=== PATIENT | female | born 1970 | race Caucasian/White ===

== ENCOUNTER 2019-07-22 19:54 | Emergency (ER) | payer MEDICARE, SELFPAY ==
[2019-07-22 20:17] VITALS: BP 103/64; PULSE 67; RESP 16; TEMP 36.4; O2SAT 98; BMI 27.3
--- NOTE | 2019-07-22 21:44 | ED_ITS ---
HPI - Back Pain/Injury General Chief Complaint: Back Pain/Injury Stated Complaint: delaney horse in butt x2 1/2 days Time Seen by Provider: 07/22/19 20:21 Source: patient Mode of arrival: Ambulatory Limitations: no limitations History of Present Illness HPI Narrative: 49-year-old female smoker with history of renal disease presents with a chief complaint of left buttock pain and some radiation down the back of her leg for the past few days. 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 She denies any trouble controlling bowel or bladder. She has no fever or chills. She denies any foot drop or lower extremity weakness, numbness or tingling. Her pain is better with rest and worse with motion or palpation MD Complaint: back pain Onset (ago): day(s) Duration: constant Similar Symptoms Previously: Yes Location: lumbar spine and left lower back Severity: moderate Quality: stabbing and aching Radiation: left leg Relieving factors: immobilization Exacerbating factors: movement and walking Associated symptoms: denies other symptoms Treatments prior to arrival: acetaminophen Related Data Previous Rx's Medication Instructions Recorded ketorolac 10 mg PO Q6H PRN #10 tab 07/22/19 lidocaine 1 patch TOP DAILY #15 each 07/22/19 Allergies Allergy/AdvReac Type Severity Reaction Status Date / Time No Known Drug Allergies Allergy Verified 07/22/19 22:51 Review of Systems Constitutional Constitutional: Denies chills, Denies fatigue, Denies fever(s), Denies frequent falls, Denies lethargy and Denies weakness Eyes Eyes: Denies change in vision, Denies eye discharge, Denies irritation and Denies loss of vision ENT Ears, Nose, Mouth, and Throat: Denies change in voice, Denies dizziness, Denies neck pain, Denies sore throat and Denies throat swelling Cardiovascular Cardiovascular: Denies chest pain, Denies irregular heart rhythm, Denies lightheadedness, Denies palpitations, Denies dyspnea, Denies dyspnea on exertion and Denies orthopnea Respiratory Respiratory: Denies cough, Denies dyspnea, Denies dyspnea on exertion and Denies wheezing Gastrointestinal Gastrointestinal: Denies abdominal pain, Denies change in bowel habits, Denies diarrhea, Denies nausea and Denies vomiting Genitourinary Genitourinary: Denies hematuria, Denies flank pain, Denies urinary incontinence and Denies urinary urgency Musculoskeletal Musculoskeletal: Reports back pain, Denies muscle weakness, Denies neck pain, Denies numbness and Denies tingling Integumentary/Breasts Skin/Breast: Denies pruritus, Denies erythema, Denies rash and Denies wounds Neurologic Neurologic: Denies behavioral changes, Denies confusion, Denies dizziness, Denies frequent falls, Denies loss of vision, Denies numbness, Denies tingling and Denies weakness Psychiatric Psychiatric: Denies anxiety, Denies behavioral changes, Denies confusion, Denies depression, Denies homicidal ideation and Denies suicidal ideation Endocrine Endocrine: Denies fatigue, Denies flushing and Denies palpitations Hematologic/Lymphatic Hematologic/Lymphatic: Denies easy bruising Allergic/Immunologic Allergic/Immunologic: Denies urticaria, Denies throat swelling and Denies wheezing PFSH Social History Smoking Status: Current every day smoker Social History Smoking Status: Current every day smoker Exam Narrative Exam Narrative: GENERAL: [49] year old patient appears stated age. Well- nourished, well-developed patient, in mild distress, rubbing her left lower back and buttock HEAD: Atraumatic. Normocephalic. EYES: Pupils equal round and reactive. Extraocular motions intact. No scleral icterus. No injection or drainage. ENT: Nose without bleeding, purulent drainage. Throat without erythema, tonsillar hypertrophy or exudate. Airway patent. NECK: Trachea midline. Non tender CARDIOVASCULAR: Regular rate and rhythm without murmurs, gallops, or rubs. RESPIRATORY: Clear to auscultation. Breath sounds equal bilaterally. No wheezes, rales, or rhonchi. GASTROINTESTINAL: Abdomen soft, non-tender, nondistended. EXTREMITIES: No edema or joint tenderness. BACK: Spasm noted in left upper buttock, full but painful range of motion noted. Lower extremity reflexes (patellar) are intact, sensation intact, no saddle anesthesia. NEURO: AOx3. SKIN: No rash or erythema of visible areas Initial Vital Signs Initial Vital Signs: Vital Signs Temperature 97.5 F L 07/22/19 20:17 Pulse Rate 67 07/22/19 20:17 Respiratory Rate 16 07/22/19 20:17 Blood Pressure 103/64 07/22/19 20:17 Pulse Oximetry 98 07/22/19 20:17 Course Orders Ordered: Discontinued Medications Ketorolac Tromethamine (Toradol) 60 mg IM NOW ONE Stop: 07/22/19 22:23 Last Admin: 07/22/19 22:39 Dose: 60 mg Documented by: JULITO Lidocaine (Lidoderm) 1 each TOP NOW ONE Stop: 07/22/19 22:23 Last Admin: 07/22/19 22:40 Dose: 1 each Documented by: JULITO Vital Signs Vital signs: Vital Signs - 8 hr 07/22/19 20:17 07/22/19 23:07 Temperature 97.5 F L Pulse Rate 67 86 Respiratory Rate 16 14 Blood Pressure 103/64 122/74 Pulse Oximetry 98 96 Discharge Plan Departure Patient Disposition: Home Clinical Impression: Strain of lumbar region Qualifiers: Encounter type: initial encounter Qualified Code(s): S39.012A - Strain of muscle, fascia and tendon of lower back, initial encounter Discharge Date/Time: 07/22/19 23:08 Instructions: DI for Low Back Pain Activity Restrictions/Additional Instructions: *You have been diagnosed with [ left lumbar pain ] *What to do: *Take medications as directed *Follow up with your primary care provider in 2-3 days, call for an appointment. Let them know you were seen in the Emergency Department and that we ask that you be seen in follow up *Return to ER if you should have any new, worsening or concerning symptoms Prescriptions: New lidocaine 5 % adhesive patch,medicated 1 patch TOP DAILY Qty: 15 RF: 0 ketorolac 10 mg tablet 10 mg PO Q6H PRN (Reason: pain) Qty: 10 RF: 0 Referrals: Jorge Wolfe MD [Primary Care Provider] -
[2019-07-22] MEDS: KETOROLAC 60 MG/2 ML VIAL IM (22:39)
[2019-07-22] MEDS: LIDOCAINE PATCH 1 EACH ADH..PATCH TOP (22:40)
[2019-07-22 23:07] VITALS: BP 122/74; PULSE 86; RESP 14; O2SAT 96
== END 2019-07-22 23:08 | disposition home or self-care (01) ==
PROVIDERS: Emergency Provider Emergency Medicine; PCP Internal Medicine
DX: S39.012A Strain of muscle, fascia and tendon of lower back, initial encounter (principal)
CPT/HCPCS: 96372; 99282; 99283; J1885

== ENCOUNTER → 2021-02-26 14:26 | Outpatient (CLI) | payer MEDICARE, SELFPAY | PROVIDERS: PCP Otolaryngology; Referring Provider Otolaryngology; Visit Provider Nurse Practitioner Family | DX: E11.621 Type 2 diabetes mellitus with foot ulcer (principal); L97.511 Non-pressure chronic ulcer of other part of right foot limited to breakdown of skin; L97.421 Non-pressure chronic ulcer of left heel and midfoot limited to breakdown of skin | CPT/HCPCS: 99203; 99214 ==

== ENCOUNTER → 2021-03-10 13:40 | Outpatient (CLI) | payer MEDICARE, SELFPAY ==
--- NOTE | 2021-03-10 | DI.MRI.S_ITS ---
PROCEDURE: MR BRAIN (IAC) WWO CON INDICATIONS: Sudden idiopathic hearing loss, right ear TECHNIQUE: Noncontrast sagittal T1 spin echo, axial FLAIR, axial gradient echo, axial diffusion and ADC through the brain. Axial thin-slice 3D CISS, coronal TruFISP, axial T1 spin echo with fat saturation through the internal auditory canals. After the administration of contrast, thin slice axial and coronal T1 spin echo with fat saturation through the internal auditory canals, and axial T1 spin echo with fat saturation through the brain. COMPARISON: None. FINDINGS: Image quality: Diagnostic, with note made of motion artifact. Cerebellopontine angles: No cerebellopontine angle masses. Inner ear structures appear normally formed. No suspicious enhancement in the internal auditory canal or along the course of the 7th cranial nerve. CSF spaces: Ventricles are normal in size and shape. No extra-axial fluid collections. Basal cisterns are patent. Brain: No intracranial bleeds or mass effects. Law-white matter interface is intact. No abnormal intracranial enhancement. Diffusion weighted images demonstrate no acute ischemic insults. Brainstem appears normal. Normal intravascular flow voids are present. Skull and face: Calvarial marrow signal is normal. Orbits appear normal. Sinuses: Sinuses and mastoids are clear. IMPRESSION: No significant abnormality is seen. Specifically, no masses or abnormal enhancement are seen within the cerebellopontine angle cisterns or within the internal auditory canals. Dictated by: Brendan Holt M.D. on 03/10/2021 at 14:17 Approved by: Brendan Holt M.D. on 03/10/2021 at 14:19
== END ==
PROVIDERS: PCP Otolaryngology; Referring Provider Otolaryngology; Visit Provider Otolaryngology
DX: H91.21 Sudden idiopathic hearing loss, right ear (principal); R42 Dizziness and giddiness; H83.01 Labyrinthitis, right ear; N18.6 End stage renal disease; E11.69 Type 2 diabetes mellitus with other specified complication
CPT/HCPCS: 70553

== ENCOUNTER → 2021-03-20 10:25 | Outpatient (CLI) | payer MEDICARE, SELFPAY | PROVIDERS: PCP Otolaryngology; Referring Provider Otolaryngology; Visit Provider Nurse Practitioner Family | DX: E11.621 Type 2 diabetes mellitus with foot ulcer (principal); L97.511 Non-pressure chronic ulcer of other part of right foot limited to breakdown of skin; L97.428 Non-pressure chronic ulcer of left heel and midfoot with other specified severity; L97.521 Non-pressure chronic ulcer of other part of left foot limited to breakdown of skin; E11.22 Type 2 diabetes mellitus with diabetic chronic kidney disease; Z99.2 Dependence on renal dialysis; N18.9 Chronic kidney disease, unspecified | CPT/HCPCS: 99212; 99215 ==

== ENCOUNTER 2021-03-20 11:08 | Emergency (ER) | payer MEDICARE, MEDICAID, SELFPAY ==
[2021-03-20 11:11] VITALS: BP 124/55; PULSE 83; RESP 15; TEMP 36.8; O2SAT 94; BMI 39.0
--- NOTE | 2021-03-20 11:54 | DI.RAD.S_ITS ---
PROCEDURE: XR FOOT LT MIN 3V INDICATIONS: wound outer aspect of 5th metatarsal. ? osteo TECHNIQUE: 3 views of the foot were acquired. COMPARISON: None. FINDINGS: Bones: No fractures or dislocations. No suspicious bony lesions. Soft tissues: No tibiotalar joint effusion. Achilles tendon appears normal. Note is made of cutaneous irregularity over the lateral aspect of the 5th metatarsal head, consistent with reported wound in that area. IMPRESSION: No underlying osteomyelitis at the 5th metatarsal head area. Cutaneous irregularity is consistent with ulceration. Dictated by: Teofilo Cabello M.D. on 03/20/2021 at 12:47 Approved by: Teofilo Cabello M.D. on 03/20/2021 at 12:49
[2021-03-20 12:40] VITALS: PULSE 70
--- NOTE | 2021-03-20 12:41 | PC.NURSE ---
area at base of right 5th metatarsal is white w/ black center. warmth around it. Pt has baseline neuropathy.
[2021-03-20 12:43] VITALS: PULSE 78; RESP 24; TEMP 37.1; O2SAT 90
[2021-03-20 12:53] LABS: Add Manual Diff / Slide Review NO; Basophils Absolute Auto 100 /uL (0-100); Eosinophils Absolute Auto 200 /uL (0-450); Eosinophils Percent Auto 1.9 % (2-4); Hematocrit 35.2 % (36-46); Hemoglobin 11.9 g/dL (12.0-16.0); Lymphocytes Absolute Auto 1000 /uL (1100-4500); Mean Corpuscular HGB Conc 33.7 % (30-36); Mean Corpuscular Hemoglobin 34.5 PG (26-34); Mean Corpuscular Volume 102.4 fL (80-100); Monocytes Absolute Auto 700 /uL (0-900); Monocytes Percent Auto 8.4 % (3-14); Neutrophils Absolute Auto 6700 /uL (1500-7000); Neutrophils Percent Auto 76.7 % (50-75); Platelet Count 277 X10^3/uL (150-400); Red Blood Cell Count 3.44 X10^6/uL (4.0-5.2); Red Cell Distribution Width 14.5 % (11.6-14.8); White Blood Cell Count 8.7 X10^3/uL (4.5-11.0)
[2021-03-20 12:58] LABS: Prothrombin Time 11.6 SECONDS (10.1-12.7)
[2021-03-20 13:01] LABS: PTT Partial Thromboplastin Tim 34 SECONDS (26.4-36.2)
[2021-03-20 13:02] LABS: Alanine Aminotransferase 11 IU/L (<35); Albumin 3.7 g/dL (3.5-5.0); Albumin Globulin Ratio 1.2 (1.0-2.8); Alkaline Phosphatase 125 U/L (38-126); Aspartate Aminotransferase 20 IU/L (14-36); BUN Creatinine Ratio 5.6 (6-22); Bilirubin Total 0.3 mg/dL (0.2-1.3); Blood Urea Nitrogen 29 mg/dL (7-17); Calcium 9.1 mg/dL (8.4-10.2); Carbon Dioxide 29 mmol/L (22-32); Chloride 97 mmol/L (98-107); Estimated Glomerular Filt Rate 8.8 mL/min (>60); Globulin 3.1 g/dL (1.7-4.1); Glucose 190 mg/dL (70-100); HEMOLYSIS < 15 (0-50); Lipase 377 U/L (23-300); Potassium 3.6 mmol/L (3.4-5.1); Sodium 136 mmol/L (137-145); Total Protein 6.8 g/dL (6.3-8.2)
[2021-03-20 13:03] LABS: Lactate (Lactic Acid) 1.1 mmol/L (0.7-2.1)
[2021-03-20 13:06] LABS: C-Reactive Protein Quant 4.1 mg/dL (<1.0)
[2021-03-20 13:19] LABS: Procalcitonin 0.24 ng/mL (<0.5)
[2021-03-20 13:26] LABS: Erythrocyte Sedimentation Rate 41 MM/HR (0-20)
--- NOTE | 2021-03-20 14:49 | ED_ITS ---
HPI - Extremity Problem General Chief complaint: Extremity Problem,Nontraumatic Stated complaint: sent from wound care, left foot infection Time Seen by Provider: 03/20/21 14:43 Source: patient Mode of arrival: Wheelchair Limitations: no limitations History of Present Illness HPI Narrative: 51-year-old female comes emergency department sent from Wound Care for an infection in her left foot. Patient has a chronic ulcer over the distal 5th metatarsal which patient describes as a bunion. Patient states he has been there for a long period of time she states there has been a wound there for a long period of time. She has noted some increasing redness and swelling adjacent. She has increasing pain she does have some neuropathy but states she has pretty good sensation in her feet. She denies fevers or chills she denies any other new symptoms. Patient states that she takes medication for hypertension, dyslipidemia. She does take Plavix and has a history of heart attack. Patient denies any allergies to medications. Related Data Previous Rx's Medication Instructions Recorded ketorolac 10 mg PO Q6H PRN #10 tab 07/22/19 lidocaine 1 patch TOP DAILY #15 each 07/22/19 doxycycline hyclate 100 mg PO BID #20 tab 03/20/21 Allergies Allergy/AdvReac Type Severity Reaction Status Date / Time No Known Drug Allergies Allergy Verified 03/20/21 11:19 Review of Systems Review of Systems ROS Unobtainable: All systems reviewed & are unremarkable except as noted in HPI and below Patient History Social History Smoking Status: Current every day smoker Smoking Status: Current every day smoker alcohol intake frequency: other Substance Use Type: marijuana Exam Narrative Exam Narrative: GENERAL: Alert and oriented x three, well-nourished woman sitting on the rolling stool in the HEENT: Head normocephalic, atraumatic, EOMI, pupils reactive, face symmetric, moist mucous membranes NECK: Supple, full range of motion CARDIOVASCULAR: Regular rate and rhythm without murmurs, rubs or gallops. RESPIRATORY: Breath sounds equal bilaterally, no wheezes rales or rhonchi. ABDOMEN: Soft, nontender. Normoactive bowel sounds all 4 quadrants. No guarding or rebound, rigidity, no mass EXTREMITIES: Normal range of motion, no clubbing. Patient has what is appears to be a chronic ulcer over the distal 5th metatarsal on her left foot. There is a surrounding area about a cm of erythema with swelling. Patient is tender feldman rrounding. There is no drainage from the site. The wound itself appears dry and has a dark scabbed over center. Patient has no other bony tenderness. She has normal movement throughout her foot. She has sensation to light touch in all 5 toes. Patient does have cap refill less than 2 seconds in all 5 toes. With a palpable pulse. NEUROLOGICAL: Cranial nerves II through XII grossly intact. Moving all extremities SKIN: Warm, dry, no petechiae, no rashes or lesions other than noted above. Initial Vital Signs Initial Vital Signs: Vital Signs Temperature 98.3 F 03/20/21 11:11 Pulse Rate 83 03/20/21 11:11 Respiratory Rate 15 03/20/21 11:11 Blood Pressure 124/55 L 03/20/21 11:11 Pulse Oximetry 94 03/20/21 11:11 Course Orders Ordered: ED Orders 03/20/21 11:54 XR foot LT min 3V Stat 03/20/21 12:35 CRP [C-Reactive Protein Quant] Stat Complete Blood Count AUTO DIFF Stat Comprehensive Metabolic Panel Stat Erythrocyte Sedimentation Rate Stat Lactate (Lactic Acid) Stat Lipase Stat Partial Thromboplastin Time Stat Procalcitonin Stat Prothrombin Time INR Stat 03/20/21 13:06 Blood Culture Stat Discontinued Medications Sodium Chloride (Normal Saline 0.9%) 1,000 mls @ 1,000 mls/hr IV BOLUS ONE Stop: 03/20/21 13:08 Last Admin: 03/20/21 12:38 Dose: Not Given Documented by: RAND Vital Signs Vital signs: Vital Signs - 8 hr 03/20/21 11:11 03/20/21 12:40 03/20/21 12:43 Temperature 98.3 F 98.8 F Pulse Rate 83 78 Pulse Rate [Bilateral Dorsalis Pedis] 70 Respiratory Rate 15 24 Blood Pressure 124/55 L Pulse Oximetry 94 90 L 03/20/21 15:08 Temperature Pulse Rate 86 Pulse Rate [Bilateral Dorsalis Pedis] Respiratory Rate 18 Blood Pressure 135/87 Pulse Oximetry 93 MDM - Extremity (Nontraumatic) Lab Data Result diagrams: 03/20/21 12:35 03/20/21 12:35 Labs: Lab Results 05/03/20/21 03/20/21 Range/Units 12:35 12:35 12:35 WBC 8.7 (4.5-11.0) X10^3/uL RBC 3.44 L (4.0-5.2) X10^6/uL Hgb 11.9 L (12.0-16.0) g/dL Hct 35.2 L (36-46) % MCV 102.4 H (80-100) fL MCH 34.5 H (26-34) PG MCHC 33.7 (30-36) % RDW 14.5 (11.6-14.8) % Plt Count 277 (150-400) X10^3/uL Neut % (Auto) 76.7 H (50-75) % Lymph % (Auto) 12.0 L (25-40) % Pickens % (Auto) 8.4 (3-14) % Eos % (Auto) 1.9 L (2-4) % Baso % (Auto) 1.0 (0-2) % Neut # (Auto) 6700 (3576-8140) /uL Lymph # (Auto) 1000 L (5330-4743) /uL Pickens # (Auto) 700 (0-900) /uL Eos # (Auto) 200 (0-450) /uL Baso # (Auto) 100 (0-100) /uL ESR (0-20) MM/HR PT 11.6 (10.1-12.7) SECONDS INR 1.0 (0.9-1.3) APTT 34 (26.4-36.2) SECONDS Sodium 136 L (137-145) mmol/L Potassium 3.6 (3.4-5.1) mmol/L Chloride 97 L (98-107) mmol/L Carbon Dioxide 29 (22-32) mmol/L BUN 29 H (7-17) mg/dL Creatinine 5.17 H (0.52-1.04) mg/dL Estimated GFR 8.8 L (>60) mL/min BUN/Creatinine Ratio 5.6 L (6-22) Glucose 190 H (70-100) mg/dL Lactate (0.7-2.1) mmol/L Calcium 9.1 (8.4-10.2) mg/dL Total Bilirubin 0.3 (0.2-1.3) mg/dL AST 20 (14-36) IU/L ALT 11 (<35) IU/L Alkaline Phosphatase 125 (38-126) U/L C-Reactive Protein (<1.0) mg/dL Total Protein 6.8 (6.3-8.2) g/dL Albumin 3.7 (3.5-5.0) g/dL Globulin 3.1 (1.7-4.1) g/dL Albumin/Globulin Ratio 1.2 (1.0-2.8) Lipase 377 H (23-300) U/L Procalcitonin 0.24 (<0.5) ng/mL 03/20/21 03/20/21 03/20/21 Range/Units 12:35 12:35 12:35 WBC (4.5-11.0) X10^3/uL RBC (4.0-5.2) X10^6/uL Hgb (12.0-16.0) g/dL Hct (36-46) % MCV (80-100) fL MCH (26-34) PG MCHC (30-36) % RDW (11.6-14.8) % Plt Count (150-400) X10^3/uL Neut % (Auto) (50-75) % Lymph % (Auto) (25-40) % Pickens % (Auto) (3-14) % Eos % (Auto) (2-4) % Baso % (Auto) (0-2) % Neut # (Auto) (6738-5652) /uL Lymph # (Auto) (5552-6577) /uL Pickens # (Auto) (0-900) /uL Eos # (Auto) (0-450) /uL Baso # (Auto) (0-100) /uL ESR 41 H (0-20) MM/HR PT (10.1-12.7) SECONDS INR (0.9-1.3) APTT (26.4-36.2) SECONDS Sodium (137-145) mmol/L Potassium (3.4-5.1) mmol/L Chloride (98-107) mmol/L Carbon Dioxide (22-32) mmol/L BUN (7-17) mg/dL Creatinine (0.52-1.04) mg/dL Estimated GFR (>60) mL/min BUN/Creatinine Ratio (6-22) Glucose (70-100) mg/dL Lactate 1.1 (0.7-2.1) mmol/L Calcium (8.4-10.2) mg/dL Total Bilirubin (0.2-1.3) mg/dL AST (14-36) IU/L ALT (<35) IU/L Alkaline Phosphatase (38-126) U/L C-Reactive Protein 4.1 H (<1.0) mg/dL Total Protein (6.3-8.2) g/dL Albumin (3.5-5.0) g/dL Globulin (1.7-4.1) g/dL Albumin/Globulin Ratio (1.0-2.8) Lipase (23-300) U/L Procalcitonin (<0.5) ng/mL Imaging Data Extremity x-ray #1: Radiologist's Impression: Margarita Carbajal 51 F [address] [id number] ReportSigned Patient: Margarita Carbajal DMR#: [id number]: 1970Acct:[id number]/Sex: 51 / FDate of Service: 03/20/21Loc: EDAccession Number: [id number] Procedure: XR foot LT min 3V Ordering Provider: Kalina Giordano D.O. PROCEDURE: XR FOOT LT MIN 3V INDICATIONS: wound outer aspect of 5th metatarsal. ? osteo TECHNIQUE: 3 views of the foot were acquired. COMPARISON: None. FINDINGS: Bones: No fractures or dislocations. No suspicious bony lesions. Soft tissues: No tibiotalar joint effusion. Achilles tendon appears normal. Note is made of cutaneous irregularity over the lateral aspect of the 5th metatarsal head, consistent with reported wound in that area. IMPRESSION: No underlying osteomyelitis at the 5th metatarsal head area. Cutaneous irregularity is consistent with ulceration. Dictated by: Teofiol Cabello M.D. on 03/20/2021 at 12:47 Approved by: Teofilo Cabello M.D. on 03/20/2021 at 12:49 [facility] Narrative Medical decision making narrative: This is a 51-year-old female with a chronic diabetic ulcer on her foot which is had increasing swelling, pain and erythema. There is no active drainage. There is no fluctuant fluid collection that appears drainable. Patient's x-ray does not show any obvious osteomyelitis. Her labs do show an elevation in CRP and ESR. Discussed with patient plan to have her follow up with wound care possibly earlier than her scheduled appointment next Tuesday. And start her on oral antibiotics today. Patient was given return precautions. She can follow up with wound and have any additional imaging is needed if there is continued suspicion for osteomyelitis but at this time my suspicion is more for an infected diabetic ulcer on her foot. Patient feels comfortable this plan and discharged home. Discharge Plan Departure Patient Disposition: Home Clinical Impression: Infected ulcer of skin, Foot ulcer, left Instructions: DI for Wound Infection Activity Restrictions/Additional Instructions: Follow up with wound care, call today or Tuesday to facilitate closer follow-up before Tuesday. Take antibiotics until completely gone. Wound Care: Keep wound(s) clean and dry. Wash daily with soap and water only, dry thoroughly Do not use over the counter products (alcohol or peroxide)on the wounds unless instructed by a physician. If wound condition worsens (increased/expanding redness, developing fluid blist ers, or worsening pain), either contact your doctor for an urgent re-assessment , or return to the Emergency Department. Return if fever greater than 100.4 Fahrenheit, increased swelling, increasing pain or worsening symptoms such as increased discharge or spreading redness, rapidly increasing pain or other new or concerning symptoms. Prescriptions: New doxycycline hyclate 100 mg tablet 100 mg PO BID Qty: 20 RF: 0 No Action lidocaine 5 % adhesive patch,medicated 1 patch TOP DAILY Qty: 15 RF: 0 ketorolac 10 mg tablet 10 mg PO Q6H PRN (Reason: pain) Qty: 10 RF: 0 Referrals: Jorge Wolfe MD [Primary Care Provider] -
[2021-03-20 15:08] VITALS: BP 135/87; PULSE 86; RESP 18; O2SAT 93
== END 2021-03-20 15:09 | disposition home or self-care (01) ==
PROVIDERS: Emergency Provider Emergency Medicine; PCP Internal Medicine
DX: E11.621 Type 2 diabetes mellitus with foot ulcer (principal); L08.9 Local infection of the skin and subcutaneous tissue, unspecified; L97.511 Non-pressure chronic ulcer of other part of right foot limited to breakdown of skin; L97.428 Non-pressure chronic ulcer of left heel and midfoot with other specified severity; L97.521 Non-pressure chronic ulcer of other part of left foot limited to breakdown of skin; E11.22 Type 2 diabetes mellitus with diabetic chronic kidney disease; Z99.2 Dependence on renal dialysis; N18.9 Chronic kidney disease, unspecified
CPT/HCPCS: 36415; 73630; 80053; 83605; 83690; 84145; 85025; 85610; 85651; 85730; 86140; 87040; 99215; 99284

== ENCOUNTER → 2021-03-27 11:04 | Outpatient (CLI) | payer MEDICARE, SELFPAY | PROVIDERS: PCP Internal Medicine; Referring Provider Internal Medicine; Visit Provider Nurse Practitioner Family | DX: E11.621 Type 2 diabetes mellitus with foot ulcer (principal); L08.9 Local infection of the skin and subcutaneous tissue, unspecified; L97.522 Non-pressure chronic ulcer of other part of left foot with fat layer exposed; L97.511 Non-pressure chronic ulcer of other part of right foot limited to breakdown of skin; L97.421 Non-pressure chronic ulcer of left heel and midfoot limited to breakdown of skin | CPT/HCPCS: 11042; 87070; 87075; 87077; 87147; 87186; 87205; 97597; 99214 ==

== ENCOUNTER → 2021-04-03 11:45 | Outpatient (CLI) | payer MEDICARE, SELFPAY | PROVIDERS: PCP Internal Medicine; Referring Provider Internal Medicine; Visit Provider Family Medicine | DX: E11.621 Type 2 diabetes mellitus with foot ulcer (principal); L08.9 Local infection of the skin and subcutaneous tissue, unspecified; L97.511 Non-pressure chronic ulcer of other part of right foot limited to breakdown of skin; L97.522 Non-pressure chronic ulcer of other part of left foot with fat layer exposed; E11.22 Type 2 diabetes mellitus with diabetic chronic kidney disease; N18.5 Chronic kidney disease, stage 5; Z99.2 Dependence on renal dialysis | CPT/HCPCS: 11042; 73718; 99213 ==

== ENCOUNTER → 2021-04-03 13:09 | Outpatient (CLI) | payer MEDICARE, MEDICAID, SELFPAY ==
--- NOTE | 2021-04-03 | DI.MRI.S_ITS ---
PROCEDURE: MRFOOT LT WO CON INDICATIONS: Non-pressure chronic ulcer TECHNIQUE: Noncontrast sagittal T1 spin echo and T2 fast spin echo with fat saturation, long-axis T1 spin echo and STIR, short-axis T1 spin echo with and without fat saturation and T2 fast spin echo with fat saturation through the forefoot. COMPARISON: [facility], CR, XR FOOT LT MIN 3V, 03/20/2021, 12:09. FINDINGS: Image quality: Excellent. Bones and joints: There is irregularity of the 1st proximal phalanx with mild osseous edema, likely related to subacute to chronic prior trauma. Mild T2-hyperintense signal is seen at the lateral aspect of the 5th metatarsal head and 5th proximal phalangeal base adjacent to the skin ulcer without definite hypointense T1 signal. Degenerative cystic changes are seen in the lateral hallux sesamoid. Scattered degenerative changes are seen in the interphalangeal joints. Moderate degenerative changes are noted at the 2nd through 5th tarsometatarsal joints. Degenerative changes also seen at the navicular cuneiform articulations. Soft tissues: A skin defect is seen at the lateral aspect of the forefoot adjacent to the 5th metatarsal head with associated soft tissue edema. No focal fluid collection or abscess is seen. Mild nonspecific subcutaneous edema is seen at the dorsum of the foot. There is edema and mild fatty infiltration of the intrinsic foot musculature, compatible with chronic denervation changes. Visualized flexor and extensor tendons appear intact. The distal insertions of the peroneus brevis and longus tendons appear intact. The principal Lisfranc ligament appears intact. No soft tissue ganglion cysts or bursal fluid collections. Sagittal images demonstrate no evidence for plantar plate tears. IMPRESSION: 1. Soft tissue ulcer is seen at the lateral aspect of the forefoot adjacent to the 5th metatarsal head. There is mild T2-hyperintense signal in the adjacent 5th metatarsal head and 5th proximal phalanx without associated hypointense T1 signal, which is nonspecific and may represent reactive edema rather than osteomyelitis. No focal cortical destruction or septic arthritis is seen. 2. Osseous irregularity at the distal aspect of the 1st distal phalanx with mild edema is likely related to prior trauma. 3. Diffuse edema and mild fatty infiltration throughout the intrinsic foot musculature is most likely related to chronic denervation changes. 4. Moderate degenerative changes throughout the midfoot. Dictated by: Antonino Driscoll M.D. on 04/03/2021 at 14:23 Approved by: Antonino Driscoll M.D. on 04/03/2021 at 14:36
== END ==
PROVIDERS: PCP Internal Medicine; Referring Provider Family Medicine; Visit Provider Family Medicine
DX: L97.529 Non-pressure chronic ulcer of other part of left foot with unspecified severity (principal); L08.9 Local infection of the skin and subcutaneous tissue, unspecified; L97.522 Non-pressure chronic ulcer of other part of left foot with fat layer exposed; L97.421 Non-pressure chronic ulcer of left heel and midfoot limited to breakdown of skin; E11.621 Type 2 diabetes mellitus with foot ulcer
CPT/HCPCS: 73718

== ENCOUNTER → 2021-04-10 11:38 | Outpatient (CLI) | payer MEDICARE, SELFPAY | PROVIDERS: PCP Internal Medicine; Referring Provider Internal Medicine; Visit Provider Nurse Practitioner Family | DX: E11.621 Type 2 diabetes mellitus with foot ulcer (principal); L08.9 Local infection of the skin and subcutaneous tissue, unspecified; L97.522 Non-pressure chronic ulcer of other part of left foot with fat layer exposed; L97.511 Non-pressure chronic ulcer of other part of right foot limited to breakdown of skin | CPT/HCPCS: 11042; 87070; 87075; 87077; 87186; 87205; 97597; 99214 ==

== ENCOUNTER → 2021-04-17 11:28 | Outpatient (CLI) | payer MEDICARE, SELFPAY | PROVIDERS: PCP Internal Medicine; Referring Provider Internal Medicine; Visit Provider Nurse Practitioner Family | DX: E11.621 Type 2 diabetes mellitus with foot ulcer (principal); L97.511 Non-pressure chronic ulcer of other part of right foot limited to breakdown of skin; L97.522 Non-pressure chronic ulcer of other part of left foot with fat layer exposed; L08.9 Local infection of the skin and subcutaneous tissue, unspecified; Z91.19 Patient's noncompliance with other medical treatment and regimen; E11.22 Type 2 diabetes mellitus with diabetic chronic kidney disease; N18.5 Chronic kidney disease, stage 5; Z99.2 Dependence on renal dialysis | CPT/HCPCS: 11042; 99214 ==

== ENCOUNTER → 2021-04-23 15:33 | Outpatient (CLI) | payer MEDICARE, SELFPAY | PROVIDERS: PCP Internal Medicine; Referring Provider Internal Medicine; Visit Provider Family Medicine | DX: E11.621 Type 2 diabetes mellitus with foot ulcer (principal); L97.522 Non-pressure chronic ulcer of other part of left foot with fat layer exposed; L97.511 Non-pressure chronic ulcer of other part of right foot limited to breakdown of skin; I73.9 Peripheral vascular disease, unspecified; Z91.19 Patient's noncompliance with other medical treatment and regimen; E11.40 Type 2 diabetes mellitus with diabetic neuropathy, unspecified; Z79.899 Other long term (current) drug therapy | CPT/HCPCS: 99214 ==

== ENCOUNTER → 2021-05-04 11:07 | Outpatient (CLI) | payer MEDICARE, SELFPAY | PROVIDERS: PCP Internal Medicine; Referring Provider Internal Medicine; Visit Provider Family Medicine | DX: E11.621 Type 2 diabetes mellitus with foot ulcer (principal); L97.511 Non-pressure chronic ulcer of other part of right foot limited to breakdown of skin; L97.522 Non-pressure chronic ulcer of other part of left foot with fat layer exposed; L84 Corns and callosities; Z91.19 Patient's noncompliance with other medical treatment and regimen; L08.9 Local infection of the skin and subcutaneous tissue, unspecified; I73.9 Peripheral vascular disease, unspecified | CPT/HCPCS: 11042; 87070; 87075; 87077; 87186; 87205; 93923; 99214 ==

== ENCOUNTER → 2021-05-14 09:03 | Outpatient (CLI) | payer MEDICARE, SELFPAY | PROVIDERS: PCP Internal Medicine; Referring Provider Internal Medicine; Visit Provider Family Medicine | DX: E11.621 Type 2 diabetes mellitus with foot ulcer (principal); L97.522 Non-pressure chronic ulcer of other part of left foot with fat layer exposed; L97.511 Non-pressure chronic ulcer of other part of right foot limited to breakdown of skin; E11.51 Type 2 diabetes mellitus with diabetic peripheral angiopathy without gangrene; Z91.19 Patient's noncompliance with other medical treatment and regimen; E11.40 Type 2 diabetes mellitus with diabetic neuropathy, unspecified; Z79.899 Other long term (current) drug therapy; L08.9 Local infection of the skin and subcutaneous tissue, unspecified; Z99.2 Dependence on renal dialysis | CPT/HCPCS: 11042; 87070; 87075; 87077; 87186; 87205; 99214 ==

== ENCOUNTER → 2021-05-21 13:18 | Outpatient (CLI) | payer MEDICARE, SELFPAY | PROVIDERS: PCP Internal Medicine; Referring Provider Internal Medicine; Visit Provider Family Medicine | DX: E11.621 Type 2 diabetes mellitus with foot ulcer (principal); L97.511 Non-pressure chronic ulcer of other part of right foot limited to breakdown of skin; L97.523 Non-pressure chronic ulcer of other part of left foot with necrosis of muscle; Z91.19 Patient's noncompliance with other medical treatment and regimen; E11.40 Type 2 diabetes mellitus with diabetic neuropathy, unspecified; Z79.899 Other long term (current) drug therapy; L08.9 Local infection of the skin and subcutaneous tissue, unspecified; Z99.2 Dependence on renal dialysis; Z79.2 Long term (current) use of antibiotics; E11.51 Type 2 diabetes mellitus with diabetic peripheral angiopathy without gangrene; E11.319 Type 2 diabetes mellitus with unspecified diabetic retinopathy without macular edema; E11.22 Type 2 diabetes mellitus with diabetic chronic kidney disease; N18.6 End stage renal disease | CPT/HCPCS: 11043; 87070; 87075; 87077; 87186; 87205; 99214 ==

== ENCOUNTER → 2021-05-29 11:20 | Outpatient (CLI) | payer MEDICARE, SELFPAY | PROVIDERS: PCP Internal Medicine; Referring Provider Internal Medicine; Visit Provider Nurse Practitioner Family | DX: E11.621 Type 2 diabetes mellitus with foot ulcer (principal); L97.522 Non-pressure chronic ulcer of other part of left foot with fat layer exposed; L97.511 Non-pressure chronic ulcer of other part of right foot limited to breakdown of skin; L08.9 Local infection of the skin and subcutaneous tissue, unspecified; E11.51 Type 2 diabetes mellitus with diabetic peripheral angiopathy without gangrene; E11.40 Type 2 diabetes mellitus with diabetic neuropathy, unspecified; Z91.19 Patient's noncompliance with other medical treatment and regimen; Z79.899 Other long term (current) drug therapy | CPT/HCPCS: 11042; 99212; 99214 ==

== ENCOUNTER → 2021-06-05 14:32 | Outpatient (CLI) | payer MEDICARE, SELFPAY | PROVIDERS: PCP Internal Medicine; Referring Provider Internal Medicine; Visit Provider Nurse Practitioner Family | DX: E11.621 Type 2 diabetes mellitus with foot ulcer (principal); L97.522 Non-pressure chronic ulcer of other part of left foot with fat layer exposed; L97.511 Non-pressure chronic ulcer of other part of right foot limited to breakdown of skin; E11.51 Type 2 diabetes mellitus with diabetic peripheral angiopathy without gangrene; Z91.19 Patient's noncompliance with other medical treatment and regimen; E11.40 Type 2 diabetes mellitus with diabetic neuropathy, unspecified; Z79.899 Other long term (current) drug therapy; L08.9 Local infection of the skin and subcutaneous tissue, unspecified | CPT/HCPCS: 11042; 97597 ==

== ENCOUNTER → 2021-07-01 14:18 | Outpatient (CLI) | payer MEDICARE, SELFPAY | PROVIDERS: PCP Internal Medicine; Referring Provider Internal Medicine; Visit Provider Family Medicine | DX: E11.621 Type 2 diabetes mellitus with foot ulcer (principal); L97.511 Non-pressure chronic ulcer of other part of right foot limited to breakdown of skin; L97.526 Non-pressure chronic ulcer of other part of left foot with bone involvement without evidence of necrosis; I73.9 Peripheral vascular disease, unspecified; Z91.19 Patient's noncompliance with other medical treatment and regimen; E11.40 Type 2 diabetes mellitus with diabetic neuropathy, unspecified; Z79.899 Other long term (current) drug therapy; L08.9 Local infection of the skin and subcutaneous tissue, unspecified | CPT/HCPCS: 11042; 11044; 87070; 87075; 87077; 87205; 99214 ==

== ENCOUNTER → 2021-07-06 13:06 | Outpatient (CLI) | payer MEDICARE, SELFPAY | PROVIDERS: PCP Internal Medicine; Referring Provider Internal Medicine; Visit Provider Family Medicine | DX: E11.621 Type 2 diabetes mellitus with foot ulcer (principal); L97.524 Non-pressure chronic ulcer of other part of left foot with necrosis of bone; L97.511 Non-pressure chronic ulcer of other part of right foot limited to breakdown of skin; B95.4 Other streptococcus as the cause of diseases classified elsewhere; M86.172 Other acute osteomyelitis, left ankle and foot; N18.6 End stage renal disease | CPT/HCPCS: 99213; 99215 ==

== ENCOUNTER 2021-08-03 16:46 | Emergency (ER) | payer MEDICARE, SELFPAY ==
[2021-08-03] VITALS (7 sets, daily range): BP systolic 95–116; BP diastolic 50–56; PULSE 78–97; RESP 15–18; TEMP 36.7; O2SAT 92–99; BMI 31.3
--- NOTE | 2021-08-03 17:39 | DI.RAD.S_ITS ---
PROCEDURE: XR FOOT LT MIN 3V INDICATIONS: recent amputation of toes L foot, now w/ s/s of infection. TECHNIQUE: 3 views of the foot were acquired. COMPARISON: [facility], CR, XR FOOT LT MIN 3V, 03/20/2021, 12:09. FINDINGS: Bones: No fractures or dislocations. No suspicious bony lesions. Generalized decrease in osseous mineralization noted. Small calcaneal spur noted. Amputation of the 4th and 5th toes at the mid metatarsal noted. Soft tissues: No tibiotalar joint effusion. Achilles tendon appears normal. Diffuse atherosclerotic small vessel vascular calcification present. Soft tissue air present present distally. IMPRESSION: Fourth and 5th toe amputation with a soft tissue air in the overlying soft tissues, concerning for gas-forming infection. No lytic lesion. Approved by: Anil Perrin M.D. on 08/03/2021 at 17:44
[2021-08-03 17:54] LABS: Add Manual Diff / Slide Review NO; Basophils Absolute Auto 0 /uL (0-100); Basophils Percent Auto 0.5 % (0-2); Eosinophils Absolute Auto 200 /uL (0-450); Eosinophils Percent Auto 3.2 % (2-4); Hematocrit 30.5 % (36-46); Hemoglobin 10.3 g/dL (12.0-16.0); Lymphocytes Absolute Auto 800 /uL (1100-4500); Lymphocytes Percent Auto 9.7 % (25-40); Mean Corpuscular HGB Conc 33.8 % (30-36); Mean Corpuscular Hemoglobin 34.3 PG (26-34); Mean Corpuscular Volume 101.3 fL (80-100); Monocytes Absolute Auto 700 /uL (0-900); Monocytes Percent Auto 9.4 % (3-14); Neutrophils Absolute Auto 6000 /uL (1500-7000); Neutrophils Percent Auto 77.2 % (50-75); Platelet Count 304 X10^3/uL (150-400); Red Blood Cell Count 3.01 X10^6/uL (4.0-5.2); Red Cell Distribution Width 15.4 % (11.6-14.8); White Blood Cell Count 7.8 X10^3/uL (4.5-11.0)
[2021-08-03 17:55] LABS: Prothrombin Time 11.4 SECONDS (10.1-12.7)
[2021-08-03 17:58] LABS: Lactate (Lactic Acid) 1.9 mmol/L (0.7-2.1); PTT Partial Thromboplastin Tim 33 SECONDS (26.4-36.2)
[2021-08-03 17:59] LABS: Alanine Aminotransferase 11 IU/L (<35); Albumin 3.6 g/dL (3.5-5.0); Albumin Globulin Ratio 1.1 (1.0-2.8); Alkaline Phosphatase 126 U/L (38-126); Aspartate Aminotransferase 20 IU/L (14-36); BUN Creatinine Ratio 6.1 (6-22); Bilirubin Total 0.4 mg/dL (0.2-1.3); Blood Urea Nitrogen 24 mg/dL (7-17); Calcium 8.3 mg/dL (8.4-10.2); Carbon Dioxide 35 mmol/L (22-32); Chloride 91 mmol/L (98-107); Globulin 3.3 g/dL (1.7-4.1); Glucose 119 mg/dL (70-100); HEMOLYSIS < 15 (0-50); Lipase 41 U/L (23-300); Potassium 3.7 mmol/L (3.4-5.1); Sodium 134 mmol/L (137-145); Total Protein 6.9 g/dL (6.3-8.2)
--- NOTE | 2021-08-03 18:06 | ED_ITS ---
HPI - Wound/Laceration General Chief Complaint: Wound/Laceration Stated Complaint: Infection in Left Foot, Post Amputation Time Seen by Provider: 08/03/21 18:05 Source: patient Mode of arrival: Family Vehicle Limitations: no limitations History of Present Illness HPI narrative: 51-year-old female diabetic with end-stage renal disease on hemodialysis Mondays, Wednesdays, Fridays presents at the request of her podia trist for evaluation of a potential wound infection on her left foot. She had been seen at an outside facility about 3 weeks ago and had a few toes from her left foot amputated. She has been followed at home by nursing who have noted some signs of infection at the incision site, a photograph was sent to her clinique counter manager who upon viewing encouraged her to present to her closest appropriate facility for evaluation. She denies any systemic findings such as fever, chills nor nausea or vomiting. She does have some pain. Related Data Previous Rx's Medication Instructions Recorded ketorolac 10 mg tablet 10 mg PO Q6H PRN #10 tab 07/22/19 lidocaine 5 % topical patch 1 patch TOP DAILY #15 each 07/22/19 doxycycline hyclate 100 mg tablet 100 mg PO BID #20 tab 03/20/21 levofloxacin 500 mg tablet 500 mg PO Q48H 10 Days #5 tab 08/03/21 Allergies Allergy/AdvReac Type Severity Reaction Status Date / Time No Known Drug Allergies Allergy Verified 08/03/21 17:30 Review of Systems Review of Systems Narrative: GENERAL: Denies chills, fatigue, malaise, fever, sweats. HEENT: Denies sinus pain, ear pain, sore throat, difficulty swallowing, dizziness. RESPIRATORY: Denies dyspnea, cough, wheezing, hemoptysis, sputum. CARDIOVASCULAR: Denies chest pain, palpitations, orthopnea, edema, GASTROINTESTINAL: Denies nausea, vomiting, abdominal pain, diarrhea, constipation, melena. : Denies dysuria, frequency, incontinence, hematuria, urinary retention. MUSCULOSKELETAL: denies weakness, joint pain, or bony pain SKIN: See HPI NEUROLOGIC: Denies weakness, headache, numbness, change in speech, confusion, seizures, incoordination. PSYCHIATRIC: No concerning psychosocial issues. 12 point review of systems is negative except for those stated above Patient History Social History Smoking Status: Current every day smoker Smoking Status: Current every day smoker alcohol intake frequency: other Substance Use Type: marijuana Exam Narrative Exam Narrative: GENERAL: [51 year old patient appears stated age. Well-developed patient, in mild distress. Resting comfortably HEAD: Atraumatic. Normocephalic. EYES: Pupils equal round and reactive. Extraocular motions intact. No scleral i cterus. No injection or drainage. ENT: Nose without bleeding, purulent drainage. Throat without erythema, tonsillar hypertrophy or exudate. Airway patent. NECK: Trachea midline. Non tender CARDIOVASCULAR: Regular rate and rhythm without murmurs, gallops, or rubs. RESPIRATORY: Clear to auscultation. Breath sounds equal bilaterally. No wheezes, rales, or rhonchi. GASTROINTESTINAL: Abdomen soft, non-tender, nondistended. EXTREMITIES: Dressing taken down, very minimal drainage on the wrap, minimal dehiscence at the most proximal edge of incision with a small amount of purulent drainage and minimal surrounding erythema, no fluctuance, patient is feeling pain. BACK: Nontender without deformity or crepitance. No flank tenderness. NEURO: AOx3. SKIN: No rash or erythema of visible areas Initial Vital Signs Initial Vital Signs: Vital Signs Pulse Rate 82 08/03/21 17:27 Blood Pressure 107/54 L 08/03/21 17:27 Pulse Oximetry 95 08/03/21 17:27 Course Orders Ordered: ED Orders 08/03/21 17:39 XR foot LT min 3V Stat 08/03/21 17:49 C-Reactive Protein Quant Stat Complete Blood Count AUTO DIFF Stat Comprehensive Metabolic Panel Stat Erythrocyte Sedimentation Rate Stat Lactate (Lactic Acid) Stat Lipase Stat Partial Thromboplastin Time Stat Procalcitonin Stat Prothrombin Time INR Stat 08/03/21 17:54 Blood Culture Stat 08/03/21 18:40 Wound Culture and Gram Stain Stat Discontinued Medications Hydrocodone Bitart/Acetaminophen (Hydrocodone/Acet 5/325 Tablet) 2 tab PO NOW ONE Stop: 08/03/21 18:44 Last Admin: 08/03/21 18:58 Dose: 2 tab Documented by: CADEN Levofloxacin (Levofloxacin 250 Mg Tablet) 500 mg PO NOW ONE Stop: 08/03/21 19:04 Last Admin: 08/03/21 19:08 Dose: 500 mg Documented by: ATAYLOR Consultations Consultation #1: discussed with patient's own clinique counter manager. Request we do not pull the stitches, requests prescription for Levaquin every other day for the week and follow-up with his office this week. Vital Signs Vital signs: Vital Signs - 8 hr 08/03/21 18:30 08/03/21 19:00 08/03/21 19:15 Pulse Rate 79 80 80 Respiratory Rate 15 Blood Pressure 100/56 L 95/50 L 95/50 L Pulse Oximetry 92 96 98 MDM - Wound/Laceration Lab Data Result diagrams: 08/03/21 17:49 08/03/21 17:49 Labs: Lab Results 08/03/21 08/03/21 08/03/21 Range/Units 17:49 17:49 17:49 WBC 7.8 (4.5-11.0) X10^3/uL RBC 3.01 L (4.0-5.2) X10^6/uL Hgb 10.3 L (12.0-16.0) g/dL Hct 30.5 L (36-46) % MCV 101.3 H (80-100) fL MCH 34.3 H (26-34) PG MCHC 33.8 (30-36) % RDW 15.4 H (11.6-14.8) % Plt Count 304 (150-400) X10^3/uL Neut % (Auto) 77.2 H (50-75) % Lymph % (Auto) 9.7 L (25-40) % [place] % (Auto) 9.4 (3-14) % Eos % (Auto) 3.2 (2-4) % Baso % (Auto) 0.5 (0-2) % Neut # (Auto) 6000 (6654-4371) /uL Lymph # (Auto) 800 L (8446-3895) /uL [place] # (Auto) 700 (0-900) /uL Eos # (Auto) 200 (0-450) /uL Baso # (Auto) 0 (0-100) /uL ESR (0-20) MM/HR PT 11.4 (10.1-12.7) SECONDS INR 1.0 (0.9-1.3) APTT 33 (26.4-36.2) SECONDS Sodium 134 L (137-145) mmol/L Potassium 3.7 (3.4-5.1) mmol/L Chloride 91 L (98-107) mmol/L Carbon Dioxide 35 H (22-32) mmol/L BUN 24 H (7-17) mg/dL Creatinine 3.94 H (0.52-1.04) mg/dL Estimated GFR 12.0 L (>60) mL/min BUN/Creatinine Ratio 6.1 (6-22) Glucose 119 H (70-100) mg/dL Lactate (0.7-2.1) mmol/L Calcium 8.3 L (8.4-10.2) mg/dL Total Bilirubin 0.4 (0.2-1.3) mg/dL AST 20 (14-36) IU/L ALT 11 (<35) IU/L Alkaline Phosphatase 126 (38-126) U/L C-Reactive Protein (<1.0) mg/dL Total Protein 6.9 (6.3-8.2) g/dL Albumin 3.6 (3.5-5.0) g/dL Globulin 3.3 (1.7-4.1) g/dL Albumin/Globulin Ratio 1.1 (1.0-2.8) Lipase 41 (23-300) U/L Procalcitonin 0.24 (<0.5) ng/mL 08/03/21 08/03/21 08/03/21 Range/Units 17:49 17:49 17:49 WBC (4.5-11.0) X10^3/uL RBC (4.0-5.2) X10^6/uL Hgb (12.0-16.0) g/dL Hct (36-46) % MCV (80-100) fL MCH (26-34) PG MCHC (30-36) % RDW (11.6-14.8) % Plt Count (150-400) X10^3/uL Neut % (Auto) (50-75) % Lymph % (Auto) (25-40) % [place] % (Auto) (3-14) % Eos % (Auto) (2-4) % Baso % (Auto) (0-2) % Neut # (Auto) (1848-3567) /uL Lymph # (Auto) (4773-8958) /uL [place] # (Auto) (0-900) /uL Eos # (Auto) (0-450) /uL Baso # (Auto) (0-100) /uL ESR 73 H (0-20) MM/HR PT (10.1-12.7) SECONDS INR (0.9-1.3) APTT (26.4-36.2) SECONDS Sodium (137-145) mmol/L Potassium (3.4-5.1) mmol/L Chloride (98-107) mmol/L Carbon Dioxide (22-32) mmol/L BUN (7-17) mg/dL Creatinine (0.52-1.04) mg/dL Estimated GFR (>60) mL/min BUN/Creatinine Ratio (6-22) Glucose (70-100) mg/dL Lactate 1.9 (0.7-2.1) mmol/L Calcium (8.4-10.2) mg/dL Total Bilirubin (0.2-1.3) mg/dL AST (14-36) IU/L ALT (<35) IU/L Alkaline Phosphatase (38-126) U/L C-Reactive Protein 8.1 H (<1.0) mg/dL Total Protein (6.3-8.2) g/dL Albumin (3.5-5.0) g/dL Globulin (1.7-4.1) g/dL Albumin/Globulin Ratio (1.0-2.8) Lipase (23-300) U/L Procalcitonin (<0.5) ng/mL Imaging Data Extremity x-ray #1: Radiologist's Impression: Launch?Image [address] [address] XRay Report Signed Patient: Margarita Carbajal MR#: [id number] : 1970 Acct:[id number] Age/Sex: 51 / F Date of Service: 08/03/21 Loc: ED Accession Number: [id number] ?? Procedure: XR foot LT min 3V Ordering Provider: Willy Campuzano D.O. PROCEDURE:? XR FOOT LT MIN 3V ? INDICATIONS:? recent amputation of toes L foot, now w/ s/s of infection. ? TECHNIQUE:? 3 views of the foot were acquired.? ? COMPARISON:? [facility], CR, XR FOOT LT MIN 3V, 03/20/2021, 12:09. ? FINDINGS:? ? Bones:? No fractures or dislocations.? No suspicious bony lesions.? Generalized decrease in osseous mineralization noted.? Small calcaneal spur noted.? Amputation of the 4th and 5th toes at the mid metatarsal noted. ? Soft tissues:? No tibiotalar joint effusion.? Achilles tendon appears normal.? Diffuse atherosclerotic small vessel vascular calcification present.? Soft tissue air present present distally. ? ? IMPRESSION:? ? Fourth and 5th toe amputation with a soft tissue air in the overlying soft tissues, concerning for gas-forming infection.? No lytic lesion.? Approved by: Anil Perrin M.D. on 08/03/2021 at 17:44? Discharge Plan Departure Patient Disposition: Home Clinical Impression: Wound infection after surgery Instructions: DI for Wound Infection Activity Restrictions/Additional Instructions: *You have been diagnosed with [mild wound infection of left foot. *What to do: *Please continue to take your regular medications as directed. [ x] New medication prescriptions sent to your pharmacy: [[facility]] [ ] New medication written as a paper prescription * I spoke with your clinique counter manager this evening, he wanted me to start you back on the antibiotics as you had previously taken, Levaquin 500 mg every other day, after dialysis. He wants to see you this week, he thought that you are already on the schedule but wanted you to call tomorrow during office hours to ensure close follow-up. *Return to Emergency Department if you should have any new, worsening or concerning symptoms, such as [fever greater than 101 F, shaking chills, worsening pain, persistent vomiting or other bothersome symptoms] Prescriptions: New levofloxacin 500 mg tablet 500 mg PO Q48H 10 Days Qty: 5 RF: 0 No Action lidocaine 5 % adhesive patch,medicated 1 patch TOP DAILY Qty: 15 RF: 0 ketorolac 10 mg tablet 10 mg PO Q6H PRN (Reason: pain) Qty: 10 RF: 0 doxycycline hyclate 100 mg tablet 100 mg PO BID Qty: 20 RF: 0 Referrals: Jorge Wolfe MD [Primary Care Provider] -
[2021-08-03 18:15] LABS: Procalcitonin 0.24 ng/mL (<0.5)
[2021-08-03 18:54] LABS: C-Reactive Protein Quant 8.1 mg/dL (<1.0)
[2021-08-03 18:57] LABS: Erythrocyte Sedimentation Rate 73 MM/HR (0-20)
[2021-08-03] MEDS: HYDROCODONE/ACET 5/325 TABLET 2 TAB PO (18:58)
[2021-08-03] MEDS: levoFLOXacin 250 MG TABLET 500 MG PO (19:08)
== END 2021-08-03 19:29 | disposition home or self-care (01) ==
PROVIDERS: Emergency Medicine; Emergency Provider Emergency Medicine; PCP Internal Medicine
DX: T81.49XA Infection following a procedure, other surgical site, initial encounter (principal); Z89.422 Acquired absence of other left toe(s)
CPT/HCPCS: 36415; 73630; 80053; 83605; 83690; 84145; 85025; 85610; 85651; 85730; 86140; 87040; 87070; 87075; 87077; 87186; 87205; 99284

== ENCOUNTER → 2024-06-19 09:37 | Outpatient (CLI) | payer MEDICARE, OTHER, SELFPAY | PROVIDERS: PCP Internal Medicine; Referring Provider Podiatrist Foot & Ankle Surgery; Visit Provider Surgery | DX: E11.621 Type 2 diabetes mellitus with foot ulcer (principal); L97.512 Non-pressure chronic ulcer of other part of right foot with fat layer exposed; L97.522 Non-pressure chronic ulcer of other part of left foot with fat layer exposed; E11.622 Type 2 diabetes mellitus with other skin ulcer; L97.822 Non-pressure chronic ulcer of other part of left lower leg with fat layer exposed; L97.812 Non-pressure chronic ulcer of other part of right lower leg with fat layer exposed; R60.0 Localized edema; L53.9 Erythematous condition, unspecified; L84 Corns and callosities; I73.9 Peripheral vascular disease, unspecified; Z87.891 Personal history of nicotine dependence; E11.22 Type 2 diabetes mellitus with diabetic chronic kidney disease | CPT/HCPCS: 11042; 87070; 87186; 87205; 99214 ==

== ENCOUNTER → 2024-06-27 09:26 | Outpatient (CLI) | payer MEDICARE, OTHER, SELFPAY | PROVIDERS: PCP Internal Medicine; Referring Provider Podiatrist Foot & Ankle Surgery; Visit Provider Surgery | DX: E11.621 Type 2 diabetes mellitus with foot ulcer (principal); L97.512 Non-pressure chronic ulcer of other part of right foot with fat layer exposed; L97.522 Non-pressure chronic ulcer of other part of left foot with fat layer exposed; E11.622 Type 2 diabetes mellitus with other skin ulcer; L97.822 Non-pressure chronic ulcer of other part of left lower leg with fat layer exposed; L97.812 Non-pressure chronic ulcer of other part of right lower leg with fat layer exposed; I73.9 Peripheral vascular disease, unspecified; R60.0 Localized edema; L84 Corns and callosities; N18.6 End stage renal disease; Z99.2 Dependence on renal dialysis | CPT/HCPCS: 11042; 97597 ==

== ENCOUNTER → 2024-06-27 10:47 | Outpatient (CLI) | payer MEDICARE, SELFPAY ==
--- NOTE | 2024-06-27 10:49 | DI.RAD.S_ITS ---
PROCEDURE: XR FOOT RT MIN 3V INDICATIONS: diabetic foot ulcers, eval for osteo TECHNIQUE: 3 views of the foot were acquired. COMPARISON: [facility], CR, XR FOOT LT MIN 3V, 08/03/2021, 17:42. [facility], CR, XR FOOT LT MIN 3V, 03/20/2021, 12:09. FINDINGS: Status post partial amputation of the 2nd- 4th digits at the level of the metatarsal necks. Age-indeterminate fragmentation of the 1st digit proximal phalangeal shaft and head, best identified on the lateral view, with associated soft tissue edema and valgus angulation of the digit. Clawtoe deformity of the 5th digit. Diffuse osseous demineralization. Vascular calcifications. Plantar calcaneal enthesopathy. No radiographic evidence of subcutaneous emphysema. IMPRESSION: Likely osteomyelitis of the 1st digit involving the proximal phalanx. Dictated by: Bryce Santacruz M.D. on 06/27/2024 at 16:23 Approved by: Bryce Santacruz M.D. on 06/27/2024 at 16:27
--- NOTE | 2024-06-27 10:49 | DI.RAD.S_ITS ---
PROCEDURE: XR FOOT LT MIN 3V INDICATIONS: diabetic foot ulcers, eval for osteo TECHNIQUE: 3 views of the foot were acquired. COMPARISON: [facility], CR, XR FOOT LT MIN 3V, 08/03/2021, 17:42. [facility], CR, XR FOOT LT MIN 3V, 03/20/2021, 12:09. FINDINGS: Status post interval amputation of the 5th ray and near complete amputation of the 4th ray to the proximal metatarsal shaft. No fracture or dislocation. No osseous erosions. No radiographic evidence of subcutaneous emphysema. Vascular calcifications. Plantar calcaneal enthesopathy. IMPRESSION: Status post interval amputation of the 4th and 5th rays without radiographic evidence of osteomyelitis at this time. Dictated by: Bryce Santacruz M.D. on 06/27/2024 at 16:27 Approved by: Bryce Santacruz M.D. on 06/27/2024 at 16:29
== END ==
PROVIDERS: PCP Family Medicine; Referring Provider Surgery; Visit Provider Surgery
DX: E11.621 Type 2 diabetes mellitus with foot ulcer (principal); Z89.422 Acquired absence of other left toe(s)
CPT/HCPCS: 73630

== ENCOUNTER → 2024-07-04 09:30 | Outpatient (CLI) | payer MEDICARE, OTHER, SELFPAY | PROVIDERS: PCP Family Medicine; Referring Provider Podiatrist Foot & Ankle Surgery; Visit Provider Surgery | DX: E11.621 Type 2 diabetes mellitus with foot ulcer (principal); L97.512 Non-pressure chronic ulcer of other part of right foot with fat layer exposed; L97.522 Non-pressure chronic ulcer of other part of left foot with fat layer exposed; E11.622 Type 2 diabetes mellitus with other skin ulcer; L97.822 Non-pressure chronic ulcer of other part of left lower leg with fat layer exposed; L97.812 Non-pressure chronic ulcer of other part of right lower leg with fat layer exposed; I73.9 Peripheral vascular disease, unspecified; R60.0 Localized edema; L84 Corns and callosities; N18.6 End stage renal disease; Z99.2 Dependence on renal dialysis | CPT/HCPCS: 11042; 97597; 99213 ==

== ENCOUNTER → 2024-07-04 | Outpatient (CLI) | payer MEDICARE, SELFPAY ==
--- NOTE | 2024-07-04 13:04 | DI.US.S_ITS ---
PROCEDURE: US ARTERIAL DUPLEX LE BI INDICATIONS: DIABETIC FOOT ULCERS TECHNIQUE: Color and pulse Doppler interrogation was performed of both lower extremity arterial systems, with image documentation. COMPARISON: [facility], CR, XR FOOT RT MIN 3V, 06/27/2024, 10:52. [facility], CR, XR FOOT LT MIN 3V, 06/27/2024, 10:52. [facility], CT, CT ANGIO AORTA RUNOFF, 07/07/2021, 20:33. [facility], US, ARTERIAL LOW.EXTREM.BILATERAL, 12/12/2017, 8:40. FINDINGS: Right lower extremity: Common femoral artery: 122 cm/sec, with triphasic flow. Deep femoral artery: Patent. Waveform could not be obtained. Proximal superficial femoral artery: 76 cm/sec, with monophasic flow. Extensive plaque is seen. Mid superficial femoral artery: 45 cm/sec, with monophasic flow. Distal superficial femoral artery: 15 cm/sec, with biphasic flow. Popliteal artery: 26 cm/sec, with monophasic flow. Posterior tibial artery: 10 cm/sec, with monophasic flow. Anterior tibial artery/dorsalis pedis: Unable to obtain due to overlying bandages. Law-scale imaging description: Extensive calcified atherosclerotic plaque. Left lower extremity: Common femoral artery: 150 cm/sec, with triphasic flow. Deep femoral artery: 60 cm/sec, with biphasic flow at bifurcation. Just distal 192 cm/sec, with triphasic flow. Proximal superficial femoral artery: 112 cm/sec, with biphasic flow. Mid superficial femoral artery: 105 cm/sec, with triphasic flow. Distal superficial femoral artery: 78 cm/sec, with triphasic flow. Popliteal artery: 84 cm/sec, with triphasic flow. Posterior tibial artery: 5 cm/sec, with monophasic flow. Anterior tibial artery/dorsalis pedis: Unable to obtain due to overlying bandages. Law-scale imaging description: Extensive calcified atherosclerotic plaque. IMPRESSION: 1. Right lower extremity: 50-99% stenosis category. Severely diminished velocities in the femoral artery through the popliteal artery with areas of monophasic flow. 2. Left lower extremity: Severely diminished blood flow in the REGIONAL TRAINER with monophasic waveform. Suspect 50-99% stenosis category. 3. Extensive calcified atherosclerotic plaque bilaterally. MARJ are not evaluated due to overlying bandages. Recommend interventional radiology consultation if not yet performed. Dictated by: Kamran Naqvi M.D. on 07/12/2024 at 10:07 Approved by: Kamran Naqvi M.D. on 07/12/2024 at 10:17
== END ==
PROVIDERS: PCP Family Medicine; Referring Provider Surgery; Visit Provider Surgery
DX: E11.621 Type 2 diabetes mellitus with foot ulcer (principal); L97.509 Non-pressure chronic ulcer of other part of unspecified foot with unspecified severity; I70.202 Unspecified atherosclerosis of native arteries of extremities, left leg; I70.201 Unspecified atherosclerosis of native arteries of extremities, right leg
CPT/HCPCS: 11042; 93925; 97597

== ENCOUNTER → 2024-07-11 10:31 | Outpatient (CLI) | payer MEDICARE, SELFPAY | LOC: WC 10:37 | PROVIDERS: PCP Family Medicine; Referring Provider Podiatrist Foot & Ankle Surgery; Visit Provider Surgery | DX: E11.622 Type 2 diabetes mellitus with other skin ulcer (principal); L97.822 Non-pressure chronic ulcer of other part of left lower leg with fat layer exposed; L97.812 Non-pressure chronic ulcer of other part of right lower leg with fat layer exposed; E11.621 Type 2 diabetes mellitus with foot ulcer; L97.512 Non-pressure chronic ulcer of other part of right foot with fat layer exposed; I73.9 Peripheral vascular disease, unspecified; R60.0 Localized edema | CPT/HCPCS: 11042 ==

== ENCOUNTER → 2024-07-23 13:42 | Outpatient (CLI) | payer MEDICARE, OTHER, SELFPAY | PROVIDERS: PCP Family Medicine; Referring Provider Podiatrist Foot & Ankle Surgery; Visit Provider Surgery | DX: E11.621 Type 2 diabetes mellitus with foot ulcer (principal); L97.512 Non-pressure chronic ulcer of other part of right foot with fat layer exposed; E11.622 Type 2 diabetes mellitus with other skin ulcer; L97.822 Non-pressure chronic ulcer of other part of left lower leg with fat layer exposed; R60.0 Localized edema; I73.9 Peripheral vascular disease, unspecified; N18.6 End stage renal disease; Z99.2 Dependence on renal dialysis; I25.10 Atherosclerotic heart disease of native coronary artery without angina pectoris | CPT/HCPCS: 11042; 97597; 99213 ==

== ENCOUNTER → 2024-07-30 10:25 | Outpatient (CLI) | payer MEDICARE, SELFPAY | LOC: WC 10:26 | PROVIDERS: PCP Family Medicine; Referring Provider Podiatrist Foot & Ankle Surgery; Visit Provider Surgery | DX: E11.42 Type 2 diabetes mellitus with diabetic polyneuropathy (principal); E11.621 Type 2 diabetes mellitus with foot ulcer; L97.512 Non-pressure chronic ulcer of other part of right foot with fat layer exposed; E11.622 Type 2 diabetes mellitus with other skin ulcer; L97.822 Non-pressure chronic ulcer of other part of left lower leg with fat layer exposed; L97.812 Non-pressure chronic ulcer of other part of right lower leg with fat layer exposed; I73.9 Peripheral vascular disease, unspecified; R60.0 Localized edema | CPT/HCPCS: 11042 ==

== ENCOUNTER → 2024-08-01 13:54 | Outpatient (CLI) | payer MEDICARE, SELFPAY ==
--- NOTE | 2024-08-01 13:56 | DI.NM.S_ITS ---
PROCEDURE: NM BONE 3 PHASE RADIOPHARMACEUTICAL: 20.5 mCi Tc-99m MDP IV. INDICATIONS: DIABETIC FOOT ULCER R DORSAL FOOT TECHNIQUE: Multiple bone scintigrams were obtained after intravenous injection of Tc-99m MDP, including flow, blood pool, and delayed images centered to the region of interest. COMPARISON: [facility], CR, XR FOOT RT MIN 3V, 06/27/2024, 10:52. FINDINGS: Radiotracer uptake of the right 1st digit on the flow, blood pool and delayed phase. IMPRESSION: Triple phase uptake of the right 1st toe, concerning for osteomyelitis. Dictated by: Jonah Villasenor M.D. on 08/02/2024 at 13:09 Approved by: Jonah Villasenor M.D. on 08/02/2024 at 13:12
== END ==
PROVIDERS: PCP Family Medicine; Referring Provider Surgery; Visit Provider Surgery
DX: E11.621 Type 2 diabetes mellitus with foot ulcer (principal); L97.519 Non-pressure chronic ulcer of other part of right foot with unspecified severity
CPT/HCPCS: 78315; A9503

== ENCOUNTER → 2024-08-06 10:45 | Outpatient (CLI) | payer MEDICARE, SELFPAY | LOC: WC 10:46 | PROVIDERS: PCP Family Medicine; Referring Provider Podiatrist Foot & Ankle Surgery; Visit Provider Surgery | DX: E11.42 Type 2 diabetes mellitus with diabetic polyneuropathy (principal); E11.621 Type 2 diabetes mellitus with foot ulcer; L97.512 Non-pressure chronic ulcer of other part of right foot with fat layer exposed; E11.622 Type 2 diabetes mellitus with other skin ulcer; L97.822 Non-pressure chronic ulcer of other part of left lower leg with fat layer exposed; L98.8 Other specified disorders of the skin and subcutaneous tissue; I73.9 Peripheral vascular disease, unspecified; R60.0 Localized edema; M79.671 Pain in right foot | CPT/HCPCS: 11042; 99213 ==

== ENCOUNTER → 2024-08-13 10:33 | Outpatient (CLI) | payer MEDICARE, SELFPAY | LOC: WC 10:34 | PROVIDERS: PCP Family Medicine; Referring Provider Podiatrist Foot & Ankle Surgery; Visit Provider Surgery | DX: E11.42 Type 2 diabetes mellitus with diabetic polyneuropathy (principal); E11.621 Type 2 diabetes mellitus with foot ulcer; L97.512 Non-pressure chronic ulcer of other part of right foot with fat layer exposed; E11.622 Type 2 diabetes mellitus with other skin ulcer; L97.812 Non-pressure chronic ulcer of other part of right lower leg with fat layer exposed; L98.8 Other specified disorders of the skin and subcutaneous tissue; R60.0 Localized edema; I73.9 Peripheral vascular disease, unspecified; M79.671 Pain in right foot | CPT/HCPCS: 11042 ==

== ENCOUNTER → 2024-08-16 10:14 | Outpatient (CLI) | payer MEDICARE, SELFPAY ==
--- NOTE | 2024-08-16 10:17 | DI.CT.S_ITS ---
PROCEDURE: CT ANGIO ABD AORTA RUNOFF INDICATIONS: PVD TECHNIQUE: After the administration of intravenous contrast, 2.5 mm sections acquired from T12 to the feet, with optional delayed image acquisition from the knees to the feet. 3-dimensional maximum intensity projection (MIP) coronal and sagittal reformats, and/or 3-dimensional volume rendering reformatting was then performed. For radiation dose reduction, the following was used: automated exposure control. COMPARISON: [facility], CT, CT ANGIO AORTA RUNOFF, 07/07/2021, 20:33. FINDINGS: Image Quality: Diagnostic. Abdominal aorta: Abdominal aorta demonstrates diffuse infrarenal calcified plaque without significant stenosis, aneurysmal dilatation or dissection. Visceral branches: Celiac artery and associated branches are patent. SMA is patent. Mild degree of calcified plaque involving the proximal segment of the SMA. Replaced common hepatic artery arising from the SMA common normal variant. Both renal arteries are diffusely atretic and heavily calcified and likely occluded related to known medical renal disease. DANIEL is patent. Right lower extremity: Diffuse heavily calcified plaque involving the right common iliac artery resulting in moderate (50-69%) stenosis involving the proximal segment. Remainder of the right common iliac artery with calcified plaque resulting in < 50% stenosis. Multifocal calcified plaque throughout the right external iliac artery resulting in mild (< 50%) stenosis. Heavily calcified plaque throughout the right internal iliac artery with occlusion to near occlusion of the proximal segment. Distal reconstitution of branches of the right internal iliac artery. Heavily calcified plaque involving the distal right common femoral artery resulting in high-grade (> 70%) stenosis. Remainder of the right common femoral artery with diffuse calcified plaque resulting in mild (< 50%) stenosis. Multifocal calcified plaque throughout the right SFA without significant stenosis. An existing stent within the distal right SFA extending into the above knee popliteal artery is patent with a mild degree of InStent stenosis. Profunda femoris artery and associated branches are patent. Heavily calcified plaque involving the right above knee popliteal artery (series 5, image 327) resulting in high-grade (> 70%) stenosis. Remainder of the right popliteal artery is patent. High takeoff of the right anterior tibial artery from the popliteal artery just above the level of the knee joint. Anterior tibial artery appears to occlude just beyond its origin. Multifocal calcified plaque throughout the anterior tibial artery with segmental occlusion throughout its length. Distal reconstitution of the anterior tibial artery at the level of the ankle joint which is patent into the dorsalis pedis artery of the foot. Right posterior tibial artery with extensive multifocal calcified plaque. Patency is unable to be fully assessed due to degree of calcified plaque. Peroneal artery with multifocal calcified plaque which appears patent. Left lower extremity: Diffuse calcified plaque throughout the left common iliac artery with heavily calcified plaque involving the proximal segment resulting in moderate (50-69%) stenosis. Remainder of the left common iliac artery without significant stenosis. Multifocal calcified plaque throughout the left external iliac artery resulting in mild (< 50%) stenosis. Transplant renal artery arising from the mid left external iliac artery appears patent without significant stenosis. Heavily calcified plaque involving the left internal neck artery origin resulting in occlusion to near occlusion. Distal branches of the internal iliac artery are patent. Heavily calcified plaque throughout the left common femoral artery resulting in mild (< 50%) stenosis. Multifocal calcified plaque throughout the left SFA without significant stenosis. An existing stent within the proximal left SFA is patent without significant InStent stenosis. Profunda femoris artery and associated branches are patent. Multifocal calcified plaque throughout the left popliteal artery resulting in mild (< 50%) stenosis. Anterior tibial artery with multifocal heavily calcified plaque resulting in moderate to high-grade stenoses, however, patency is limited due to extent of calcified plaque. Anterior tibial artery appears in line into the dorsalis pedis artery of the foot. Tibioperoneal trunk appears patent. Posterior tibial artery appears occluded just beyond its origin with extensive heavily calcified plaque throughout its length, patency of which is limited. Peroneal artery appears patent with extensive multifocal calcified plaque. Lower Chest: Extensive ground-glass opacities throughout visualized portions of both lung bases likely atelectasis versus pulmonary edema from fluid overload. Trace right-sided pleural effusion Cardiomegaly is noted. Extensive coronary artery calcifications. ABDOMEN: Liver: No solid mass. Reflux of contrast into the IVC and hepatic veins suggestive of congestive heart failure. Gallbladder: No definite calcified gallstones. Diffuse gallbladder wall thickening possibly related to fluid overload versus underlying liver disease. Cholecystitis is less likely though not excluded. Biliary ducts: No biliary dilation. Pancreas: No ductal dilation. Spleen: Size is within normal limits. Adrenal Glands: No adrenal nodules. Kidneys and Ureters: Both kidneys are diffusely atrophic with extensive intrarenal vascular calcifications. There is a non enhancement of the kidneys bilaterally compatible with known medical renal disease. 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 No evidence of hydronephrosis involving the left lower quadrant transplant kidney. Stomach and Bowel: Normal colonic caliber, without significant wall thickening. Peritoneum: Small amount of ascites within the upper abdomen and pelvis. No evidence of pneumoperitoneum. No abdominal pelvic fluid collections to suggest abscess. Ventral Wall: No ventral hernia. Diffuse anasarca is noted. Abdominal Nodes: No retroperitoneal or mesenteric adenopathy by size criteria. Vessels: Aorta as above. IVC appears patent and unremarkable. PELVIS: Pelvic Organs: Unremarkable. Bladder: Unremarkable. Pelvic Nodes: No enlarged lymph nodes. Miscellaneous: No inguinal hernias are seen. Bones: Multilevel severe compression deformities involving L2 through L4 vertebral bodies. IMPRESSION: 1. Patent aortoiliac inflow with moderate stenosis involving bilateral common iliac arteries as described. 2. Heavily calcified plaque involving the distal right common femoral artery resulting in high-grade (> 70%) stenosis. 3. Patent SFA and popliteal arteries as described above. 4. Heavily calcified plaque involving the right above knee popliteal artery resulting in > 70% stenosis. 5. Evaluation of bilateral lower extremity runoff is limited due to significant calcified plaque throughout the tibial arteries. If clinically indicated, correlation with conventional angiography is recommended. 6. Evidence of fluid overload including cardiomegaly with bilateral ground-glass opacities throughout both lung bases likely edema, trace right-sided pleural effusion and small amount of ascites. 7. Diffuse gallbladder wall thickening possibly related to fluid overload status with other considerations such as hypoproteinemia or underlying liver disease with possibility of cholecystitis less likely though not excluded. Dictated by: Yuri Aponte M.D. on 08/16/2024 at 12:37 Approved by: Yuri Aponte M.D. on 08/16/2024 at 15:10
== END ==
LOC: CT 10:16
PROVIDERS: PCP Family Medicine
DX: I73.9 Peripheral vascular disease, unspecified (principal); I51.7 Cardiomegaly; I25.10 Atherosclerotic heart disease of native coronary artery without angina pectoris; Z94.0 Kidney transplant status
CPT/HCPCS: 75635; Q9967

== ENCOUNTER → 2024-08-20 13:44 | Outpatient (CLI) | payer MEDICARE, SELFPAY | LOC: WC 13:46 | PROVIDERS: PCP Family Medicine; Referring Provider Podiatrist Foot & Ankle Surgery; Visit Provider Surgery | DX: E11.622 Type 2 diabetes mellitus with other skin ulcer (principal); L97.822 Non-pressure chronic ulcer of other part of left lower leg with fat layer exposed; E11.621 Type 2 diabetes mellitus with foot ulcer; L97.512 Non-pressure chronic ulcer of other part of right foot with fat layer exposed; R60.0 Localized edema; L98.8 Other specified disorders of the skin and subcutaneous tissue; I73.9 Peripheral vascular disease, unspecified; M79.671 Pain in right foot | CPT/HCPCS: 11042 ==

== ENCOUNTER → 2024-08-29 08:58 | Outpatient (CLI) | payer MEDICARE, OTHER, SELFPAY | PROVIDERS: PCP Family Medicine; Referring Provider Podiatrist Foot & Ankle Surgery; Visit Provider Surgery | DX: E11.621 Type 2 diabetes mellitus with foot ulcer (principal); E11.622 Type 2 diabetes mellitus with other skin ulcer; L97.512 Non-pressure chronic ulcer of other part of right foot with fat layer exposed; L97.812 Non-pressure chronic ulcer of other part of right lower leg with fat layer exposed; M86.68 Other chronic osteomyelitis, other site; R60.0 Localized edema | CPT/HCPCS: 11042; 99213 ==

== ENCOUNTER → 2024-09-03 10:34 | Outpatient (CLI) | payer MEDICARE, OTHER, SELFPAY | PROVIDERS: PCP Family Medicine; Referring Provider Podiatrist Foot & Ankle Surgery; Visit Provider Surgery | DX: E11.621 Type 2 diabetes mellitus with foot ulcer (principal); E11.622 Type 2 diabetes mellitus with other skin ulcer; L97.512 Non-pressure chronic ulcer of other part of right foot with fat layer exposed; L97.822 Non-pressure chronic ulcer of other part of left lower leg with fat layer exposed; L97.812 Non-pressure chronic ulcer of other part of right lower leg with fat layer exposed; R60.0 Localized edema; R23.4 Changes in skin texture; I73.9 Peripheral vascular disease, unspecified; M79.671 Pain in right foot | CPT/HCPCS: 11042 ==

== ENCOUNTER → 2024-09-10 10:47 | Outpatient (CLI) | payer MEDICARE, OTHER, SELFPAY | PROVIDERS: PCP Family Medicine; Referring Provider Podiatrist Foot & Ankle Surgery; Visit Provider Surgery | DX: E11.621 Type 2 diabetes mellitus with foot ulcer (principal); E11.622 Type 2 diabetes mellitus with other skin ulcer; L97.512 Non-pressure chronic ulcer of other part of right foot with fat layer exposed; L97.822 Non-pressure chronic ulcer of other part of left lower leg with fat layer exposed; R60.0 Localized edema | CPT/HCPCS: 11042 ==

== ENCOUNTER → 2024-09-17 13:22 | Outpatient (CLI) | payer MEDICARE, OTHER, SELFPAY | PROVIDERS: PCP Family Medicine; Referring Provider Podiatrist Foot & Ankle Surgery; Visit Provider Surgery | DX: E11.621 Type 2 diabetes mellitus with foot ulcer (principal); L97.512 Non-pressure chronic ulcer of other part of right foot with fat layer exposed; E11.622 Type 2 diabetes mellitus with other skin ulcer; L97.822 Non-pressure chronic ulcer of other part of left lower leg with fat layer exposed; L97.812 Non-pressure chronic ulcer of other part of right lower leg with fat layer exposed; I73.9 Peripheral vascular disease, unspecified; R60.0 Localized edema; R23.4 Changes in skin texture; M79.661 Pain in right lower leg; M79.671 Pain in right foot; N18.2 Chronic kidney disease, stage 2 (mild); Z99.2 Dependence on renal dialysis | CPT/HCPCS: 11042 ==

== ENCOUNTER → 2024-10-01 10:39 | Outpatient (CLI) | payer MEDICARE, OTHER, SELFPAY | PROVIDERS: PCP Family Medicine; Referring Provider Podiatrist Foot & Ankle Surgery; Visit Provider Surgery | DX: E11.621 Type 2 diabetes mellitus with foot ulcer (principal); L97.512 Non-pressure chronic ulcer of other part of right foot with fat layer exposed; E11.622 Type 2 diabetes mellitus with other skin ulcer; L97.822 Non-pressure chronic ulcer of other part of left lower leg with fat layer exposed; L97.812 Non-pressure chronic ulcer of other part of right lower leg with fat layer exposed; R23.4 Changes in skin texture; R60.0 Localized edema; I73.9 Peripheral vascular disease, unspecified; S80.811A Abrasion, right lower leg, initial encounter; I25.10 Atherosclerotic heart disease of native coronary artery without angina pectoris; E11.22 Type 2 diabetes mellitus with diabetic chronic kidney disease; N18.6 End stage renal disease; Z99.2 Dependence on renal dialysis | CPT/HCPCS: 11042; 99213 ==

== ENCOUNTER → 2024-10-08 10:17 | Outpatient (CLI) | payer MEDICARE, SELFPAY | LOC: WC 10:33 | PROVIDERS: PCP Family Medicine; Referring Provider Podiatrist Foot & Ankle Surgery; Visit Provider Surgery | DX: E11.42 Type 2 diabetes mellitus with diabetic polyneuropathy (principal); E11.621 Type 2 diabetes mellitus with foot ulcer; L97.512 Non-pressure chronic ulcer of other part of right foot with fat layer exposed; L97.521 Non-pressure chronic ulcer of other part of left foot limited to breakdown of skin; E11.622 Type 2 diabetes mellitus with other skin ulcer; L97.812 Non-pressure chronic ulcer of other part of right lower leg with fat layer exposed; R23.4 Changes in skin texture; I73.9 Peripheral vascular disease, unspecified; M79.671 Pain in right foot; F17.210 Nicotine dependence, cigarettes, uncomplicated; R60.0 Localized edema | CPT/HCPCS: 11042; 97602; 99214 ==

== ENCOUNTER → 2024-10-15 10:00 | Outpatient (CLI) | payer MEDICARE, OTHER, SELFPAY | PROVIDERS: PCP Family Medicine; Referring Provider Podiatrist Foot & Ankle Surgery; Visit Provider Physician Assistant | DX: E11.621 Type 2 diabetes mellitus with foot ulcer (principal); L97.512 Non-pressure chronic ulcer of other part of right foot with fat layer exposed; L97.522 Non-pressure chronic ulcer of other part of left foot with fat layer exposed; R60.0 Localized edema; R23.4 Changes in skin texture; M79.671 Pain in right foot; F17.210 Nicotine dependence, cigarettes, uncomplicated | CPT/HCPCS: 11042; 99214 ==

== ENCOUNTER → 2024-10-23 11:37 | Outpatient (CLI) | payer MEDICARE, OTHER, SELFPAY | PROVIDERS: PCP Family Medicine; Referring Provider Podiatrist Foot & Ankle Surgery; Visit Provider Surgery | DX: E11.621 Type 2 diabetes mellitus with foot ulcer (principal); L97.512 Non-pressure chronic ulcer of other part of right foot with fat layer exposed; L97.522 Non-pressure chronic ulcer of other part of left foot with fat layer exposed; R60.0 Localized edema; R23.4 Changes in skin texture; I73.9 Peripheral vascular disease, unspecified; E11.22 Type 2 diabetes mellitus with diabetic chronic kidney disease; N18.6 End stage renal disease; Z99.2 Dependence on renal dialysis; F17.210 Nicotine dependence, cigarettes, uncomplicated | CPT/HCPCS: 11042; 97597 ==

== ENCOUNTER → 2024-10-29 10:12 | Outpatient (CLI) | payer MEDICARE, OTHER, SELFPAY | PROVIDERS: PCP Family Medicine; Referring Provider Family Medicine; Visit Provider Surgery | DX: E11.621 Type 2 diabetes mellitus with foot ulcer (principal); E11.42 Type 2 diabetes mellitus with diabetic polyneuropathy; L97.512 Non-pressure chronic ulcer of other part of right foot with fat layer exposed; R60.0 Localized edema; R23.4 Changes in skin texture; I73.9 Peripheral vascular disease, unspecified; I25.10 Atherosclerotic heart disease of native coronary artery without angina pectoris; E11.22 Type 2 diabetes mellitus with diabetic chronic kidney disease; N18.6 End stage renal disease; Z99.2 Dependence on renal dialysis; F17.210 Nicotine dependence, cigarettes, uncomplicated | CPT/HCPCS: 11042; 99213 ==

== ENCOUNTER → 2024-11-01 09:42 | Outpatient (CLI) | payer MEDICARE, OTHER, SELFPAY | PROVIDERS: PCP Family Medicine; Referring Provider Podiatrist Foot & Ankle Surgery; Visit Provider Surgery | DX: E11.621 Type 2 diabetes mellitus with foot ulcer (principal); L97.512 Non-pressure chronic ulcer of other part of right foot with fat layer exposed; R60.0 Localized edema; R23.4 Changes in skin texture; M79.671 Pain in right foot | CPT/HCPCS: 99213 ==

== ENCOUNTER → 2024-11-05 10:56 | Outpatient (CLI) | payer MEDICARE, SELFPAY | LOC: WC 10:57 | PROVIDERS: PCP Family Medicine; Referring Provider Podiatrist Foot & Ankle Surgery; Visit Provider Surgery | DX: E11.621 Type 2 diabetes mellitus with foot ulcer (principal); L97.512 Non-pressure chronic ulcer of other part of right foot with fat layer exposed; E11.622 Type 2 diabetes mellitus with other skin ulcer; L97.812 Non-pressure chronic ulcer of other part of right lower leg with fat layer exposed; L98.8 Other specified disorders of the skin and subcutaneous tissue; R60.0 Localized edema; I73.9 Peripheral vascular disease, unspecified; R23.4 Changes in skin texture; E11.22 Type 2 diabetes mellitus with diabetic chronic kidney disease; N18.6 End stage renal disease; Z99.2 Dependence on renal dialysis | CPT/HCPCS: 11042; 97597; 97605; 99213 ==

== ENCOUNTER → 2024-11-08 10:37 | Outpatient (CLI) | payer MEDICARE, OTHER, SELFPAY | PROVIDERS: PCP Family Medicine; Referring Provider Podiatrist Foot & Ankle Surgery; Visit Provider Surgery | DX: E11.621 Type 2 diabetes mellitus with foot ulcer (principal); L97.512 Non-pressure chronic ulcer of other part of right foot with fat layer exposed; L98.8 Other specified disorders of the skin and subcutaneous tissue; R60.0 Localized edema; M79.671 Pain in right foot | CPT/HCPCS: 97605 ==

== ENCOUNTER → 2024-11-12 10:26 | Outpatient (CLI) | payer MEDICARE, OTHER, SELFPAY | PROVIDERS: PCP Family Medicine; Referring Provider Podiatrist Foot & Ankle Surgery; Visit Provider Surgery | DX: E11.621 Type 2 diabetes mellitus with foot ulcer (principal); L97.512 Non-pressure chronic ulcer of other part of right foot with fat layer exposed; L97.812 Non-pressure chronic ulcer of other part of right lower leg with fat layer exposed; M86.171 Other acute osteomyelitis, right ankle and foot; E11.42 Type 2 diabetes mellitus with diabetic polyneuropathy; R60.0 Localized edema; L84 Corns and callosities | CPT/HCPCS: 11042; 97605 ==

== ENCOUNTER → 2024-11-15 11:33 | Outpatient (CLI) | payer MEDICARE, OTHER, SELFPAY | PROVIDERS: PCP Family Medicine; Referring Provider Podiatrist Foot & Ankle Surgery; Visit Provider Surgery | DX: E11.621 Type 2 diabetes mellitus with foot ulcer (principal); L97.512 Non-pressure chronic ulcer of other part of right foot with fat layer exposed; R60.0 Localized edema | CPT/HCPCS: 97605 ==

== ENCOUNTER → 2024-11-19 10:23 | Outpatient (CLI) | payer MEDICARE, SELFPAY | LOC: WC 10:24 | PROVIDERS: PCP Family Medicine; Referring Provider Podiatrist Foot & Ankle Surgery; Visit Provider Surgery | DX: E11.621 Type 2 diabetes mellitus with foot ulcer (principal); L97.512 Non-pressure chronic ulcer of other part of right foot with fat layer exposed; S90.422A Blister (nonthermal), left great toe, initial encounter | CPT/HCPCS: 11042; 97597; 97605 ==

== ENCOUNTER → 2024-11-23 10:34 | Outpatient (CLI) | payer MEDICARE, SELFPAY | LOC: WC 10:42 | PROVIDERS: PCP Family Medicine; Referring Provider Podiatrist Foot & Ankle Surgery; Visit Provider Physician Assistant | DX: E11.621 Type 2 diabetes mellitus with foot ulcer (principal); L97.512 Non-pressure chronic ulcer of other part of right foot with fat layer exposed; E11.628 Type 2 diabetes mellitus with other skin complications; S90.422A Blister (nonthermal), left great toe, initial encounter; R60.0 Localized edema | CPT/HCPCS: 97605 ==

== ENCOUNTER → 2024-12-03 10:24 | Outpatient (CLI) | payer MEDICARE, SELFPAY | LOC: WC 10:25 | PROVIDERS: PCP Family Medicine; Referring Provider Podiatrist Foot & Ankle Surgery; Visit Provider Surgery | DX: E11.621 Type 2 diabetes mellitus with foot ulcer (principal); E11.628 Type 2 diabetes mellitus with other skin complications; L97.512 Non-pressure chronic ulcer of other part of right foot with fat layer exposed; S90.422A Blister (nonthermal), left great toe, initial encounter; E11.42 Type 2 diabetes mellitus with diabetic polyneuropathy | CPT/HCPCS: 11042; 97605 ==

== ENCOUNTER → 2024-12-04 15:01 | Outpatient (CLI) | payer MEDICARE, SELFPAY | LOC: WC 15:19 | PROVIDERS: PCP Family Medicine; Referring Provider Podiatrist Foot & Ankle Surgery; Visit Provider Surgery | DX: E11.621 Type 2 diabetes mellitus with foot ulcer (principal); E11.628 Type 2 diabetes mellitus with other skin complications; L97.512 Non-pressure chronic ulcer of other part of right foot with fat layer exposed; S90.422A Blister (nonthermal), left great toe, initial encounter; R60.0 Localized edema | CPT/HCPCS: 97605 ==

== ENCOUNTER → 2024-12-06 10:58 | Outpatient (CLI) | payer MEDICARE, SELFPAY | LOC: WC 10:59 | PROVIDERS: PCP Family Medicine; Referring Provider Podiatrist Foot & Ankle Surgery; Visit Provider Surgery | DX: E11.621 Type 2 diabetes mellitus with foot ulcer (principal); L97.512 Non-pressure chronic ulcer of other part of right foot with fat layer exposed; S90.422A Blister (nonthermal), left great toe, initial encounter; L98.8 Other specified disorders of the skin and subcutaneous tissue; R60.0 Localized edema | CPT/HCPCS: 97605 ==

== ENCOUNTER → 2024-12-10 10:37 | Outpatient (CLI) | payer MEDICARE, SELFPAY | LOC: WC 10:38 | PROVIDERS: PCP Family Medicine; Referring Provider Surgery; Visit Provider Surgery | DX: E11.621 Type 2 diabetes mellitus with foot ulcer (principal); L97.512 Non-pressure chronic ulcer of other part of right foot with fat layer exposed; L97.521 Non-pressure chronic ulcer of other part of left foot limited to breakdown of skin; L98.8 Other specified disorders of the skin and subcutaneous tissue; R60.0 Localized edema; I73.9 Peripheral vascular disease, unspecified; N18.6 End stage renal disease; Z99.2 Dependence on renal dialysis | CPT/HCPCS: 11042; 97597; 97605 ==

== ENCOUNTER → 2024-12-13 11:28 | Outpatient (CLI) | payer MEDICARE, SELFPAY | LOC: WC 11:29 | PROVIDERS: PCP Family Medicine; Referring Provider Podiatrist Foot & Ankle Surgery; Visit Provider Surgery | DX: E11.621 Type 2 diabetes mellitus with foot ulcer (principal); L97.512 Non-pressure chronic ulcer of other part of right foot with fat layer exposed; L98.8 Other specified disorders of the skin and subcutaneous tissue; R60.0 Localized edema; S90.422A Blister (nonthermal), left great toe, initial encounter | CPT/HCPCS: 97605 ==

== ENCOUNTER → 2024-12-17 11:45 | Outpatient (CLI) | payer MEDICARE, OTHER, SELFPAY | PROVIDERS: PCP Family Medicine; Referring Provider Podiatrist Foot & Ankle Surgery; Visit Provider Surgery | DX: E11.621 Type 2 diabetes mellitus with foot ulcer (principal); E11.628 Type 2 diabetes mellitus with other skin complications; L97.512 Non-pressure chronic ulcer of other part of right foot with fat layer exposed; S90.422A Blister (nonthermal), left great toe, initial encounter; I73.9 Peripheral vascular disease, unspecified; R60.0 Localized edema | CPT/HCPCS: 15275; Q4160 ==

== ENCOUNTER → 2024-12-21 11:24 | Outpatient (CLI) | payer MEDICARE, OTHER, SELFPAY | PROVIDERS: PCP Family Medicine; Referring Provider Family Medicine; Visit Provider Surgery | DX: E11.621 Type 2 diabetes mellitus with foot ulcer (principal); E11.628 Type 2 diabetes mellitus with other skin complications; L97.512 Non-pressure chronic ulcer of other part of right foot with fat layer exposed; S90.422A Blister (nonthermal), left great toe, initial encounter; R60.0 Localized edema | CPT/HCPCS: 97605 ==

== ENCOUNTER → 2024-12-24 11:41 | Outpatient (CLI) | payer MEDICARE, OTHER, SELFPAY | PROVIDERS: PCP Family Medicine; Referring Provider Podiatrist Foot & Ankle Surgery; Visit Provider Surgery | DX: E11.621 Type 2 diabetes mellitus with foot ulcer (principal); L97.512 Non-pressure chronic ulcer of other part of right foot with fat layer exposed; E11.42 Type 2 diabetes mellitus with diabetic polyneuropathy; I73.9 Peripheral vascular disease, unspecified; R60.0 Localized edema | CPT/HCPCS: 11042; 97605; 99213 ==

== ENCOUNTER → 2024-12-27 14:05 | Outpatient (CLI) | payer MEDICARE, OTHER, SELFPAY | PROVIDERS: PCP Family Medicine; Referring Provider Podiatrist Foot & Ankle Surgery; Visit Provider Surgery | DX: E11.621 Type 2 diabetes mellitus with foot ulcer (principal); L97.512 Non-pressure chronic ulcer of other part of right foot with fat layer exposed; R60.0 Localized edema | CPT/HCPCS: 97605 ==

== ENCOUNTER → 2024-12-31 11:07 | Outpatient (CLI) | payer MEDICARE, OTHER, SELFPAY | PROVIDERS: PCP Family Medicine; Referring Provider Podiatrist Foot & Ankle Surgery; Visit Provider Surgery | DX: E11.621 Type 2 diabetes mellitus with foot ulcer (principal); L97.512 Non-pressure chronic ulcer of other part of right foot with fat layer exposed; I73.9 Peripheral vascular disease, unspecified; R60.0 Localized edema; I27.0 Primary pulmonary hypertension; E11.40 Type 2 diabetes mellitus with diabetic neuropathy, unspecified | CPT/HCPCS: 11042; 99212 ==

== ENCOUNTER → 2025-01-07 10:37 | Outpatient (CLI) | payer MEDICARE, OTHER, SELFPAY | PROVIDERS: PCP Family Medicine; Referring Provider Family Medicine; Visit Provider Surgery | DX: E11.621 Type 2 diabetes mellitus with foot ulcer (principal); L97.512 Non-pressure chronic ulcer of other part of right foot with fat layer exposed; I73.9 Peripheral vascular disease, unspecified; R60.0 Localized edema; Z99.2 Dependence on renal dialysis; E11.40 Type 2 diabetes mellitus with diabetic neuropathy, unspecified | CPT/HCPCS: 11042 ==

== ENCOUNTER 2025-01-09 11:47 | Emergency (ER) | payer MEDICARE, SELFPAY ==
[2025-01-09 11:52] VITALS: BP 144/76; PULSE 95; RESP 14; TEMP 36.5; O2SAT 96; BMI 27.8
--- NOTE | 2025-01-09 12:13 | EKG_ITS ---
[address] [id number] [address], [place] [address] Test Date: 2025-01-09 Pat Name: Margarita Carbajal Department: Room: Gender: Female Business Transformation Manager: SYLVIA : 1970 Requested By: Order Number: [id number] Reading MD: Raymond Alvarez MD Measurements Intervals [place] Rate: 92 P: -10 UT: 222 QRS: 103 QRSD: 104 T: 24 QT: 402 QTc: 497 Interpretive Statements Sinus rhythm with 1st degree AV block Low voltage QRS Possible Lateral infarct , age undetermined Electronically Signed On 01-10-2025 7:28:12 PDT by Raymond Alvarez MD
[2025-01-09 12:20] LABS: Add Manual Diff / Slide Review NO; Basophils Absolute Auto 100 /uL (0-100); Basophils Percent Auto 2.3 % (0-2); Eosinophils Absolute Auto 100 /uL (0-450); Eosinophils Percent Auto 1.4 % (2-4); Hemoglobin 14.3 g/dL (12.0-16.0); Lymphocytes Absolute Auto 700 /uL (1100-4500); Mean Corpuscular HGB Conc 33.2 % (30-36); Mean Corpuscular Volume 99.4 fL (80-100); Monocytes Absolute Auto 400 /uL (0-900); Monocytes Percent Auto 8.4 % (3-14); Neutrophils Absolute Auto 3800 /uL (1500-7000); Neutrophils Percent Auto 73.9 % (50-75); Platelet Count 119 X10^3/uL (150-400); Red Blood Cell Count 4.33 X10^6/uL (4.0-5.2); Red Cell Distribution Width 16.6 % (11.6-14.8); White Blood Cell Count 5.2 X10^3/uL (4.5-11.0)
[2025-01-09 12:27] LABS: Alanine Aminotransferase 18 IU/L (<35); Albumin 4.7 g/dL (3.5-5.0); Albumin Globulin Ratio 1.3 (1.0-2.8); Alkaline Phosphatase 116 U/L (38-126); Aspartate Aminotransferase 30 IU/L (14-36); BUN Creatinine Ratio 13.2 (6-22); Bilirubin Total 1.5 mg/dL (0.2-1.3); Blood Urea Nitrogen 41 mg/dL (7-17); Calcium 9.7 mg/dL (8.4-10.2); Carbon Dioxide 23 mmol/L (22-32); Chloride 97 mmol/L (98-107); Estimated Glomerular Filt Rate 17 mL/min (>60); Globulin 3.6 g/dL (1.7-4.1); Glucose 221 mg/dL (70-100); HEMOLYSIS < 15 (0-50); Lipase 59 U/L (23-300); Potassium 4.3 mmol/L (3.4-5.1); Sodium 135 mmol/L (137-145); Total Protein 8.3 g/dL (6.3-8.2)
--- NOTE | 2025-01-09 12:36 | ED_ITS ---
HPI - Abdominal Pain General Chief Complaint: Abdominal Pain Stated Complaint: stomach pain N/V Time Seen by Provider: 01/09/25 12:26 Source: patient Mode of arrival: Wheelchair History of Present Illness HPI narrative: Patient here for low abdominal pain and low back pain. Ongoing for 2 or 3 months she states. Mother at bedside. Patient is on dialysis. She does still make urine. No urinary complaints. No fever chills. 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 This is not new. Patient seen by an patient's disease and vandana for this in the past. No nausea or vomiting. No fever chills. Patient takes OxyContin for pain control. Can not had IV pain medication because it causes poor metabolism. Patient did take her OxyContin at 5:00 a.m. this morning. Does not want anything for pain at this time. Related Data Previous Rx's Medication Instructions Recorded ketorolac 10 mg tablet 10 mg PO Q6H PRN pain #10 tabs 07/22/19 lidocaine 5 % topical patch 1 patch topical DAILY #15 ea 07/22/19 doxycycline hyclate 100 mg tablet 100 mg PO BID #20 tabs 03/20/21 Allergies Allergy/AdvReac Type Severity Reaction Status Date / Time No Known Drug Allergies Allergy Verified 01/09/25 11:52 Review of Systems Review of Systems Narrative: GENERAL: Negative chills, fatigue, malaise, fever, sweats. HEENT: Negative sinus pain, ear pain, sore throat RESPIRATORY: Negative dyspnea, cough CARDIOVASCULAR: Negative chest pain, palpitations GASTROINTESTINAL: Negative vomiting, nausea, positive abdominal pain : Negative dysuria, frequency, hematuria MUSCULOSKELETAL: Negative muscle or bony pain SKIN: Negative rash, skin lesions NEUROLOGIC: Negative weakness, numbness ROS Unobtainable: All systems reviewed & are unremarkable except as noted in HPI and below Patient History Social History Smoking Status: Current every day smoker Smoking Status: Current every day smoker alcohol intake frequency: other Exam Narrative Exam Narrative: GENERAL: in no distress, not toxic not dyspneic HEAD: Normocephalic. EYES: Pupils equal round ENT: Mucous membranes moist. NECK: Trachea midline. CARDIOVASCULAR: Regular rate and rhythm RESPIRATORY: Clear to auscultation. Breath sounds equal bilaterally. No wheezes, rales, or rhonchi. GASTROINTESTINAL: Abdomen soft, bowel sounds are present. No peritoneal signs no guarding no rebound. There is mild bilateral low abdominal tenderness. No McBurney point tenderness. Patient moves in bed roll without any difficulty or pain. EXTREMITIES: No gross deformities. BACK: No flank tenderness. NEURO: AOx4. Clear speech SKIN: Warm and dry PSYCH: Not anxious, is cooperative Initial Vital Signs Initial Vital Signs: Vital Signs Temperature 97.7 F 01/09/25 11:52 Pulse Rate 95 H 01/09/25 11:52 Respiratory Rate 14 01/09/25 11:52 Blood Pressure 144/76 H 01/09/25 11:52 Pulse Oximetry 96 01/09/25 11:52 Oxygen Delivery Method Room Air 01/09/25 11:52 Course Orders Ordered: Discontinued Medications Ondansetron HCl (Ondansetron 4 Mg/2 Ml Inj) 4 mg IV NOW PRN PRN Reason: Nausea And Vomiting Ondansetron HCl (Ondansetron 4 Mg Odt) 4 mg PO NOW PRN PRN Reason: Nausea And Vomiting Oxycodone HCl (Oxycodone Er 10 Mg Tab) 10 mg PO NOW ONE Stop: 01/09/25 13:52 Last Admin: 01/09/25 13:58 Dose: 10 mg Documented By: CTS Vital Signs Vital signs: Vital Signs - 8 hr 01/09/25 11:52 01/09/25 13:16 01/09/25 13:30 Temperature 97.7 F Pulse Rate 95 H 84 83 Respiratory Rate 14 Blood Pressure 144/76 H Pulse Oximetry 96 97 98 Oxygen Delivery Method Room Air 01/09/25 13:30 Temperature Pulse Rate Respiratory Rate Blood Pressure 119/65 Pulse Oximetry Oxygen Delivery Method MDM - Abdominal Pain Lab Data 01/09/25 12:00 01/09/25 12:00 Labs: Lab Results 01/09/25 01/09/25 Range/Units 12:00 14:16 WBC 5.2 (4.5-11.0) X10^3/uL RBC 4.33 (4.0-5.2) X10^6/uL Hgb 14.3 (12.0-16.0) g/dL Hct 43.0 (36-46) % MCV 99.4 (80-100) fL MCH 33.0 (26-34) PG MCHC 33.2 (30-36) % RDW 16.6 H (11.6-14.8) % Plt Count 119 L (150-400) X10^3/uL Neut % (Auto) 73.9 (50-75) % Lymph % (Auto) 14.0 L (25-40) % Sutton % (Auto) 8.4 (3-14) % Eos % (Auto) 1.4 L (2-4) % Baso % (Auto) 2.3 H (0-2) % Neut # (Auto) 3800 (3744-6311) /uL Lymph # (Auto) 700 L (0326-5737) /uL Sutton # (Auto) 400 (0-900) /uL Eos # (Auto) 100 (0-450) /uL Baso # (Auto) 100 (0-100) /uL Sodium 135 L (137-145) mmol/L Potassium 4.3 (3.4-5.1) mmol/L Chloride 97 L (98-107) mmol/L Carbon Dioxide 23 (22-32) mmol/L BUN 41 H (7-17) mg/dL Creatinine 3.11 H (0.52-1.04) mg/dL Estimated GFR 17 L (>60) mL/min BUN/Creatinine Ratio 13.2 (6-22) Glucose 221 H (70-100) mg/dL Calcium 9.7 (8.4-10.2) mg/dL Total Bilirubin 1.5 H (0.2-1.3) mg/dL AST 30 (14-36) IU/L ALT 18 (<35) IU/L Alkaline Phosphatase 116 (38-126) U/L Total Protein 8.3 H (6.3-8.2) g/dL Albumin 4.7 (3.5-5.0) g/dL Globulin 3.6 (1.7-4.1) g/dL Albumin/Globulin Ratio 1.3 (1.0-2.8) Lipase 59 (23-300) U/L Urine Color Yellow Urine Appearance Clear Urine pH 7.0 (4.5-8.0) Ur Specific Nikolai 1.010 (1.000-1.035) Urine Protein 2+ H (Negative) Urine Glucose (UA) 2+ H (Negative) g/dL Urine Ketones Negative (NEGATIVE) Urine Occult Blood 1+ H (Negative) Urine Nitrate Negative (Negative) Urine Bilirubin Negative (NEGATIVE) Urine Urobilinogen 0.2 (0.2) E.U./dL Ur Leukocyte Esterase Negative (NEGATIVE) Urine RBC 1-5/hpf (0-5/HPF) Urine WBC 0-1/hpf (0-5/HPF) Ur Squamous Epith Cells 0-1 /hpf (0-5/HPF) Amorphous Sediment 2+ Urine Bacteria Occasional (0-1) (None) Ur Culture Indicated? Cult not indicated Vol Urine Centrifuged 10ml (spun) Point of care testing: Urine Dip Bedside Urine Glucose 100 mg/dl Bedside Urine Bilirubin - Negative Bedside Urine Ketone - Negative Urine Specific Nikolai 1.005 Bedside Urine Occult Blood + Bedside Urine pH 6.5 Bedside Urine Protein + 30 Bedside Urine Urobilinogen - Negative Bedside Urine Nitrite - Negative Bedside Urine Leukocytes - Negative Esterase Imaging Data CT scan - abdomen/pelvis: Radiologist's Impression: [address] [address] [address] Scan Report Signed Patient: Margarita Carbajal MR#: [id number] : 1970 Acct:[id number] Age/Sex: 54 / F Date of Service: 01/09/25 Loc: ED Accession Number: [id number] Procedure: CT abdomen pelvis wo con Ordering Provider: Ramirez Castellanos MD PROCEDURE: CT ABDOMEN PELVIS WO CON INDICATIONS: Low abdominal pain low back pain TECHNIQUE: Axial sections were acquired from the lung bases to the pubic symphysis. Coronal and sagittal reformats were performed. For radiation dose reduction, the following was used: automated exposure control, adjustment of mA and/or kV according to patient size. COMPARISON: [facility], CT, CT ANGIO ABD AORTA RUNOFF, 08/16/2024, 10:38. FINDINGS: Image quality: Diagnostic. Lower Chest: Bilateral lung bases are clear. Heart size is enlarged with three-vessel coronary artery atherosclerotic calcifications. Small pericardial effusion is seen measures up to 7 mm in thickness. URINARY: Right Kidney: Atrophic appearing right Kidney with extensive vascular calcifications and nonobstructing stones. No hydronephrosis. Right Ureter: No hydroureter. Left Kidney: Atrophic appearing left kidney with extensive vascular calcifications and nonobstructing stones. No hydronephrosis. Left Ureter: No hydroureter. 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 No gross solid appearing renal lesion. No obstructing stones or hydronephrosis. No hydroureter. Bladder: Normal wall thickness. No stones. ABDOMEN: Liver: No contour-deforming solid mass. Nodular liver contour is seen. Gallbladder: No radiopaque gallstones or wall thickening. Biliary ducts: No biliary dilation. Pancreas: No ductal dilation. Spleen: Size is within normal limits. Adrenal Glands: No adrenal nodules. Diffuse adrenal thickening. Stomach and Bowel: There is no bowel obstruction. No gross abnormal bowel wall thickening or mesenteric fat stranding. [id number] fecal stasis in the colon is seen. No abscess collection. Peritoneum: Small amount of ascites fluid is seen in abdomen and pelvis. No peritoneal free air. Ventral Wall: No hernia. Generalized anasarca is seen. Possible injection granuloma is seen in left anterior abdominal wall soft tissue. Abdominal Nodes: No enlarged retroperitoneal or mesenteric lymph nodes. Vessels: Aorta and inferior vena cava are normal in size. Moderate atherosclerotic calcifications are noted throughout abdominal aorta. PELVIS: Pelvic Organs: Unremarkable. Pelvic Nodes: Unremarkable. Miscellaneous: No inguinal hernias are seen. Bones: Sclerotic changes are noted involving L2 through L4 vertebral bodies with chronic appearing compression deformities not significantly changed from previous study. No other aggressive appearing bony lesions. IMPRESSION: 1. Small amount of ascites fluid. No peritoneal free air. Nodular liver contour concerning for cirrhosis. 2. Atrophic appearing bilateral [place] kidneys with transplant kidney seen in left lower quadrant. No hydronephrosis or gross solid appearing renal lesion. Normal appearing urinary bladder. 3. No bowel obstruction or abnormal bowel wall thickening. Mild constipation. No free fluid or free air. No abscess collection. 4. Small amount of pericardial effusion. Moderate to severe 3 vessel coronary artery atherosclerotic calcifications. Moderate atherosclerotic disease in abdominal aorta. No aortic aneurysm. 5. Generalized anasarca. Stable chronic appearing compression deformities and sclerotic changes involving L2 through L4 vertebral bodies. No new vertebral body compression fracture. Dictated by: Howard Bland M.D. on 01/09/2025 at 13:07 Approved by: Howard Bland M.D. on 01/09/2025 at 13:13 [facility] Narrative Medical decision making narrative: Patient here for low abdominal pain and low back pain. Ongoing for 2 or 3 months she states. Mother at bedside. Patient is on dialysis. She does still make urine. No urinary complaints. No fever chills. 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 This is not new. Patient seen by an patient's disease and vandana for this in the past. No nausea or vomiting. No fever chills. Patient takes OxyContin for pain control. Can not had IV pain medication because it causes poor metabolism. Patient did take her OxyContin at 5:00 a.m. this morning. Does not want anything for pain at this time. After history and exam, CBC CMP urinalysis CT abdomen pelvis [facility] Medical records reviewed: No recent visit for this complaint Differential considered: Includes but not limited to bowel obstruction colitis appendicitis cholelithiasis cholecystitis pancreatitis UTI Lab Test results independently reviewed as above. Pertinent findings: WBC 5.2 hemoglobin 14.3 sodium 135 potassium 4.3 BUN 41 creatinine 3.1 GFR 17, urinalysis negative leukocytes negative nitrate Independently reviewed EKG sinus rhythm rate [address] elevation or depression Imaging studies independently reviewed: CT abdomen pelvis no acute finding Consultations: None indicated this time Treatments: OxyContin Re-evaluations: 2:38 p.m.. Patient does not want to stay any longer. Results are in. Mother at bedside. Patient does not want to be observed any longer. No further testing. Return precautions reviewed. She desires discharge home. Patient was anxious to go home. Has been up and ambulating. Discussion: Appropriate for discharge home exam is reassuring. Laboratory studies appear to be at baseline. CT imaging reassuring.. Appropriate for outpatient workup for abdominal pain as this has been going on for 2 or 3 months. Referral for General surgery provided. She desires discharge home. Diagnosis: Abdominal pain Discharge Plan Departure Patient Disposition: Home Clinical Impression: Abdominal pain Qualifiers: Abdominal location: lower abdomen, unspecified Qualified Code(s): R10.30 - Lower abdominal pain, unspecified Instructions: DI for Abdominal Pain-Adult Activity Restrictions/Additional Instructions: Please see family doctor for re-evaluation this week. Continue home medications. No driving operating machinery today. You will need referral for endoscopy stomach and colonoscopy. You may call provided general surgery office to schedule as well. Return if worse if any questions or concerns. Prescriptions: No Action lidocaine 5 % adhesive patch,medicated 1 patch TOP DAILY Qty: 15 0RF Rx Instructions: leave on most painful area for up to 12 hrs ketorolac 10 mg tablet 10 mg PO Q6H PRN (Reason: pain) Qty: 10 0RF doxycycline hyclate 100 mg tablet 100 mg PO BID Qty: 20 0RF Referrals: Meagan Green MD [Primary Care Provider] - Eleazar Jose MD [Physician] - Stand Alone Forms: Patient Portal/API/Survey
[2025-01-09 13:16] VITALS: PULSE 84; O2SAT 97
[2025-01-09 13:30] VITALS: BP 119/65; PULSE 83; O2SAT 98
[2025-01-09] MEDS: OXYCODONE ER 10 MG TAB PO (13:58)
[2025-01-09 14:24] LABS: Appearance Urine UA CLEAR; Bilirubin Urine UA NEGATIVE (NEGATIVE); Color Urine UA YELLOW; Glucose Urine UA 2+ g/dL (Negative); Ketones Urine UA NEGATIVE (NEGATIVE); Leukocyte Esterase Urine UA NEGATIVE (NEGATIVE); Nitrite Urine UA NEGATIVE (Negative); Occult Blood Urine UA 1+ (Negative); Protein Urine UA 2+ (Negative); Urobilinogen Urine UA 0.2 E.U./dL (0.2)
[2025-01-09 14:46] LABS: Amorphous Sediment Urine 2+; Bacteria Urine Occasional (0-1); Culture Indicated Urine Cult Not Indicated; RBC Urine 1-5/HPF (0-5/HPF); Squamous Epithelial Cell Urine 0-1 /HPF (0-5/HPF); Urine Volume 10mL (spun); WBC Urine 0-1/HPF (0-5/HPF)
== END 2025-01-09 14:39 | disposition home or self-care (01) ==
PROVIDERS: Emergency Provider Emergency Medicine; PCP Family Medicine
DX: R10.30 Lower abdominal pain, unspecified (principal); M54.50 Low back pain, unspecified; I44.0 Atrioventricular block, first degree
CPT/HCPCS: 36415; 74176; 80053; 81001; 81003; 83690; 85025; 93005; 99284

== ENCOUNTER → 2025-01-14 15:24 | Outpatient (CLI) | payer MEDICARE, OTHER, SELFPAY ==
--- NOTE | 2025-01-14 | OV.WND_ITS ---
PROGRESS NOTE DETAILS PATIENT NAME: MIGUEL LOZANO PATIENT NUMBER: [id number] CLINICIAN: ANA LAURA ROMERO RN PATIENT DATE OF : 1970 PHYSICIAN / LINING CLEANER: KEVINXU PATIENT SUBJECTIVE CHIEF COMPLAINT THIS INFORMATION WAS OBTAINED FROM THE PATIENT. RIGHT FOOT WOUND GENERAL NOTES DIABETIC ULCER RIGHT FOOT. ALLERGIES IBUPROFEN (SEVERITY: SEVERE), ATORVASTATIN (REACTION: ARTHRALGIA), MORPHINE, PETROLEUM JELLY (REACTION: PEELING SKIN AND SKIN IRRITATION) HPI THIS INFORMATION WAS OBTAINED FROM THE PATIENT. THE FOLLOWING HPI ELEMENTS WERE DOCUMENTED FOR THE PATIENT'S WOUND: LOCATION: R FOOT DURATION: 04/23/24 CONTEXT: DFU/ARTERIAL THE PATIENT IS A 54-YEAR-OLD FEMALE WITH DIABETES, ESRD ON HEMODIALYSIS, PULMONARY HYPERTENSION, AND CAD WHO RETURNS TODAY FOR FOLLOW UP OF DIABETIC ULCER OF THE RIGHT FOOT AND LEFT GREAT TOE. THE PATIENT IS RECEIVING DRESSING CHANGES WITH HYDROFERA BLUE TO THE DORSUM OF THE RIGHT FOOT. SHE HAS NOT NOTED ANY REDNESS OR SWELLING NOR HAS SHE HAD ANY FEVER OR CHILLS. THE PATIENT REPORTS A GOOD APPETITE AND GOOD CONTROL OF HER BLOOD SUGARS. SHE HAS NOT HAD ANY RECENT CHANGES IN HER OVERALL HEALTH. PAST HISTORY IS REMARKABLE FOR PREVIOUS LEFT 4TH AND 5TH METATARSAL RAY AMPUTATIONS AND MULTIPLE TOE AMPUTATIONS ON THE RIGHT. RECENT HEMOGLOBIN A1C WAS 6.5. PATIENT REMAINS ON KEFLEX FOR CHRONIC SPINE INFECTION. ON EXAM TODAY THE ULCER ON THE DORSUM OF THE RIGHT FOOT HAS STABLE MEASUREMENTS AND THE PERIWOUND SKIN LOOKS GOOD, NO SIGN OF INFECTION. THE PATIENT UNDERWENT ANGIOGRAPHY AND ANGIOPLASTY OF THE RIGHT LOWER EXTREMITY ON 09/19 AND REPORTS THAT THE PAIN IN HER FOOT IS MUCH IMPROVED. THE PATIENT WAS SEEN BY THE ID SERVICE WHO DID NOT FEEL THAT THERE WAS ACTIVE OSTEOMYELITIS THAT REQUIRED TREATMENT AT THIS TIME. THE PATIENT IS STILL SMOKING CIGARETTES. LABS: 08/16/24: CTA REVEALED MODERATE STENOSIS BILATERAL COMMON ILIAC ARTERIES, HIGH- GRADE STENOSIS DISTAL RIGHT COMMON FEMORAL ARTERY, HEAVILY CALCIFIED PLAQUE WITH HIGH-GRADE STENOSIS RIGHT ABOVE-KNEE POPLITEAL ARTERY, CALCIFIED PLAQUE THROUGHOUT TIBIAL ARTERIES 08/03/24: WBC 7.8, HEMOGLOBIN 10.3, HCT 30.5, ESR 73, ELECTROLYTES UNREMARKABLE, BUN 24, CREATININE 3.94, C-REACTIVE PROTEIN 8.1, LFTS NORMAL 08/01/24: BONE SCAN CONCERNING FOR OSTEOMYELITIS RIGHT 1ST TOE 07/12/24: ARTERIAL DOPPLER REVEALED: RIGHT LOWER EXTREMITY: 50-99% STENOSIS CATEGORY. SEVERELY DIMINISHED VELOCITIES IN THE FEMORAL ARTERY THROUGH THE POPLITEAL ARTERY WITH AREAS OF MONOPHASIC FLOW. LEFT LOWER EXTREMITY: SEVERELY DIMINISHED BLOOD FLOW IN THE PRODUCTION DIRECTOR WITH MONOPHASIC WAVEFORM. SUSPECT 50-99% STENOSIS CATEGORY. MIGUEL LOZANO [id number] 1970 06/27/24: X-RAY RIGHT FOOT SHOWED LIKELY OSTEOMYELITIS OF 1ST PROXIMAL PHALANX 06/27/24: X-RAY LEFT FOOT SHOWED NO RADIOGRAPHIC EVIDENCE OF OSTEOMYELITIS 06/19/24: CULTURE LEFT LEG GREW ENTEROCOCCUS FAECALIS MEDICAL HISTORY THIS INFORMATION WAS OBTAINED FROM THE CHART, PATIENT. 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, LIMITED TO BREAKDOWN OF SKIN CHRONIC OSTEOMYELITIS OF LUMBAR SPINE CKD STAGE 4 COPD EXACERBATION CORONARY ARTERY DISEASE DEPENDENCE ON RENAL DIALYSIS DEPRESSION DIABETIC GASTROPARESIS DIABETIC NEPHROPATHY DIABETIC RETINOPATHY DISCITIS OF LUMBAR REGION ESRD (END STAGE RENAL DISEASE) GANGRENE GLUTEN INTOLERANCE HEAVY PERIODS HEMODIALYSIS-ASSOCIATED WITH HYPOTENSION HISTORY OF AMPUTATION OF LESSER TOE HISTORY OF KIDNEY TRANSPLANT HYPERLIPIDEMIA HYPERTENSION HYPERVOLEMIA HYPONATREMIA IMMUNOSUPPRESSED DUE TO CHEMOTHERAPY ISCHEMIC CARDIOMYOPATHY LOWER LIMB ULCER, HEEL OR MIDFOOT MIGUEL LOZANO [id number] 1970 MAJOR DEPRESSIVE DISORDER METHICILLIN SUSCEPTIBLE STAPHYLOCOCCUS AUREUS INFECTION NSTEMI OSTEOMYELITIS POLYCYSTIC OVARY DISEASE PSORIASIS PYELONEPHRITIS SECONDARY HYPERPARATHYROIDISM SPINAL EPIDURAL ABSCESS SYSTOLIC HEART FAILURE VENOUS INSUFFICIENCY TYPE 2 DIABETES MELLITUS WITH CHRONIC KIDNEY DISEASE ON CHRONIC DIALYSIS WITHOUT LONG-TERM CURRENT USE OF INSULIN ULCER OF LEFT FOOT SURGICAL HISTORY THIS INFORMATION WAS OBTAINED FROM THE CHART, PATIENT. PATIENT HAS A SURGICAL HISTORY OF: AV FISTULA PLACEMENT- RENAL TRANSPLANT- (2014) AMPUTATION OF RIGHT 2,3,4 TOES- RAY AMPUTATION OF LEFT 4TH AND 5TH TOES- OBJECTIVE VITALS HEIGHT/LENGTH: 65 IN (165.1 CM), WEIGHT: 174.8 LBS (79.45 KGS), BMI: 29.1, TEMPERATURE: 97.5 ?F (36.39 ?C), PULSE: 85 BPM, RESPIRATORY RATE: 18 BREATHS/MIN, BLOOD PRESSURE: 139/84 MMHG, PULSE OXIMETRY: 100 %. PHYSICAL EXAM CONSTITUTIONAL: VITAL SIGNS REVIEWED AND NOTED. WELL DEVELOPED, WELL NOURISHED, AND IN NO ACUTE DISTRESS. ALERT AND ORIENTED X3. RESPIRATORY: EVEN RESPIRATIONS WITHOUT USE OF ACCESSORY MUSCLES. NO INTERCOASTAL RETRACTIONS NOTED. EVEN AND NON LABORED RESPIRATION. INTEGUMENTARY (HAIR, SKIN): RUBOR, MULTIPLE AMPUTATIONS. NO SWELLING OR TENDERNESS. SEE WOUND ASSESSMENT. SKIN WARM AND DRY. NO RASHES. NEUROLOGICAL: DECREASED LOWER EXTREMITY SENSATION. PSYCHIATRIC: ORIENTATION TO TIME, PLACE AND PERSON: NORMAL AFFECT WITH NORMAL THOUGHT PATTERN. ADDITIONAL INFORMATION THE PATIENT'S POTENTIAL TO HEAL IS: FAIR. WOUND ASSESSMENT(S) WOUND #5 RIGHT, DORSAL FOOT IS A CHRONIC JONAS GRADE 2 DIABETIC ULCER ACQUIRED ON 04/23/2024 AND HAS RECEIVED A STATUS OF NOT HEALED. INITIAL WOUND ENCOUNTER MEASUREMENTS ARE 2CM LENGTH X 1.4CM MIGUEL LOZANO [id number] 1970 WIDTH X 0.2 CM DEPTH, WITH AN AREA OF 2.8 SQ CM AND A VOLUME OF 0.56 CUBIC CM.INITIAL WOUND ENCOUNTER PREVIOUS MEASUREMENTS FROM 01/07/2025 ARE 2CM LENGTH X 1.3CM WIDTH X 0.2CM DEPTH, WITH AN AREA OF 2.6 SQ CM AND A VOLUME OF 0.52 CUBIC CM. ADIPOSE IS EXPOSED. NO TUNNELING HAS BEEN NOTED. NO SINUS TRACT HAS BEEN NOTED. NO UNDERMINING HAS BEEN NOTED. THERE IS A MODERATE AMOUNT OF SEROSANGUINEOUS DRAINAGE NOTED WHICH HAS NO ODOR. THE PATIENT REPORTS A WOUND PAIN OF LEVEL 0/10. THE WOUND MARGIN IS UNATTACHED WOUND BED HAS YES, BRIGHT RED, FIRM, GRANULATION, YES SLOUGH, NO ESCHAR, NO EPITHELIALIZATION. THE PERIWOUND SKIN EXHIBITED EDEMA. THE PERIWOUND SKIN DID NOT EXHIBIT BRAWNY INDURATION, EXCORIATION, INDURATION, CALLUS, CREPITUS, FLUCTUANCE, RASH, ATROPHIE STEFANIA, CYANOSIS, ECCHYMOSIS, ERYTHEMA, HEMOSIDEROSIS, PALLOR AND RUBOR. THE PERIWOUND SKIN WAS NOT FRIABLE. THE TEMPERATURE OF THE PERIWOUND SKIN IS COOL. PERIWOUND SKIN DOES NOT EXHIBIT SIGNS OR SYMPTOMS OF INFECTION. LOCAL PULSE IS DOPPLER. ADDITIONAL INFORMATION OTHER DEVITALIZED TISSUE PRESENT: BIOFILM CHINO/VASCULAR COMPLETED?: 06/19/24 RESULTS?: PAD ASSESSMENT ACTIVE PROBLEMS ICD-10 (ENCOUNTER DIAGNOSIS) L97.512 - NON-PRESSURE CHRONIC ULCER OF OTHER PART OF RIGHT FOOT WITH FAT LAYER EXPOSED (ENCOUNTER DIAGNOSIS) E11.621 - TYPE 2 DIABETES MELLITUS WITH FOOT ULCER (ENCOUNTER DIAGNOSIS) E11.622 - TYPE 2 DIABETES MELLITUS WITH OTHER SKIN ULCER (ENCOUNTER DIAGNOSIS) E11.42 - TYPE 2 DIABETES MELLITUS WITH DIABETIC POLYNEUROPATHY (ENCOUNTER DIAGNOSIS) I73.9 - PERIPHERAL VASCULAR DISEASE, UNSPECIFIED (ENCOUNTER DIAGNOSIS) I70.221 - ATHEROSCLEROSIS OF [place] ARTERIES OF EXTREMITIES WITH REST PAIN, RIGHT LEG GENERAL NOTES ULCER DORSUM RIGHT FOOT HAS STABLE MEASUREMENTS, PERIWOUND SKIN LOOKS GOOD THE FOLLOWING FACTORS HAVE BEEN IDENTIFIED THAT MAY AFFECT WOUND HEALING: DEVITALIZED TISSUE BIOFILM DIABETES INFECTION RENAL FAILURE PAD GOALS: REMOVE DEVITALIZED TISSUE REMOVE AND PREVENT BIOFILM IDENTIFY AND TREAT INFECTION ASSESS ARTERIAL CIRCULATION WOUND CLOSURE PLAN: DEBRIDEMENT, PLACEMENT OF PURAPLY. FOLLOW UP IN 1 WEEK FOR A RECHECK. PROCEDURES MIGUEL LOZANO [id number] 1970 WOUND #5 WOUND #5 (DIABETIC ULCER) IS LOCATED ON THE RIGHT, DORSAL FOOT. A SKIN/SUBCUTANEOUS TISSUE LEVEL SURGICAL DEBRIDEMENT WITH A TOTAL AREA DEBRIDED OF 3 SQ CM. WAS PERFORMED BY XU BROWN MD. DERMIS, EPIDERMIS AND SUBCUTANEOUS WERE REMOVED ALONG WITH DEVITALIZED TISSUE: BIOFILM, EXUDATE AND SLOUGH. THE FOLLOWING INSTRUMENT(S) WERE USED: CURETTE. PAIN CONTROL WAS ACHIEVED USING 5% LIDO. A TIME OUT WAS CONDUCTED PRIOR TO THE START OF THE PROCEDURE. A MODERATE AMOUNT OF BLEEDING WAS CONTROLLED WITH SILVER NITRATE. THE PROCEDURE WAS TOLERATED WELL WITH A PAIN LEVEL OF 0 THROUGHOUT AND A PAIN LEVEL OF 0 FOLLOWING THE PROCEDURE. POST DEBRIDEMENT MEASUREMENTS: 2CM LENGTH X 1.5CM WIDTH X 0.3CM DEPTH; WITH AN AREA OF 3 SQ CM AND A VOLUME OF 0.9 CUBIC CM. ADDITIONAL INFORMATION MUSCLE FASCIA OR BONE REMOVED AND SENT TO PATHOLOGY?: NO WOUND #5 (DIABETIC ULCER) IS LOCATED ON THE RIGHT, DORSAL FOOT. A SKIN SUBSTITUTE PROCEDURE WAS PERFORMED USING PURAPLY AM 2X2 BY XU BROWN MD WITH AN APPLICATION AREA OF 2.8 SQ CM. THE LOT # WAS [id number] AND THE ORDER # WAS [id number]. THE PRODUCT EXPIRATION DATE WAS 01/06/2026. THE PRODUCT WAS NOT FENESTRATED. 1.2 SQ CM OF PRODUCT WAS WASTED DUE TO WOUND SIZE SMALLER THAN DRESSING. 2.8 SQ CM OF PRODUCT WAS UTILIZED AND WAS SECURED WITH STERI-STRIPS. POST APPLICATION, A DRESSING WAS APPLIED: AQUACEL, ADAPTIC TOUCH, STERISTRIPS. A TIME OUT WAS CONDUCTED PRIOR TO THE START OF THE PROCEDURE. THE PROCEDURE WAS TOLERATED WELL WITH A PAIN LEVEL OF 0 THROUGHOUT AND A PAIN LEVEL OF 0 FOLLOWING THE PROCEDURE. ADDITIONAL INFORMATION THE WOUND HAS FAILED TO RESPOND TO CONSERVATIVE MEASURES, DEFINED LESS THAN 50% REDUCTION IN WOUND SURFACE AREA DURING 4 WEEK PERIOD OF CONSERVATIVE STANDARD CARE.: YES STANDARD OF CARE COMPLETED OVER THE PRIOR 4 WEEKS INCLUDES:: SHARP DEBRIDEMENT, VASCULAR ASSESSMENT AND TESTING, MANAGEMENT OF EXUDATE, INFECTION CONTROL, OPTIMIZATION OF NUTRITIONAL STATUS, REVIEW OF CURRENT BLOOD GLUCOSE LEVELS/HEMOGLOBIN A1C (HBA1C)(DFU), OFFLOADING (DFU/PRESSURE), SMOKING CESSATION DOCUMENTATION OF SMOKING HISTORY, AND COUNSELLING ON THE EFFECT OF SMOKING ON WOUND HEALING. TREATMENT FOR SMOKING CESSATION AND OUTCOME OF COUNSELLING, IF APPLICABLE.: YES APPLICATION NUMBER:: 1 NORMAL SALINE LOT NUMBER: [id number] NORMAL SALINE EXPIRATION DATE: 07/24/2026 PRODUCT SELECTED IS APPROPRIATE FOR SIZE OF WOUND : YES IN ADDITION TO CAMP APPLICATIONS, THE WOUND CONTINUES TO BE TREATED ACCORDING TO THE STANDARD OF CARE, WHICH MAY INCLUDE BUT IS NOT LIMITED TO: SHARP DEBRIDEMENT, VASCULAR ASSESSMENT AND MONITORING , INFECTION CONTROL, MANAGEMENT OF EXUDATE, NUTRITIONAL STATUS OPTIMIZATION, BLOOD GLUCOSE LEVELS/HEMOGLOBIN A1C OPTIMIZATION (DFU), APPROPRIATE OFFLOADING (DFU/PRESSURE), SUSTAINED COMPRESSION (VLU), AND SMOKING CESSATION : YES FOR DFU OR PRESSURE INJURY, ASSESSMENT OF OFF-LOADING DEVICE OR USE OF APPROPRIATE FOOTWEAR OR PRESSURE REDISTRIBUTION SURFACES : YES PLAN WOUND ORDERS: WOUND #5 RIGHT, DORSAL FOOT HAND HYGIENE HAND HYGIENE - WASH HANDS BEFORE AND AFTER WOUND CARE. CALL THE WOUND CENTER AT [phone] IF YOU HAVE SIGNS OR SYMPTOMS OF INFECTION, FEVER CHILLS OR SHAKES, INCREASED DRAINAGE, INCREASED ODOR OR UNUSUAL REDNESS. AFTER WOUND CENTER HOURS PLEASE NOTIFY YOUR PCP OR GO TO THE EMERGENCY ROOM. CLEANSER CLEANSE WOUND WITH NORMAL SALINE MAY SHOWER, LEAVE WOUND DRESSING INTACT. COVER WOUND DRESSING WITH A WATERPROOF BARRIER. KEEP DRESSING DRY. NO BATHS PLEASE. PROCEDURE / ANESTHETIC 5% TOPICAL LIDOCAINE TO WOUND BED PRIOR TO PROCEDURE, IN CLINIC ONLY. MIGUEL LOZANO [id number] 1970 DRESSING ORDERS APPLY DRESSING(S) AND SECURE WITH: - PURAPLY AM 2X2 (#1 SKIN SUB APPLICATION). ALGINATE TO BOLSTER, ADAPTIC TOUCH AND STERISTRIPS TO SECURE. SECOND LAYER OF ALGINATE FOR MORE ABSORBENCY, THEN OPTIFOAM SECURED WITH SILICONE TAPE. DRESSING CHANGE FREQUENCY LEAVE DRESSING INTACT UNTIL YOUR NEXT WOUND CENTER APPOINTMENT. KEEP DRY. CHANGE DRESSING IF IT BECOMES SOILED OR WET. - CHANGE OUTER DRESSING ONLY, IF NEEDED. ADDITIONAL ORDERS: DIETARY TAKE VITAMIN C 1000MG BY MOUTH DAILY. TAKE ZINC 25MG BY MOUTH DAILY. INCREASE THE PROTEIN IN YOUR DIET. FOLLOW-UP APPOINTMENTS RETURN APPOINTMENT 1 WEEK - MONDAYS SCRIBING ATTESTATION I ATTEST, THE NURSE, THAT I SCRIBED THESE ORDERS FOR THE WOUND CARE PROVIDER. PROVIDER REVIEW AND ATTESTATION: REVIEWED AND EVALUATED LABS. REVIEWED HOSPITAL RECORDS. DISCUSSED THE PLAN OF CARE @ BEDSIDE WITH - THE PATIENT AND MOTHER I AGREE AND ATTEST TO THE ABOVE INFORMATION PROVIDED FROM OTHER LICENSED PROFESSIONALS. PLAN OF CARE: 01. ENSURE/ESTABLISH OPTIMAL BLOOD FLOW : - COMPLETE LOWER EXTREMITY ASSESSMENT STATUS: CONTINUED DATE: 12/24/2024 - PERFORM NON-INVASIVE VASCULAR TESTING (I.E. CHINO) AND DOCUMENT FINDINGS. CONSIDER REPEATING WHEN WOUND HEALING <40% AFTER 30 DAYS OF WOUND CARE. STATUS: COMPLETED DATE: 06/27/2024 - ORDER VASCULAR CONSULT FOR EVALUATION/TREATMENT AND/OR NON-INVASIVE VASCULAR TESTING. STATUS: COMPLETED DATE: 08/08/2024 02. ASSESS FOR/TREAT INFECTION : - EVALUATE FOR SIGNS AND SYMPTOMS OF INFECTION AND DOCUMENT FINDINGS. STATUS: CONTINUED DATE: 12/24/2024 03. DEBRIDE WEEKLY OR MORE OFTEN PRN : - EVALUATE PATIENT IN CENTER WEEKLY TO ASSESS WOUND BED AND MARGINS FOR NEED FOR DEBRIDEMENT. STATUS: CONTINUED DATE: 12/24/2024 - DEBRIDEMENT BY ANY METHOD TO REMOVE DEVITALIZED/NECROTIC TISSUE TO PROMOTE HEALING AND PREVENT FURTHER COMPLICATIONS. GOAL IS TO STIMULATE AND/OR MAINTAIN ACUTE PHASE OF WOUND HEALING BY REDUCING BACTERIAL BURDEN AND DEVITALIZED/NON-VIABLE TISSUE. STATUS: CONTINUED DATE: 12/24/2024 04. OPTIMIZE GLUCOSE CONTROL AND NUTRITION : - ORDER/REVIEW PERTINENT LABS TO EVALUATE RENAL FUNCTION, GLUCOSE CONTROL, AND NUTRITIONAL STATUS. STATUS: CONTINUED DATE: 12/24/2024 - COMPLETE A NUTRITION RISK ASSESSMENT. STATUS: COMPLETED DATE: 06/19/2024 05. OFFLOADING PLAN : - EVALUATE PLAN FOR OFFLOADING STATUS: CONTINUED DATE: 12/24/2024 - ASSESS TOLERANCE AND COMPLIANCE OF OFFLOADING. STATUS: CONTINUED DATE: 12/24/2024 06. OPTIMIZE HOST FACTORS: - ASSESS AND REVIEW PATIENT HISTORY FOR WOUND ETIOLOGY, CO-MORBID CONDITIONS, MEDICATION REGIME, AND MIGUEL LOZANO [id number] 1970 SMOKING HISTORY. STATUS: COMPLETED DATE: 08/29/2024 - ASSESS LIFESTYLE FACTORS SUCH SMOKING, ALCOHOL/DRUG ABUSE, EATING HABITS/MALNUTRITION AND ACTIVITY LEVEL. STATUS: CONTINUED DATE: 12/24/2024 07. DRESSING SELECTION : - EVALUATE FOR DRESSING-RELATED FACTORS, SUCH AVAILABILITY, WEAR TIME, ADAPTABILITY AND USE TO BETTER OPTIMIZE WOUND HEALING AND PATIENT COMPLIANCE. STATUS: CONTINUED DATE: 12/24/2024 - CHOOSE TOPICAL TREATMENTS AND/OR DRESSING BASED ON WOUND TYPE AND APPEARANCE, PERIWOUND SKIN CONDITION, WOUND SIZE AND DEPTH, ANATOMIC LOCATION, VOLUME OF EXUDATE, EDEMA IN THE LOWER EXTREMITIES, AND RISK OR PRESENCE OF INFECTION. STATUS: CONTINUED DATE: 12/24/2024 08. ADVANCED MODALITIES : - SET TREATMENT GOALS ACCORDING TO PATIENT AND/OR CAREGIVER?S ABILITY/ COMPLIANCE. STATUS: CONTINUED DATE: 12/24/2024 - RE-EVALUATE PLAN OF CARE IF NO EVIDENCE OF HEALING (40% IN 4 WEEKS). STATUS: CONTINUED DATE: 12/24/2024 09. FALL PREVENTION : - COMPLETE FALL ASSESSMENT. STATUS: CONTINUED DATE: 12/24/2024 10. PAIN MANAGEMENT : - COMPLETE PAIN ASSESSMENT STATUS: CONTINUED DATE: 12/24/2024 11. MEASURABLE GOALS FOR WOUND HEALING AND/OR HYPERBARIC OXYGEN THERAPY : - DECREASE WOUND DIMENSIONS STATUS: CONTINUED DATE: 12/24/2024 - IMPLEMENT PROTOCOLS TO PROMOTE HEALING AND IMPEDE FURTHER INJURY STATUS: CONTINUED DATE: 12/24/2024 12. DURATION/FREQUENCY OF WOUND CARE VISITS : - 1X WEEKLY FOR 30 DAYS STATUS: CONTINUED DATE: 11/26/2024 ELECTRONIC SIGNATURE(S) SIGNED BY: DATE: XU BROWN MD 01/14/2025 15:58:23 (PT) ENTERED BY: XU BROWN MD ON 01/14/2025 13:07:15 (PT) MIGUEL LOZANO [id number] 1970
== END ==
PROVIDERS: PCP Family Medicine; Referring Provider Family Medicine; Visit Provider Surgery
DX: E11.621 Type 2 diabetes mellitus with foot ulcer (principal); L97.512 Non-pressure chronic ulcer of other part of right foot with fat layer exposed; I73.9 Peripheral vascular disease, unspecified; R60.0 Localized edema; E11.40 Type 2 diabetes mellitus with diabetic neuropathy, unspecified
CPT/HCPCS: 15275; Q4196

== ENCOUNTER → 2025-01-21 10:28 | Outpatient (CLI) | payer MEDICARE, OTHER, SELFPAY | PROVIDERS: PCP Family Medicine; Referring Provider Family Medicine; Visit Provider Surgery | DX: E11.621 Type 2 diabetes mellitus with foot ulcer (principal); L97.512 Non-pressure chronic ulcer of other part of right foot with fat layer exposed; L97.522 Non-pressure chronic ulcer of other part of left foot with fat layer exposed; R60.0 Localized edema | CPT/HCPCS: 11042; 99213 ==

== ENCOUNTER → 2025-01-28 10:59 | Outpatient (CLI) | payer MEDICARE, OTHER, SELFPAY | LOC: WC 03-11 11:01 | PROVIDERS: PCP Family Medicine; Referring Provider Family Medicine; Visit Provider Surgery | DX: E11.621 Type 2 diabetes mellitus with foot ulcer (principal); L97.512 Non-pressure chronic ulcer of other part of right foot with fat layer exposed; L97.522 Non-pressure chronic ulcer of other part of left foot with fat layer exposed; R60.0 Localized edema | CPT/HCPCS: 99213 ==

== ENCOUNTER → 2025-02-04 10:34 | Outpatient (CLI) | payer MEDICARE, OTHER, SELFPAY | PROVIDERS: PCP Family Medicine; Referring Provider Family Medicine; Visit Provider Surgery | DX: E11.621 Type 2 diabetes mellitus with foot ulcer (principal); L97.512 Non-pressure chronic ulcer of other part of right foot with fat layer exposed; R60.0 Localized edema | CPT/HCPCS: 11042 ==

== ENCOUNTER → 2025-02-11 10:51 | Outpatient (CLI) | payer MEDICARE, OTHER, SELFPAY | PROVIDERS: PCP Family Medicine; Referring Provider Family Medicine; Visit Provider Surgery | DX: E11.621 Type 2 diabetes mellitus with foot ulcer (principal); E11.622 Type 2 diabetes mellitus with other skin ulcer; L97.512 Non-pressure chronic ulcer of other part of right foot with fat layer exposed; E11.42 Type 2 diabetes mellitus with diabetic polyneuropathy; I73.9 Peripheral vascular disease, unspecified; I70.221 Atherosclerosis of native arteries of extremities with rest pain, right leg; R60.0 Localized edema; E11.22 Type 2 diabetes mellitus with diabetic chronic kidney disease; Z99.2 Dependence on renal dialysis; N18.6 End stage renal disease | CPT/HCPCS: 11042 ==

== ENCOUNTER → 2025-02-18 10:53 | Outpatient (CLI) | payer MEDICARE, OTHER, SELFPAY | PROVIDERS: PCP Family Medicine; Referring Provider Family Medicine; Visit Provider Surgery | DX: E11.621 Type 2 diabetes mellitus with foot ulcer (principal); L97.512 Non-pressure chronic ulcer of other part of right foot with fat layer exposed; E11.42 Type 2 diabetes mellitus with diabetic polyneuropathy; I73.9 Peripheral vascular disease, unspecified; R60.0 Localized edema; F17.210 Nicotine dependence, cigarettes, uncomplicated | CPT/HCPCS: 11042; 99213 ==

== ENCOUNTER → 2025-02-25 10:13 | Outpatient (CLI) | payer MEDICARE, OTHER, SELFPAY | PROVIDERS: PCP Family Medicine; Referring Provider Family Medicine; Visit Provider Surgery | DX: E11.621 Type 2 diabetes mellitus with foot ulcer (principal); L97.512 Non-pressure chronic ulcer of other part of right foot with fat layer exposed; I73.9 Peripheral vascular disease, unspecified; L98.8 Other specified disorders of the skin and subcutaneous tissue | CPT/HCPCS: 11042 ==

== ENCOUNTER → 2025-03-04 15:21 | Outpatient (CLI) | payer MEDICARE, OTHER, SELFPAY | LOC: WC 15:25 | PROVIDERS: PCP Family Medicine; Referring Provider Family Medicine; Visit Provider Surgery | DX: E11.621 Type 2 diabetes mellitus with foot ulcer (principal); E11.42 Type 2 diabetes mellitus with diabetic polyneuropathy; L97.512 Non-pressure chronic ulcer of other part of right foot with fat layer exposed; I73.9 Peripheral vascular disease, unspecified; R60.0 Localized edema; F17.210 Nicotine dependence, cigarettes, uncomplicated | CPT/HCPCS: 11042; 87070; 87075; 87077; 87186; 87205 ==

== ENCOUNTER 2025-03-11 09:53 | Emergency (ER) | payer MEDICARE, OTHER, SELFPAY ==
[2025-03-11] VITALS (33 sets, daily range): BP systolic 104–171; BP diastolic 56–95; PULSE 44–151; RESP 12–38; TEMP 36.8; O2SAT 84–100; BMI 26.8
--- NOTE | 2025-03-11 10:52 | DI.RAD.S_ITS ---
PROCEDURE: XR CHEST 1V INDICATIONS: headache TECHNIQUE: One view of the chest was acquired. COMPARISON: [facility], CT, CT LUMBAR SPINE WO CON, 03/11/2025, 11:33. [facility], CR, XR CHEST 1 VIEW, 02/03/2022, 10:18. [facility], CR, XR CHEST 1 VIEW, 10/20/2023, 14:30. FINDINGS: Surgical changes and devices: None. Lungs and pleura: Poorly defined opacity can be seen at the right lung base. Low lung volumes are noted. This causes a crowded appearance to the lung markings and limits evaluation. No pneumothorax or pleural effusions are seen. Generalized interstitial prominence can be seen. Mediastinum: Mediastinal contours appear normal. Heart size is moderately enlarged. Bones and chest wall: No suspicious bony lesions. Overlying soft tissues appear unremarkable. IMPRESSION: Cardiomegaly with generalized interstitial prominence. Please consider CHF. On this image, there is apparent superimposed infiltrate at the right lung base. However, differential diagnosis includes atelectasis. If clinically appropriate, a short-term followup chest series (with PA and lateral views) performed in deep inspiration is suggested for further evaluation. Dictated by: Brendan Holt M.D. on 03/11/2025 at 11:09 Approved by: Brendan Holt M.D. on 03/11/2025 at 11:10
--- NOTE | 2025-03-11 10:52 | DI.CT.S_ITS ---
PROCEDURE: CT LUMBAR SPINE WO CON INDICATIONS: back pain history of spine infection TECHNIQUE: Noncontrast 3 mm thick sections acquired from the T12 level to the sacrum. Sagittal and coronal reformats were constructed. For radiation dose reduction, the following was used: automated exposure control. COMPARISON: [facility], MR, MR LUMBAR SPINE WITHOUT CONTRAST, 02/21/2020, 8:47. [facility], CT, CT HEAD/BRAIN WO CON, 03/11/2025, 11:33. [facility], CR, XR CHEST 1V, 03/11/2025, 10:56. [facility], CT, CT ABDOMEN PELVIS WO CON, 01/09/2025, 12:54. FINDINGS: Image quality: This examination is limited by involuntary motion artifact. Bones: There is normal bony alignment. No suspicious lytic or blastic bony lesions. No pars defects. Significant carotid fractures can be seen involving L2, L3, and L4. Mild chronic fracture can be seen involving L5. No new fracture can be seen. No new area of bony lysis or periosteal reaction can be seen. Multifocal degenerative changes are seen, which are similar to the prior CT. A degree of vertebral body fusion can be seen at the T9-T10 level. Soft tissues: No retroperitoneal masses or hematomas. Visualized aorta is normal in caliber. Atherosclerotic calcification is noted. [place] kidneys are atrophic. IMPRESSION: Prior fractures can be seen, without acute fracture or findings of acute infection to the limits of this noncontrast CT study. If it would be helpful for clinical management decision making in this patient with this given history, please consider a dedicated, scheduled lumbar spine MRI (without and with contrast) for further evaluation (assuming that there is no contraindication). Additional findings: Atrophic [place] kidneys Dictated by: Brendan Holt M.D. on 03/11/2025 at 11:13 Approved by: Brendan Holt M.D. on 03/11/2025 at 11:18
--- NOTE | 2025-03-11 10:52 | EKG_ITS ---
[place] [id number] [address] [place] [id number] Test Date: 2025-03-11 Pat Name: Margarita Carbajal Department: 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
--- NOTE | 2025-03-11 10:52 | DI.CT.S_ITS ---
PROCEDURE: CT HEAD/BRAIN WO CON INDICATIONS: headache TECHNIQUE: Noncontrast 4.5 mm thick angled axial sections acquired from the foramen magnum to the vertex, with coronal and sagittal reformats. For radiation dose reduction, the following was used: automated exposure control, adjustment of mA and/or kV according to patient size. COMPARISON: [facility], MR, MR BRAIN (IAC) WWO CON, 03/10/2021, 13:46. [facility], CR, XR CHEST 1V, 03/11/2025, 10:56. [facility], CT, CT LUMBAR SPINE WO CON, 03/11/2025, 11:33. [facility], CT, CT ANGIO HEAD AND NECK, 02/03/2022, 13:19. FINDINGS: Image quality: There is artifact associated with the metallic earring. CSF spaces: Basal cisterns are patent. No extra-axial fluid collections. Ventricles are normal in size and shape. Brain: No midline shift. No intracranial mass effect or hemorrhage. Law-white matter interface is normal. Skull and face: Calvarium and visualized facial bones are intact, without suspicious lesions. Sinuses: Visualized sinuses and mastoids are clear. IMPRESSION: Unremarkable intracranial study, without an imaging explanation found for the patient's presenting history of headache. To the limits of this noncontrast study, no findings of intracranial masses or mass effect can be seen. Dictated by: Brendan Holt M.D. on 03/11/2025 at 11:11 Approved by: Brendan Holt M.D. on 03/11/2025 at 11:13
--- NOTE | 2025-03-11 10:56 | ED.HA ---
HPI - Headache <Cruzito Goetz MD - Last Filed: 03/11/25 20:14> General Chief Complaint: Headache Stated Complaint: Bad headache for days; confused and disassociated Time Seen by Provider: 03/11/25 10:39 Mode of arrival: Wheelchair History of Present Illness HPI Narrative: Your is a 55-year-old female brought in by her mother with concerns about headache confusion and multiple painful complaints. Increased symptoms for about 5 days. Not associated with fevers she has a chronic cough. Patient has end-stage renal disease and dialyzed last 6 days ago, this is her schedule she dialyzes only weekly at this point Dr. Teran is her primary care provider. Has not had any dysuria or frequency. No changes in bowel habits. No vomiting. 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 Is followed by infectious disease at [place] for this Dr's name may be [facility] Related Data Previous Rx's Medication Instructions Recorded ketorolac 10 mg tablet 10 mg PO Q6H PRN pain #10 tabs 07/22/19 lidocaine 5 % topical patch 1 patch topical DAILY #15 ea 07/22/19 doxycycline hyclate 100 mg tablet 100 mg PO BID #20 tabs 03/20/21 Allergies Allergy/AdvReac Type Severity Reaction Status Date / Time NSAIDS (Non-Steroidal Allergy Verified 03/11/25 10:15 Anti-Inflamma Patient History <Cruzito Goetz MD - Last Filed: 03/11/25 20:14> Social History Smoking Status: Current every day smoker Smoking Status: Current every day smoker alcohol intake frequency: other Exam <Cruzito Goetz MD - Last Filed: 03/11/25 20:14> Narrative Exam Narrative: ill-appearing female. Initial Vital Signs Initial Vital Signs: Vital Signs Temperature 98.2 F 03/11/25 10:08 Pulse Rate 112 H 03/11/25 10:08 Respiratory Rate 14 03/11/25 10:08 Blood Pressure 141/81 H 03/11/25 10:08 Pulse Oximetry 98 03/11/25 10:08 Oxygen Delivery Method Room Air 03/11/25 10:08 Normotensive and tachycardic [facility] Other: normocephalic atraumatic pupils equal and reactive extraocular move Neck Other: neck is supple no cervical adenopathy Resp Other: tachypneic, scattered rhonchi and wheezes. Appears dyspneic Cardio Other: tachycardic no murmur rub or gallop GI Other: normal bowel sounds soft and nontender Back/Spine/Pelvis Other: lumbar spine deformity at the upper lumbar spine, no focal tenderness Skin Other: warm and dry, no rash Neuro Other: tends to drift off during interview, intermittently agitated Extrem Other: dialysis access in the left upper extremity pulse present Psych Other: anxious <Vickie Chase DO - Last Filed: 03/12/25 01:47> Initial Vital Signs Initial Vital Signs: Vital Signs Temperature 98.2 F 03/11/25 10:08 Pulse Rate 112 H 03/11/25 10:08 Respiratory Rate 14 03/11/25 10:08 Blood Pressure 141/81 H 03/11/25 10:08 Pulse Oximetry 98 03/11/25 10:08 Oxygen Delivery Method Room Air 03/11/25 10:08 Course <Cruzito Goetz MD - Last Filed: 03/11/25 20:14> Orders Ordered: ED Orders 03/11/25 19:54 BMP [Basic Metabolic Panel] Stat 03/11/25 20:40 High flow/High humidity nasal NOW Discontinued Medications Acetaminophen (Acetaminophen 325 Mg Tablet) 325 mg PO Q6H PRN PRN Reason: Fever/Mild Pain (1-3) Last Admin: 03/11/25 12:29 Dose: 325 mg Documented By: SHAHNAZ Albuterol/Ipratropium (Albuterol/Ipratropium 3 Ml Ampul) 3 ml INH NOW ONE Stop: 03/11/25 13:10 Last Admin: 03/11/25 13:33 Dose: 3 ml Documented By: JOE Haloperidol (Haloperidol 5 Mg/Ml Vial) 5 mg IV NOW ONE Stop: 03/11/25 13:12 Last Admin: 03/11/25 13:15 Dose: 2.5 mg Documented By: SHAHNAZ Piperacillin Sod/Tazobactam (Sod 4.5 gm/ Sodium Chloride) 100 mls @ 200 mls/hr IV NOW ONE Stop: 03/11/25 12:53 Last Infusion: 03/11/25 13:57 Dose: Infused Documented By: Admin: 03/11/25 13:16 Dose: 200 mls/hr Documented By: RL Sodium Chloride (Normal Saline 0.9%) 1,000 mls @ 1,000 mls/hr IV BOLUS ONE Stop: 03/11/25 14:07 Last Infusion: 03/11/25 16:47 Dose: Infused Documented By: Admin: 03/11/25 15:35 Dose: 1,000 mls/hr Documented By: RL Vancomycin HCl/Dextrose (Vancomycin) 1,500 mg in 300 mls @ 200 mls/hr IV NOW ONE Stop: 03/11/25 14:44 Last Infusion: 03/11/25 15:35 Dose: Infused Documented By: Admin: 03/11/25 13:54 Dose: 200 mls/hr Documented By: RL Acetaminophen (Ofirmev) 1,000 mg in 100 mls @ 400 mls/hr IV NOW ONE Stop: 03/11/25 16:45 Last Infusion: 03/11/25 17:02 Dose: Infused Documented By: Admin: 03/11/25 16:35 Dose: 400 mls/hr Documented By: BS Piperacillin Sod/Tazobactam (Sod 3.375 gm/ Sodium Chloride) 100 mls @ 25 mls/hr IV Q8H GIFTY Last Admin: 03/11/25 20:43 Dose: 25 mls/hr Documented By: RL Oxycodone HCl (Oxycodone Ir 5 Mg Tablet) 10 mg PO NOW ONE Stop: 03/11/25 12:21 Last Admin: 03/11/25 12:28 Dose: 10 mg Documented By: RL Vancomycin HCl (Vancomycin Per Pharmacy) 1 request MISC NOW PRN PRN Reason: loading dose ESRD with pneumon Reevaluation(s) Reevaluation #1: Lab is reporting blood culture from today is positive for Gram-negative bacilli. Patient has received Zosyn already Consultations Consultation #1: patient was accepted by Dr. Maciel, [facility] hospitalist, waiting for bed assignment Vital Signs Vital signs: Vital Signs - 8 hr 03/11/25 18:00 03/11/25 18:00 03/11/25 18:30 Pulse Rate 111 H Respiratory Rate 36 H Blood Pressure 123/56 L 110/74 Pulse Oximetry 92 Oxygen Delivery Method Oxygen Flow Rate 03/11/25 18:30 03/11/25 19:00 03/11/25 19:03 Pulse Rate 112 H 105 H Respiratory Rate 29 H 23 Blood Pressure 114/56 L Pulse Oximetry 93 92 Oxygen Delivery Method Oxygen Flow Rate 03/11/25 19:03 03/11/25 19:30 03/11/25 19:30 Pulse Rate 108 H 111 H Respiratory Rate 23 20 Blood Pressure 117/68 Pulse Oximetry 95 97 Oxygen Delivery Method Oxygen Flow Rate 03/11/25 20:00 03/11/25 20:00 03/11/25 20:30 Pulse Rate 113 H Respiratory Rate 25 H Blood Pressure 140/59 L 145/65 H Pulse Oximetry 97 Oxygen Delivery Method Non -Rebreather Oxygen Flow Rate 15 03/11/25 20:30 03/11/25 20:53 03/11/25 21:00 Pulse Rate 109 H 106 H 109 H Respiratory Rate 24 26 H 20 Blood Pressure Pulse Oximetry 94 100 97 Oxygen Delivery Method Oxygen Flow Rate 03/11/25 21:00 03/11/25 21:01 03/11/25 21:01 Pulse Rate 110 H 109 H Respiratory Rate 16 21 Blood Pressure 130/86 127/59 L Pulse Oximetry 97 97 Oxygen Delivery Method High Flow Nasal Cannula Oxygen Flow Rate 50 03/11/25 21:30 03/11/25 21:30 Pulse Rate 110 H Respiratory Rate 26 H Blood Pressure 130/86 Pulse Oximetry 100 Oxygen Delivery Method Oxygen Flow Rate <Vickie Chase, - Last Filed: 03/12/25 01:47> Orders Ordered: ED Orders 03/11/25 19:54 BMP [Basic Metabolic Panel] Stat 03/11/25 20:40 High flow/High humidity nasal NOW Discontinued Medications Acetaminophen (Acetaminophen 325 Mg Tablet) 325 mg PO Q6H PRN PRN Reason: Fever/Mild Pain (1-3) Last Admin: 03/11/25 12:29 Dose: 325 mg Documented By: RL Albuterol/Ipratropium (Albuterol/Ipratropium 3 Ml Ampul) 3 ml INH NOW ONE Stop: 03/11/25 13:10 Last Admin: 03/11/25 13:33 Dose: 3 ml Documented By: TamaraZ Haloperidol (Haloperidol 5 Mg/Ml Vial) 5 mg IV NOW ONE Stop: 03/11/25 13:12 Last Admin: 03/11/25 13:15 Dose: 2.5 mg Documented By: RL Piperacillin Sod/Tazobactam (Sod 4.5 gm/ Sodium Chloride) 100 mls @ 200 mls/hr IV NOW ONE Stop: 03/11/25 12:53 Last Infusion: 03/11/25 13:57 Dose: Infused Documented By: Admin: 03/11/25 13:16 Dose: 200 mls/hr Documented By: RL Sodium Chloride (Normal Saline 0.9%) 1,000 mls @ 1,000 mls/hr IV BOLUS ONE Stop: 03/11/25 14:07 Last Infusion: 03/11/25 16:47 Dose: Infused Documented By: Admin: 03/11/25 15:35 Dose: 1,000 mls/hr Documented By: RL Vancomycin HCl/Dextrose (Vancomycin) 1,500 mg in 300 mls @ 200 mls/hr IV NOW ONE Stop: 03/11/25 14:44 Last Infusion: 03/11/25 15:35 Dose: Infused Documented By: Admin: 03/11/25 13:54 Dose: 200 mls/hr Documented By: RL Acetaminophen (Ofirmev) 1,000 mg in 100 mls @ 400 mls/hr IV NOW ONE Stop: 03/11/25 16:45 Last Infusion: 03/11/25 17:02 Dose: Infused Documented By: Admin: 03/11/25 16:35 Dose: 400 mls/hr Documented By: KAMERON Piperacillin Sod/Tazobactam (Sod 3.375 gm/ Sodium Chloride) 100 mls @ 25 mls/hr IV Q8H [facility] Last Admin: 03/11/25 20:43 Dose: 25 mls/hr Documented By: RL Oxycodone HCl (Oxycodone Ir 5 Mg Tablet) 10 mg PO NOW ONE Stop: 03/11/25 12:21 Last Admin: 03/11/25 12:28 Dose: 10 mg Documented By: SHAHNAZ Vancomycin HCl (Vancomycin Per Pharmacy) 1 request MISC NOW PRN PRN Reason: loading dose ESRD with pneumon Vital Signs Vital signs: Vital Signs - 8 hr 03/11/25 18:00 03/11/25 18:00 03/11/25 18:30 Pulse Rate 111 H Respiratory Rate 36 H Blood Pressure 123/56 L 110/74 Pulse Oximetry 92 Oxygen Delivery Method Oxygen Flow Rate 03/11/25 18:30 03/11/25 19:00 03/11/25 19:03 Pulse Rate 112 H 105 H Respiratory Rate 29 H 23 Blood Pressure 114/56 L Pulse Oximetry 93 92 Oxygen Delivery Method Oxygen Flow Rate 03/11/25 19:03 03/11/25 19:30 03/11/25 19:30 Pulse Rate 108 H 111 H Respiratory Rate 23 20 Blood Pressure 117/68 Pulse Oximetry 95 97 Oxygen Delivery Method Oxygen Flow Rate 03/11/25 20:00 03/11/25 20:00 03/11/25 20:30 Pulse Rate 113 H Respiratory Rate 25 H Blood Pressure 140/59 L 145/65 H Pulse Oximetry 97 Oxygen Delivery Method Non -Rebreather Oxygen Flow Rate 15 03/11/25 20:30 03/11/25 20:53 03/11/25 21:00 Pulse Rate 109 H 106 H 109 H Respiratory Rate 24 26 H 20 Blood Pressure Pulse Oximetry 94 100 97 Oxygen Delivery Method Oxygen Flow Rate 03/11/25 21:00 03/11/25 21:01 03/11/25 21:01 Pulse Rate 110 H 109 H Respiratory Rate 16 21 Blood Pressure 130/86 127/59 L Pulse Oximetry 97 97 Oxygen Delivery Method High Flow Nasal Cannula Oxygen Flow Rate 50 03/11/25 21:30 03/11/25 21:30 Pulse Rate 110 H Respiratory Rate 26 H Blood Pressure 130/86 Pulse Oximetry 100 Oxygen Delivery Method Oxygen Flow Rate MDM - Headache <Cruzito Goetz MD - Last Filed: 03/11/25 20:14> Lab Data Lab results narrative: CBC shows a white count of 13.4. Mild thrombocytopenia platelets are 101,000. expected elevation of BUN and creatinine with a normal potassium sodium is 126. Urinalysis does not suggest infection. Lactic acid is normal she recheck above, blood cultures are growing out Gram-negative rods while patient was in the emergency department 03/11/25 11:27 03/11/25 19:54 Labs: Lab Results 03/11/25 03/11/25 03/11/25 Range/Units 11:27 12:19 12:57 WBC 13.4 H (4.5-11.0) X10^3/uL RBC 4.80 (4.0-5.2) X10^6/uL Hgb 15.5 (12.0-16.0) g/dL Hct 46.6 H (36-46) % MCV 97.0 (80-100) fL MCH 32.3 (26-34) PG MCHC 33.3 (30-36) % RDW 17.3 H (11.6-14.8) % Plt Count 101 L (150-400) X10^3/uL Neut % (Auto) Not Reportable Lymph % (Auto) Not Reportable [place] % (Auto) Not Reportable Eos % (Auto) Not Reportable Baso % (Auto) Not Reportable Lymph # (Auto) Not Reportable [place] # (Auto) Not Reportable Baso # (Auto) Not Reportable Total Counted 100 Seg Neutrophils % 80.0 H (38-70) % Band Neutrophils % 18.0 H (3-7) % Lymphocytes % (Manual) 1.0 L (25-45) % Monocytes % (Manual) 1.0 L (2-11) % Neutrophils # (Manual) 75114 H (6544-0862) /uL Nucleated RBCs 1 H ( - 0) #/Diff RBC Morphology See below Anisocytosis 1+ H VBG pH (7.33-7.43) VBG pCO2 (45-50) mmHg VBG pO2 (35-45) mmHg VBG HCO3 (24-28) mmol/L VBG Total CO2 (24-29) mmol/L VBG O2 Saturation (70-75) % VBG Base Excess (0-4) mmol/L FiO2 % % Sodium 126 L (137-145) mmol/L Potassium 4.2 (3.4-5.1) mmol/L Chloride 91 L (98-107) mmol/L Carbon Dioxide 17 L (22-32) mmol/L BUN 109 H* (7-17) mg/dL Creatinine 3.34 H (0.52-1.04) mg/dL Estimated GFR 16 L (>60) mL/min BUN/Creatinine Ratio 32.6 H (6-22) Glucose 323 H (70-99) mg/dL Lactate 2.0 (0.7-2.1) mmol/L Calcium 10.2 (8.4-10.2) mg/dL Total Bilirubin 2.0 H (0.2-1.3) mg/dL AST 26 (14-36) IU/L ALT 20 (<35) IU/L Alkaline Phosphatase 178 H (38-126) U/L Total Creatine Kinase 38 (30-135) U/L Troponin I 0.164 H* (0.01-0.034) ng/mL Total Protein 7.3 (6.3-8.2) g/dL Albumin 4.0 (3.5-5.0) g/dL Globulin 3.3 (1.7-4.1) g/dL Albumin/Globulin Ratio 1.2 (1.0-2.8) Procalcitonin 5.27 H (<0.5) ng/mL Urine Color Yellow Urine Appearance Clear Urine pH 5.5 (4.5-8.0) Ur Specific Naoma 1.015 (1.000-1.035) Urine Protein 2+ H (Negative) Urine Glucose (UA) 2+ H (Negative) g/dL Urine Ketones Negative (NEGATIVE) Urine Occult Blood 2+ H (Negative) Urine Nitrate Negative (Negative) Urine Bilirubin Negative (NEGATIVE) Urine Urobilinogen 0.2 (0.2) E.U./dL Ur Leukocyte Esterase Negative (NEGATIVE) Urine RBC 1-5/hpf (0-5/HPF) Urine WBC None seen (0-5/HPF) Ur Squamous Epith Cells 1-5 /hpf (0-5/HPF) Urine Bacteria None seen (None) Ur Culture Indicated? Cult not indicated Vol Urine Centrifuged 10ml (spun) A.calcoaceticus-baumannii cmplx PCR Not detected (Not Detect) Bacteroides fragilis Not detected (Not Detect) Tiarra albicans (PCR) Not detected (Not Detect) Tiarra auris (PCR) Not detected (Not Detect) C. glabrata (PCR) Not detected (Not Detect) C. krusei (PCR) Not detected (Not Detect) C. parapsilosis (PCR) Not detected (Not Detect) C. tropicalis (PCR) Not detected (Not Detect) C. neoform/gattii (PCR) Not detected (Not Detect) Enterobacterales (PCR) Not detected (Not Detect) E. cloacae complex PCR Not detected (Not Detect) Enterococc faecalis PCR Not detected (Not Detect) Enterococc faecium PCR Not detected (Not Detect) E. coli (PCR) Not detected (Not Detect) H. influenzae (PCR) Not detected (Not Detect) Klebsiella aerogenes (PCR) Not detected (Not Detect) Klebsiella oxytoca PCR Not detected (Not Detect) Klebsiella pneumoniae Not detected (Not Detect) List. monocytogenes PCR Not detected (Not Detect) N. meningitidis (PCR) Not detected (Not Detect) Proteus species (PCR) Not detected (Not Detect) Salmonella spp. (PCR) Not detected (Not Detect) Serratia marcescens PCR Not detected (Not Detect) Staphylococcus sp PCR Not detected (Not Detect) Staph aureus (PCR) Not detected (Not Detect) mecA/C & MREJ Resist Gene Not applicable (Not Detect) mecA/C-Methicil Resis Gene Not applicable (Not Detect) mcr-1 Colistin Res Gene PCR Not applicable (Not Detect) Staph epidermidis (PCR) Not detected (Not Detect) Staph lugdunensis PCR Not detected (Not Detect) S. maltophilia (PCR) Not detected (Not Detect) Streptococcus sp PCR Not detected (Not Detect) Group A Strep (PCR) Not detected (Not Detect) Strep agalactiae (PCR) Not detected (Not Detect) Strep pneumoniae (PCR) Not detected (Not Detect) P. aeruginosa (PCR) Not detected (Not Detect) Chase/B-Vanco Res Genes Not applicable (Not Detect) blaIMP Car res Gene PCR Not applicable (Not Detect) KPC-Carbap Res Gene PCR Not applicable (Not Detect) blaNDM Car Res Gene PCR Not applicable (Not Detect) OXA-48 Carbapenem Resis Gene (PCR) Not applicable (Not Detect) blaVIM Car Res Gene PCR Not applicable (Not Detect) CTX-M Gene Resistance (PCR) Not applicable (Not Detect) 03/11/25 03/11/25 Range/Units 13:11 19:54 WBC (4.5-11.0) X10^3/uL RBC (4.0-5.2) X10^6/uL Hgb (12.0-16.0) g/dL Hct (36-46) % MCV (80-100) fL MCH (26-34) PG MCHC (30-36) % RDW (11.6-14.8) % Plt Count (150-400) X10^3/uL Neut % (Auto) Lymph % (Auto) Carlisle % (Auto) Eos % (Auto) Baso % (Auto) Lymph # (Auto) [place]isle # (Auto) Baso # (Auto) Total Counted Seg Neutrophils % (38-70) % Band Neutrophils % (3-7) % Lymphocytes % (Manual) (25-45) % Monocytes % (Manual) (2-11) % Neutrophils # (Manual) (3682-9114) /uL Nucleated RBCs ( - 0) #/Diff RBC Morphology Anisocytosis VBG pH 7.23 L (7.33-7.43) VBG pCO2 52.9 H (45-50) mmHg VBG pO2 18 L (35-45) mmHg VBG HCO3 22 L (24-28) mmol/L VBG Total CO2 22 L (24-29) mmol/L VBG O2 Saturation 20 L (70-75) % VBG Base Excess -6.5 L (0-4) mmol/L FiO2 % 28.0 % % Sodium 125 L (137-145) mmol/L Potassium 4.2 (3.4-5.1) mmol/L Chloride 92 L (98-107) mmol/L Carbon Dioxide 13 L (22-32) mmol/L BUN 112 H* (7-17) mg/dL Creatinine 3.35 H (0.52-1.04) mg/dL Estimated GFR 16 L (>60) mL/min BUN/Creatinine Ratio 33.4 H (6-22) Glucose 301 H (70-99) mg/dL Lactate (0.7-2.1) mmol/L Calcium 9.6 (8.4-10.2) mg/dL Total Bilirubin (0.2-1.3) mg/dL AST (14-36) IU/L ALT (<35) IU/L Alkaline Phosphatase (38-126) U/L Total Creatine Kinase (30-135) U/L Troponin I (0.01-0.034) ng/mL Total Protein (6.3-8.2) g/dL Albumin (3.5-5.0) g/dL Globulin (1.7-4.1) g/dL Albumin/Globulin Ratio (1.0-2.8) Procalcitonin (<0.5) ng/mL Urine Color Urine Appearance Urine pH (4.5-8.0) Ur Specific Naoma (1.000-1.035) Urine Protein (Negative) Urine Glucose (UA) (Negative) g/dL Urine Ketones (NEGATIVE) Urine Occult Blood (Negative) Urine Nitrate (Negative) Urine Bilirubin (NEGATIVE) Urine Urobilinogen (0.2) E.U./dL Ur Leukocyte Esterase (NEGATIVE) Urine RBC (0-5/HPF) Urine WBC (0-5/HPF) Ur Squamous Epith Cells (0-5/HPF) Urine Bacteria (None) Ur Culture Indicated? Vol Urine Centrifuged A.calcoaceticus-baumannii cmplx PCR (Not Detect) Bacteroides fragilis (Not Detect) Tiarra albicans (PCR) (Not Detect) Tiarra auris (PCR) (Not Detect) C. glabrata (PCR) (Not Detect) C. krusei (PCR) (Not Detect) C. parapsilosis (PCR) (Not Detect) C. tropicalis (PCR) (Not Detect) C. neoform/gattii (PCR) (Not Detect) Enterobacterales (PCR) (Not Detect) E. cloacae complex PCR (Not Detect) Enterococc faecalis PCR (Not Detect) Enterococc faecium PCR (Not Detect) E. coli (PCR) (Not Detect) H. influenzae (PCR) (Not Detect) Klebsiella aerogenes (PCR) (Not Detect) Klebsiella oxytoca PCR (Not Detect) Klebsiella pneumoniae (Not Detect) List. monocytogenes PCR (Not Detect) N. meningitidis (PCR) (Not Detect) Proteus species (PCR) (Not Detect) Salmonella spp. (PCR) (Not Detect) Serratia marcescens PCR (Not Detect) Staphylococcus sp PCR (Not Detect) Staph aureus (PCR) (Not Detect) mecA/C & MREJ Resist Gene (Not Detect) mecA/C-Methicil Resis Gene (Not Detect) mcr-1 Colistin Res Gene PCR (Not Detect) Staph epidermidis (PCR) (Not Detect) Staph lugdunensis PCR (Not Detect) S. maltophilia (PCR) (Not Detect) Streptococcus sp PCR (Not Detect) Group A Strep (PCR) (Not Detect) Strep agalactiae (PCR) (Not Detect) Strep pneumoniae (PCR) (Not Detect) P. aeruginosa (PCR) (Not Detect) Chase/B-Vanco Res Genes (Not Detect) blaIMP Car res Gene PCR (Not Detect) KPC-Carbap Res Gene PCR (Not Detect) blaNDM Car Res Gene PCR (Not Detect) OXA-48 Carbapenem Resis Gene (PCR) (Not Detect) blaVIM Car Res Gene PCR (Not Detect) CTX-M Gene Resistance (PCR) (Not Detect) Urine Dip Bedside Urine Glucose 1000 mg/dl Bedside Urine Bilirubin - Negative Bedside Urine Ketone - Negative Urine Specific Naoma 1.015 Bedside Urine Occult Blood +++ Bedside Urine pH 6.0 Bedside Urine Protein ++ 100 Bedside Urine Urobilinogen - Negative Bedside Urine Nitrite - Negative Bedside Urine Leukocytes - Negative Esterase Imaging Data Chest x-ray: My Impression: Infiltrate at the right base Radiologist's Impression: [address] [address] XRay Report Signed Patient: Margarita Carbajal MR#: [id number] : 1970 Acct:[id number] Age/Sex: 55 / F Date of Service: 03/11/25 Loc: ED Accession Number: [id number] Procedure: XR chest 1V Ordering Provider: Cruzito Goetz MD PROCEDURE: XR CHEST 1V INDICATIONS: headache TECHNIQUE: One view of the chest was acquired. COMPARISON: [facility], CT, CT LUMBAR SPINE WO CON, 03/11/2025, 11:33. [facility], CR, XR CHEST 1 VIEW, 02/03/2022, 10:18. [facility], CR, XR CHEST 1 VIEW, 10/20/2023, 14:30. FINDINGS: Surgical changes and devices: None. Lungs and pleura: Poorly defined opacity can be seen at the right lung base. Low lung volumes are noted. This causes a crowded appearance to the lung markings and limits evaluation. No pneumothorax or pleural effusions are seen. Generalized interstitial prominence can be seen. Mediastinum: Mediastinal contours appear normal. Heart size is moderately enlarged. Bones and chest wall: No suspicious bony lesions. Overlying soft tissues appear unremarkable. IMPRESSION: Cardiomegaly with generalized interstitial prominence. Please consider CHF. On this image, there is apparent superimposed infiltrate at the right lung base. However, differential diagnosis includes atelectasis. If clinically appropriate, a short-term followup chest series (with PA and lateral views) performed in deep inspiration is suggested for further evaluation. Dictated by: Brendan Holt M.D. on 03/11/2025 at 11:09 Approved by: Brendan Holt M.D. on 03/11/2025 at 11:[address]: Radiologist's Impression: [address] [address] [address] Scan Report Signed Patient: Margarita Carbajal MR#: [id number] : 1970 Acct:[id number] Age/Sex: 55 / F Date of Service: 03/11/25 Loc: ED Accession Number: [id number] Procedure: CT lumbar spine wo con Ordering Provider: Cruzito Goetz MD PROCEDURE: CT LUMBAR SPINE WO CON INDICATIONS: back pain history of spine infection TECHNIQUE: Noncontrast 3 mm thick sections acquired from the T12 level to the sacrum. Sagittal and coronal reformats were constructed. For radiation dose reduction, the following was used: automated exposure control. COMPARISON: [facility], MR, MR LUMBAR SPINE WITHOUT CONTRAST, 02/21/2020, 8:47. [facility], CT, CT HEAD/BRAIN WO CON, 03/11/2025, 11:33. [facility], CR, XR CHEST 1V, 03/11/2025, 10:56. [facility], CT, CT ABDOMEN PELVIS WO CON, 01/09/2025, 12:54. FINDINGS: Image quality: This examination is limited by involuntary motion artifact. Bones: There is normal bony alignment. No suspicious lytic or blastic bony lesions. No pars defects. Significant carotid fractures can be seen involving L2, L3, and L4. Mild chronic fracture can be seen involving L5. No new fracture can be seen. No new area of bony lysis or periosteal reaction can be seen. Multifocal degenerative changes are seen, which are similar to the prior CT. A degree of vertebral body fusion can be seen at the T9-T10 level. Soft tissues: No retroperitoneal masses or hematomas. Visualized aorta is normal in caliber. Atherosclerotic calcification is noted. The [place] kidneys are atrophic. IMPRESSION: Prior fractures can be seen, without acute fracture or findings of acute infection to the limits of this noncontrast CT study. If it would be helpful for clinical management decision making in this patient with this given history, please consider a dedicated, scheduled lumbar spine MRI (without and with contrast) for further evaluation (assuming that there is no contraindication). Additional findings: CT scan - head: Radiologist's Impression: [address] [address] [address] Scan Report Signed Patient: Margarita Carbajal MR#: [id number] : 1970 Acct:[id number] Age/Sex: 55 / F Date of Service: 03/11/25 Loc: ED Accession Number: [id number] Procedure: CT head/brain wo con Ordering Provider: Cruzito Goetz MD PROCEDURE: CT HEAD/BRAIN WO CON INDICATIONS: headache TECHNIQUE: Noncontrast 4.5 mm thick angled axial sections acquired from the foramen magnum to the vertex, with coronal and sagittal reformats. For radiation dose reduction, the following was used: automated exposure control, adjustment of mA and/or kV according to patient size. COMPARISON: [facility], MR, MR BRAIN (IAC) WWO CON, 03/10/2021, 13:46. [facility], CR, XR CHEST 1V, 03/11/2025, 10:56. [facility], CT, CT LUMBAR SPINE WO CON, 03/11/2025, 11:33. [facility], CT, CT ANGIO HEAD AND NECK, 02/03/2022, 13:19. FINDINGS: Image quality: There is artifact associated with the metallic earring. CSF spaces: Basal cisterns are patent. No extra-axial fluid collections. Ventricles are normal in size and shape. Brain: No midline shift. No intracranial mass effect or hemorrhage. Law-white matter interface is normal. Skull and face: Calvarium and visualized facial bones are intact, without suspicious lesions. Sinuses: Visualized sinuses and mastoids are clear. IMPRESSION: Unremarkable intracranial study, without an imaging explanation found for the patient's presenting history of headache. To the limits of this noncontrast study, no findings of intracranial masses or mass effect can be seen. ECG Data Interpretation: ECG shows sinus tachycardia without ischemic changes MDM Narrative Medical decision making narrative: 55-year-old female with end-stage renal disease and chronic spinal infection presenting with confusion dyspnea cough and oxygen requirement. The patient has an infiltrate on her chest x-ray. She is quite tachycardic concerning for sepsis but not febrile. Workup shows an infiltrate on her chest x-ray she appears to be acutely ill she has end-stage renal disease and wound dialysis tomorrow. I was able to arrange for transfer to [facility]. She is covered with Zosyn and vancomycin. I considered meningitis however she has respiratory symptoms neck was not stiff. Additionally, code status was discussed with patient and family, patient does not wish to be intubated and did not wish to be resuscitated in the event of a cardiac arrest. <Vickie Rena, DO - Last Filed: 03/12/25 01:47> Lab Data Labs: Lab Results 03/11/25 03/11/25 03/11/25 Range/Units 11:27 12:19 12:57 WBC 13.4 H (4.5-11.0) X10^3/uL RBC 4.80 (4.0-5.2) X10^6/uL Hgb 15.5 (12.0-16.0) g/dL Hct 46.6 H (36-46) % MCV 97.0 (80-100) fL MCH 32.3 (26-34) PG MCHC 33.3 (30-36) % RDW 17.3 H (11.6-14.8) % Plt Count 101 L (150-400) X10^3/uL Neut % (Auto) Not Reportable Lymph % (Auto) Not Reportable Carlisle % (Auto) Not Reportable Eos % (Auto) Not Reportable Baso % (Auto) Not Reportable Lymph # (Auto) Not Reportable Carlisle # (Auto) Not Reportable Baso # (Auto) Not Reportable Total Counted 100 Seg Neutrophils % 80.0 H (38-70) % Band Neutrophils % 18.0 H (3-7) % Lymphocytes % (Manual) 1.0 L (25-45) % Monocytes % (Manual) 1.0 L (2-11) % Neutrophils # (Manual) 68191 H (3576-8855) /uL Nucleated RBCs 1 H ( - 0) #/Diff RBC Morphology See below Anisocytosis 1+ H VBG pH (7.33-7.43) VBG pCO2 (45-50) mmHg VBG pO2 (35-45) mmHg VBG HCO3 (24-28) mmol/L VBG Total CO2 (24-29) mmol/L VBG O2 Saturation (70-75) % VBG Base Excess (0-4) mmol/L FiO2 % % Sodium 126 L (137-145) mmol/L Potassium 4.2 (3.4-5.1) mmol/L Chloride 91 L (98-107) mmol/L Carbon Dioxide 17 L (22-32) mmol/L BUN 109 H* (7-17) mg/dL Creatinine 3.34 H (0.52-1.04) mg/dL Estimated GFR 16 L (>60) mL/min BUN/Creatinine Ratio 32.6 H (6-22) Glucose 323 H (70-99) mg/dL Lactate 2.0 (0.7-2.1) mmol/L Calcium 10.2 (8.4-10.2) mg/dL Total Bilirubin 2.0 H (0.2-1.3) mg/dL AST 26 (14-36) IU/L ALT 20 (<35) IU/L Alkaline Phosphatase 178 H (38-126) U/L Total Creatine Kinase 38 (30-135) U/L Troponin I 0.164 H* (0.01-0.034) ng/mL Total Protein 7.3 (6.3-8.2) g/dL Albumin 4.0 (3.5-5.0) g/dL Globulin 3.3 (1.7-4.1) g/dL Albumin/Globulin Ratio 1.2 (1.0-2.8) Procalcitonin 5.27 H (<0.5) ng/mL Urine Color Yellow Urine Appearance Clear Urine pH 5.5 (4.5-8.0) Ur Specific Naoma 1.015 (1.000-1.035) Urine Protein 2+ H (Negative) Urine Glucose (UA) 2+ H (Negative) g/dL Urine Ketones Negative (NEGATIVE) Urine Occult Blood 2+ H (Negative) Urine Nitrate Negative (Negative) Urine Bilirubin Negative (NEGATIVE) Urine Urobilinogen 0.2 (0.2) E.U./dL Ur Leukocyte Esterase Negative (NEGATIVE) Urine RBC 1-5/hpf (0-5/HPF) Urine WBC None seen (0-5/HPF) Ur Squamous Epith Cells 1-5 /hpf (0-5/HPF) Urine Bacteria None seen (None) Ur Culture Indicated? Cult not indicated Vol Urine Centrifuged 10ml (spun) A.calcoaceticus-baumannii cmplx PCR Not detected (Not Detect) Bacteroides fragilis Not detected (Not Detect) Tiarra albicans (PCR) Not detected (Not Detect) Tiarra auris (PCR) Not detected (Not Detect) C. glabrata (PCR) Not detected (Not Detect) C. krusei (PCR) Not detected (Not Detect) C. parapsilosis (PCR) Not detected (Not Detect) C. tropicalis (PCR) Not detected (Not Detect) C. neoform/gattii (PCR) Not detected (Not Detect) Enterobacterales (PCR) Not detected (Not Detect) E. cloacae complex PCR Not detected (Not Detect) Enterococc faecalis PCR Not detected (Not Detect) Enterococc faecium PCR Not detected (Not Detect) E. coli (PCR) Not detected (Not Detect) H. influenzae (PCR) Not detected (Not Detect) Klebsiella aerogenes (PCR) Not detected (Not Detect) Klebsiella oxytoca PCR Not detected (Not Detect) Klebsiella pneumoniae Not detected (Not Detect) List. monocytogenes PCR Not detected (Not Detect) N. meningitidis (PCR) Not detected (Not Detect) Proteus species (PCR) Not detected (Not Detect) Salmonella spp. (PCR) Not detected (Not Detect) Serratia marcescens PCR Not detected (Not Detect) Staphylococcus sp PCR Not detected (Not Detect) Staph aureus (PCR) Not detected (Not Detect) mecA/C & MREJ Resist Gene Not applicable (Not Detect) mecA/C-Methicil Resis Gene Not applicable (Not Detect) mcr-1 Colistin Res Gene PCR Not applicable (Not Detect) Staph epidermidis (PCR) Not detected (Not Detect) Staph lugdunensis PCR Not detected (Not Detect) S. maltophilia (PCR) Not detected (Not Detect) Streptococcus sp PCR Not detected (Not Detect) Group A Strep (PCR) Not detected (Not Detect) Strep agalactiae (PCR) Not detected (Not Detect) Strep pneumoniae (PCR) Not detected (Not Detect) P. aeruginosa (PCR) Not detected (Not Detect) Chase/B-Vanco Res Genes Not applicable (Not Detect) blaIMP Car res Gene PCR Not applicable (Not Detect) KPC-Carbap Res Gene PCR Not applicable (Not Detect) blaNDM Car Res Gene PCR Not applicable (Not Detect) OXA-48 Carbapenem Resis Gene (PCR) Not applicable (Not Detect) blaVIM Car Res Gene PCR Not applicable (Not Detect) CTX-M Gene Resistance (PCR) Not applicable (Not Detect) 05/19/25 05/19/25 Range/Units 13:11 19:54 WBC (4.5-11.0) X10^3/uL RBC (4.0-5.2) X10^6/uL Hgb (12.0-16.0) g/dL Hct (36-46) % MCV (80-100) fL MCH (26-34) PG MCHC (30-36) % RDW (11.6-14.8) % Plt Count (150-400) X10^3/uL Neut % (Auto) Lymph % (Auto) Carlisle % (Auto) Eos % (Auto) Baso % (Auto) Lymph # (Auto) [place]isle # (Auto) Baso # (Auto) Total Counted Seg Neutrophils % (38-70) % Band Neutrophils % (3-7) % Lymphocytes % (Manual) (25-45) % Monocytes % (Manual) (2-11) % Neutrophils # (Manual) (7769-8090) /uL Nucleated RBCs ( - 0) #/Diff RBC Morphology Anisocytosis VBG pH 7.23 L (7.33-7.43) VBG pCO2 52.9 H (45-50) mmHg VBG pO2 18 L (35-45) mmHg VBG HCO3 22 L (24-28) mmol/L VBG Total CO2 22 L (24-29) mmol/L VBG O2 Saturation 20 L (70-75) % VBG Base Excess -6.5 L (0-4) mmol/L FiO2 % 28.0 % % Sodium 125 L (137-145) mmol/L Potassium 4.2 (3.4-5.1) mmol/L Chloride 92 L (98-107) mmol/L Carbon Dioxide 13 L (22-32) mmol/L BUN 112 H* (7-17) mg/dL Creatinine 3.35 H (0.52-1.04) mg/dL Estimated GFR 16 L (>60) mL/min BUN/Creatinine Ratio 33.4 H (6-22) Glucose 301 H (70-99) mg/dL Lactate (0.7-2.1) mmol/L Calcium 9.6 (8.4-10.2) mg/dL Total Bilirubin (0.2-1.3) mg/dL AST (14-36) IU/L ALT (<35) IU/L Alkaline Phosphatase (38-126) U/L Total Creatine Kinase (30-135) U/L Troponin I (0.01-0.034) ng/mL Total Protein (6.3-8.2) g/dL Albumin (3.5-5.0) g/dL Globulin (1.7-4.1) g/dL Albumin/Globulin Ratio (1.0-2.8) Procalcitonin (<0.5) ng/mL Urine Color Urine Appearance Urine pH (4.5-8.0) Ur Specific Naoma (1.000-1.035) Urine Protein (Negative) Urine Glucose (UA) (Negative) g/dL Urine Ketones (NEGATIVE) Urine Occult Blood (Negative) Urine Nitrate (Negative) Urine Bilirubin (NEGATIVE) Urine Urobilinogen (0.2) E.U./dL Ur Leukocyte Esterase (NEGATIVE) Urine RBC (0-5/HPF) Urine WBC (0-5/HPF) Ur Squamous Epith Cells (0-5/HPF) Urine Bacteria (None) Ur Culture Indicated? Vol Urine Centrifuged A.calcoaceticus-baumannii cmplx PCR (Not Detect) Bacteroides fragilis (Not Detect) Tiarra albicans (PCR) (Not Detect) Tiarra auris (PCR) (Not Detect) C. glabrata (PCR) (Not Detect) C. krusei (PCR) (Not Detect) C. parapsilosis (PCR) (Not Detect) C. tropicalis (PCR) (Not Detect) C. neoform/gattii (PCR) (Not Detect) Enterobacterales (PCR) (Not Detect) E. cloacae complex PCR (Not Detect) Enterococc faecalis PCR (Not Detect) Enterococc faecium PCR (Not Detect) E. coli (PCR) (Not Detect) H. influenzae (PCR) (Not Detect) Klebsiella aerogenes (PCR) (Not Detect) Klebsiella oxytoca PCR (Not Detect) Klebsiella pneumoniae (Not Detect) List. monocytogenes PCR (Not Detect) N. meningitidis (PCR) (Not Detect) Proteus species (PCR) (Not Detect) Salmonella spp. (PCR) (Not Detect) Serratia marcescens PCR (Not Detect) Staphylococcus sp PCR (Not Detect) Staph aureus (PCR) (Not Detect) mecA/C & MREJ Resist Gene (Not Detect) mecA/C-Methicil Resis Gene (Not Detect) mcr-1 Colistin Res Gene PCR (Not Detect) Staph epidermidis (PCR) (Not Detect) Staph lugdunensis PCR (Not Detect) S. maltophilia (PCR) (Not Detect) Streptococcus sp PCR (Not Detect) Group A Strep (PCR) (Not Detect) Strep agalactiae (PCR) (Not Detect) Strep pneumoniae (PCR) (Not Detect) P. aeruginosa (PCR) (Not Detect) Chase/B-Vanco Res Genes (Not Detect) blaIMP Car res Gene PCR (Not Detect) KPC-Carbap Res Gene PCR (Not Detect) blaNDM Car Res Gene PCR (Not Detect) OXA-48 Carbapenem Resis Gene (PCR) (Not Detect) blaVIM Car Res Gene PCR (Not Detect) CTX-M Gene Resistance (PCR) (Not Detect) Urine Dip Bedside Urine Glucose 1000 mg/dl Bedside Urine Bilirubin - Negative Bedside Urine Ketone - Negative Urine Specific Naoma 1.015 Bedside Urine Occult Blood +++ Bedside Urine pH 6.0 Bedside Urine Protein ++ 100 Bedside Urine Urobilinogen - Negative Bedside Urine Nitrite - Negative Bedside Urine Leukocytes - Negative Esterase MDM Narrative Medical decision making narrative: 55-year-old female with end-stage renal disease and chronic spinal infection presenting with confusion dyspnea cough and oxygen requirement. The patient has an infiltrate on her chest x-ray. She is quite tachycardic concerning for sepsis but not febrile. Workup shows an infiltrate on her chest x-ray she appears to be acutely ill she has end-stage renal disease and wound dialysis tomorrow. I was able to arrange for transfer to [facility]. She is covered with Zosyn and vancomycin. I considered meningitis however she has respiratory symptoms neck was not stiff. Additionally, code status was discussed with patient and family, patient does not wish to be intubated and did not wish to be resuscitated in the event of a cardiac arrest. 1999 Dr. Chase-patient is signed out to me by Dr. Goetz I have seen evaluated patient myself. Appears chronically ill is having increased tachypnea difficulty breathing and hypoxia. Currently boyfriend is holding non-rebreather up to her face she was sometimes tolerating BiPAP sometimes tolerating nasal cannula. But definitely has a increased oxygen requirement. Confirmed that she was a DNR DNI with boyfriend and mother. Niether of which are her DPOA, she has no other family. Patient is really not competent or able to confirm DNR/DNI status. She was Gram-positive bacteremia, chronic hemodialysis, does require transfer for a higher level of care for ongoing dialysis needs. mother Soto, cell, Critical Care Time <Vickie Chase DO - Last Filed: 03/12/25 01:47> Critical Care Time Critical Care Time: Yes Total Critical Care Time: 35 Attestation: The high probability of a clinically significant, sudden or life threatening deterioration of the or respiratory system(s) required my full and direct attention, intervention and personal management. The aggregate critical care time was 35 minutes. This time is in addition to time spent performing reported procedures but includes the following: [x] Data Review and interpretation [x] Patient assessment and monitoring of vital signs [x] Documentation [x] Medication orders and management Discharge Plan Departure Patient Disposition: [facility] Clinical Impression: Encephalopathy acute, End stage renal disease on dialysis Sepsis Qualifiers: Sepsis type: sepsis due to unspecified organism Sepsis acute organ dysfunction status: without acute organ dysfunction Qualified Code(s): A41.9 - Sepsis, unspecified organism Pneumonia Qualifiers: Pneumonia type: due to unspecified organism Laterality: right Lung location: lower lobe of lung Qualified Code(s): J18.9 - Pneumonia, unspecified organism Prescriptions: No Action lidocaine 5 % adhesive patch,medicated 1 patch TOP DAILY Qty: 15 0RF Rx Instructions: leave on most painful area for up to 12 hrs ketorolac 10 mg tablet 10 mg PO Q6H PRN (Reason: pain) Qty: 10 0RF doxycycline hyclate 100 mg tablet 100 mg PO BID Qty: 20 0RF Referrals: Meagan Green MD [Primary Care Provider] -
--- NOTE | 2025-03-11 11:16 | PC.NURSE ---
1105 Multiple attempts at IV by this EDRN (both peripherally and ultrasound guided) were unsuccessful. DI Nurse called at this time and asked to come down. Lab also coming to draw blood.
[2025-03-11 11:50] LABS: Hematocrit 46.6 % (36-46); Hemoglobin 15.5 g/dL (12.0-16.0); Mean Corpuscular HGB Conc 33.3 % (30-36); Mean Corpuscular Hemoglobin 32.3 PG (26-34); Platelet Count 101 X10^3/uL (150-400); Red Cell Distribution Width 17.3 % (11.6-14.8); White Blood Cell Count 13.4 X10^3/uL (4.5-11.0)
[2025-03-11 11:51] LABS: Add Manual Diff / Slide Review YES
--- NOTE | 2025-03-11 11:54 | PC.NURSE ---
Patient here with mother who reports the patient gets dialysis weekly, last dialysis was last Tuesday, she is due for it tomorrow. They are here today for headache, nausea, neck and back pain. Patient has ongoing issue with a spinal infection for which she is seen by infectious disease and takes antibiotics. She also has an ongoing issues with wounds to feet/ulcer due to diabetes. Right foot has a wound that appears to be ulcer that is healing. Picture placed in chart by Alyssa WEST. Patient's hands and feet appear purple and cold with various scabs and wounds. Mom states they are unsure if wounds are vascular and that infectious disease thinks they may be warts of some kind. Patient also reports some urinary symptoms which she thought was a yeast infections since last week. Mom reports patient has been intermittently confused and also lethargic/fatigued. Patient awakens and answers questions then falls back to sleep.
[2025-03-11 12:01] LABS: Alanine Aminotransferase 20 IU/L (<35); Albumin Globulin Ratio 1.2 (1.0-2.8); Alkaline Phosphatase 178 U/L (38-126); Aspartate Aminotransferase 26 IU/L (14-36); BUN Creatinine Ratio 32.6 (6-22); Calcium 10.2 mg/dL (8.4-10.2); Carbon Dioxide 17 mmol/L (22-32); Chloride 91 mmol/L (98-107); Creatine Kinase 38 U/L (30-135); Estimated Glomerular Filt Rate 16 mL/min (>60); Globulin 3.3 g/dL (1.7-4.1); Glucose 323 mg/dL (70-99); HEMOLYSIS < 15 (0-50); Potassium 4.2 mmol/L (3.4-5.1); Sodium 126 mmol/L (137-145); Total Protein 7.3 g/dL (6.3-8.2)
[2025-03-11 12:02] LABS: Neutrophils Absolute Manual 13132 /uL (3000-5900); Nucleated Red Blood Cells 1 #/Diff; Total Cells Counted 100
[2025-03-11 12:03] LABS: Anisocytosis 1+
[2025-03-11 12:04] LABS: Blood Urea Nitrogen 109 mg/dL (7-17)
[2025-03-11 12:14] LABS: Troponin I 0.164 ng/mL (0.01-0.034)
[2025-03-11 12:17] LABS: Procalcitonin 5.27 ng/mL (<0.5)
[2025-03-11] MEDS: OXYCODONE IR 5 MG TABLET 10 MG PO (12:28)
[2025-03-11] MEDS: ACETAMINOPHEN 325 MG TABLET PO (12:29)
--- NOTE | 2025-03-11 12:47 | EKG_ITS ---
[address] [id number] [address] [address] Test Date: 2025-03-11 Pat Name: Margarita Carbajal Department: Room: Gender: Female Degreaser: SHAVON : 1970 Requested By: Order Number: [id number] Reading MD: Yuri Avila Measurements Intervals [place] Rate: 147 P: 60 FL: 154 QRS: 150 QRSD: 98 T: 6 QT: 278 QTc: 435 Interpretive Statements Critical Test Result: High HR Sinus tachycardia Low voltage QRS Possible Anterolateral infarct , age undetermined Electronically Signed On 03-13-2025 16:19:15 PDT by Yuri Avila
--- NOTE | 2025-03-11 12:48 | PC.NURSE ---
While in room patient started having tachycardia and becoming more agitated. Repeated EKG and notified provider of agitation and rigors that preceded and gave him EKG. Provider to bedside.
[2025-03-11 13:11] LABS: Appearance Urine UA CLEAR; Bilirubin Urine UA NEGATIVE (NEGATIVE); Color Urine UA YELLOW; Glucose Urine UA 2+ g/dL (Negative); Ketones Urine UA NEGATIVE (NEGATIVE); Leukocyte Esterase Urine UA NEGATIVE (NEGATIVE); Nitrite Urine UA NEGATIVE (Negative); Occult Blood Urine UA 2+ (Negative); Protein Urine UA 2+ (Negative); Specific Gravity Urine UA 1.015 (1.000-1.035); Urobilinogen Urine UA 0.2 E.U./dL (0.2)
[2025-03-11 13:12] LABS: pH Urine UA 5.5 (4.5-8.0)
[2025-03-11 13:15] LABS: Urine Volume 10mL (spun)
[2025-03-11] MEDS: HALOPERIDOL 5 MG/ML VIAL IV (13:15)
[2025-03-11 13:16] LABS: Bacteria Urine None Seen; Culture Indicated Urine Cult Not Indicated; RBC Urine 1-5/HPF (0-5/HPF); Squamous Epithelial Cell Urine 1-5 /HPF (0-5/HPF); WBC Urine None Seen (0-5/HPF)
[2025-03-11 13:16] LABS: Base Excess VBG -6.5 mmol/L (0-4); HCO3 VBG 22 mmol/L (24-28); Oxygen Saturation VBG 20 % (70-75); PCO2 VBG 52.9 mmHg (45-50); PO2 VBG 18 mmHg (35-45); Total CO2 VBG 22 mmol/L (24-29); pH VBG 7.23 (7.33-7.43)
[2025-03-11] MEDS: PIPERACILLIN/TAZO 4.5 GM in SODIUM CHLORIDE 0.9% 100 ML IV (13:16)
[2025-03-11] MEDS: ALBUTEROL/IPRATROPIUM 3 ML AMPUL INH (13:33)
[2025-03-11] MEDS: VANCOMYCIN 1,500 MG/300 ML PIGGYBACK 200 MG IV (13:54)
--- NOTE | 2025-03-11 15:12 | PC.NURSE ---
Patient had been on bipap and was no longer tolerating it. Currently on oximask, 8L.
[2025-03-11] MEDS: SODIUM CHLORIDE 0.9% 1,000 ML 1000 ML IV (15:35)
[2025-03-11] MEDS: ACETAMINOPHEN IV 1,000 MG/100 ML VIAL 400 MG IV (16:35)
[2025-03-11 20:10] LABS: Acinetobacter calcoa-baumannii Not Detected (Not Detect); Bacteroides fragilis Not Detected (Not Detect); Candida albicans Not Detected (Not Detect); Candida auris Not Detected (Not Detect); Candida glabrata Not Detected (Not Detect); Candida krusei Not Detected (Not Detect); Candida parapsilosis Not Detected (Not Detect); Candida tropicalis Not Detected (Not Detect); Cryptococcus neoformans/gatti Not Detected (Not Detect); Enterobacter cloacae complex Not Detected (Not Detect); Enterobacterales Not Detected (Not Detect); Enterococcus faecalis Not Detected (Not Detect); Enterococcus faecium Not Detected (Not Detect); Haemophilus influenzae Not Detected (Not Detect); Klebsiella aerogenes Not Detected (Not Detect); Listeria monocytogenes Not Detected (Not Detect); Neisseria meningitidis Not Detected (Not Detect); Proteus species Not Detected (Not Detect); Pseudomonas aeruginosa Not Detected (Not Detect); Salmonella species Not Detected (Not Detect); Serratia marcescens Not Detected (Not Detect); Staphylococcus epidermidis Not Detected (Not Detect); Staphylococcus lugdunensis Not Detected (Not Detect); Staphylococcus species Not Detected (Not Detect); Stenotrophomonas maltophilia Not Detected (Not Detect); Streptococcus agalactiae (Gr B Not Detected (Not Detect); Streptococcus pneumonia Not Detected (Not Detect); Streptococcus pyogenes (Gr A) Not Detected (Not Detect); Streptococcus species Not Detected (Not Detect)
[2025-03-11 20:18] LABS: BUN Creatinine Ratio 33.4 (6-22); Calcium 9.6 mg/dL (8.4-10.2); Carbon Dioxide 13 mmol/L (22-32); Chloride 92 mmol/L (98-107); Estimated Glomerular Filt Rate 16 mL/min (>60); Glucose 301 mg/dL (70-99); HEMOLYSIS 46 (0-50); Potassium 4.2 mmol/L (3.4-5.1); Sodium 125 mmol/L (137-145)
[2025-03-11 20:27] LABS: Blood Urea Nitrogen 112 mg/dL (7-17)
[2025-03-11] MEDS: PIPERACILLIN/TAZO 3.375 GM in SODIUM CHLORIDE 0.9% 100 ML IV (20:43)
== END 2025-03-11 22:37 | disposition short-term general hospital (02) ==
PROVIDERS: Emergency Medicine; Emergency Provider Emergency Medicine; PCP Family Medicine
DX: G93.40 Encephalopathy, unspecified (principal); A41.9 Sepsis, unspecified organism; J18.9 Pneumonia, unspecified organism; R41.0 Disorientation, unspecified; N18.6 End stage renal disease; Z99.2 Dependence on renal dialysis
CPT/HCPCS: 36415; 70450; 71045; 72131; 80048; 80053; 81001; 81003; 82550; 82805; 83605; 84145; 84484; 85007; 85025; 87040; 87077; 87154; 93005; 96365; 96366; 96367; 96375; 99284; 99291; J0131; J1630; J2543